=== PATIENT | female | born 1945 | race Caucasian/White ===

== ENCOUNTER 2017-11-24 05:29 | Inpatient (IN) | payer MEDICARE ==
[~2017-11-24] VITALS: Ht 154.9 cm; Wt 52.8 kg
[~2017-11-24 05:29] MED LIST: ALEVE; Z.0.BYSTOLIC10 MG PO; Z.0.FLEXERIL10 MG PO; Z.0.SYNTHROID137 MCG PO
--- NOTE | 2017-11-24 06:55 | Diagnostic Imaging Report ---
EXAMINATION: Head CT without contrast. HISTORY:Confusion and slurred speech. COMPARISON:None. TECHNIQUE: Multidetector axial images were obtained from the foramen magnum to the vertex without contrast. The images were reconstructed using brain and bone algorithms. Thin section brain images were reformatted into coronal and sagittal planes. Dose modulation, iterative reconstruction, and/or weight based adjustment of the mA/kV was utilized to reduce the radiation dose to as low as reasonably achievable. Intravenous contrast: None IMAGE QUALITY: Acceptable. FINDINGS: Skull/scalp: No lytic or blastic. lesions. No surgical changes. Parenchyma: Nonspecific few, scattered supratentorial white matter patchy hypodensity are likely related to small vessel ischemic changes. No acute hemorrhage, mass or acute major vascular territorial infarct. Arteries: No density suggestive of thrombosis. Dural sinuses: No abnormal density suggestive of thrombosis. Ventricles: No hydrocephalus or displacement. Extra-axial spaces: No abnormal density. Brain volume: Generalized age-related cerebral volume loss. Craniocervical junction: No mass, Chiari malformation, or basilar invagination. Sella: No mass. Paranasal/mastoid sinuses: Imaged portions unremarkable. IMPRESSION: No acute intracranial abnormality. Mild supratentorial white matter microvascular ischemic changes. Generalized age-related cerebral volume loss. Signed by: Dr. Jessica Smith M.D. on 11/24/2017 6:51 AM
[2017-11-24] MEDS ORDERED: ASPIRIN 325 MG TAB PO ONE (07:00)
[2017-11-24 08:14] VITALS: BP 139/72
[2017-11-24 08:56] VITALS: BP 139/72
[2017-11-24] MEDS: SODIUM CHLORIDE 0.9% 1000ML 1,000 ML IV SCH (10:30)
--- NOTE | 2017-11-24 12:01 | Diagnostic Imaging Report ---
Examination: Brain MRI without Contrast History: 72-year-old female with confusion and slurred speech. Comparison studies: Head CT performed earlier the same day. Technique: Precontrast: Hi resolution Sag T1 with coronal and axial reformats. Axial DWI, T2, T2 flair, gradient echo or SWI Intravenous contrast: None. Findings: Structural lesions: No intra-or extra-axial masses. No hematomas. Atrophy: General: Symmetric and age appropriate. Focal: No disproportionate lobar, hippocampal, mesencephalic, pontine, or cerebellar atrophy. Recio matter: Cortex:No signal abnormalities. No encephalomalacia. Basal ganglia: No atrophy or signal abnormalities. Thalami: No signal abnormalities. Micro hemorrhages: None. White matter signal intensity: There are patchy and confluent areas of T2/FLAIR hyperintensity in the periventricular and subcortical white matter, nonspecific. . Subarachnoid spaces: No signal abnormalities. Ventricles: Normal in size and configuration. No hydrocephalus. Hippocampi, fornix and mammillary bodies: Normal in size and symmetric. Other: Skull: No bone marrow abnormalities. Vessels: Expected flow voids present in the major arteries and dural sinuses.. Sella: Normal in size. No intra-or suprasellar abnormalities. Cranio-cervical junction: No abnormalities. Patent foramen magnum. No Chiari one malformation. Paranasal sinuses: No T2 hyperintense mucosal thickening. IMPRESSION: 1. No acute intracranial abnormality, specifically, no acute infarct. 2. Mild chronic microvascular ischemic change. Signed by: Dr. Ana Cristina Arevalo M.D. on 11/24/2017 11:57 AM
[2017-11-24 12:09] VITALS: BP 142/67
[2017-11-24] MEDS ORDERED: LEVOTHYROXINE75 MCG PO (12:18)
[2017-11-24] MEDS ORDERED: BYSTOLIC2.5 MG PO (12:18)
[2017-11-24] MEDS ORDERED: IBUPROFEN 200 MG TAB PO PRN (13:45)
[2017-11-24 14:10] LABS: CREATINE KINASE 168 IU/L (29-168)
[2017-11-24 15:53] VITALS: BP 144/66
--- NOTE | 2017-11-24 16:47 | History and Physical ---
HISTORY OF PRESENT ILLNESS: Patient is doing well. She came originally with slurred speech. MRI of the head is completely unremarkable. No evidence of any stroke. REVIEW OF SYSTEMS CARDIOVASCULAR: No chest pain or palpitation. RESPIRATORY: No shortness of breath. No cough. GASTROINTESTINAL: No nausea. No vomiting. No diarrhea. GENITOURINARY: No urinary frequency. No dysuria. MUSCULOSKELETAL: She has chronic pain in the right leg. PAST MEDICAL HISTORY: Hypothyroidism and hypertension. ALLERGIES: ALLERGIC TO ASPIRIN, CODEINE, OXYCODONE AND ERYTHROMYCIN. SOCIAL HISTORY: She does not smoke. She does not drink. PHYSICAL EXAMINATION HEART: Shows regular rhythm. Normal S1 and S2 sounds. LUNGS: Clear bilaterally. ABDOMEN: Soft. EXTREMITIES: Show no evidence of cyanosis, edema, or trauma. NEUROLOGIC: Alert and oriented x3. Cranial nerves II through XII within normal limits. Motor strength is 5/5 in upper and lower extremities. VITAL SIGNS: Blood pressure is 142/67, temperature 97.3, heart rate 79 per minute, respiratory rate 14 per minute, and oxygen saturation 98%. FINAL IMPRESSION 1. Slurred speech which is completely resolved, most likely secondary to questionable transient ischemic attack. 2. Hypertension. 3. Hypothyroidism. 4. Right leg pain. PLAN: We consulted Dr. Laure Garcia. MRI showed no evidence of stroke. Carotid Doppler and echocardiogram have been ordered. We are going to order an arterial Doppler of the right leg because of the pain that she is having. We are going to resume the home medications including antihypertensive regimen and thyroid medication. We are going to give some Aleve for pain. Workup in progress. She is on telemetry. Job#: [id number] HARDIK
[2017-11-24 17:12] LABS: CLARITY,URINE CLEAR (CLEAR); COLOR,URINE YELLOW (YELLOW)
[2017-11-24 17:15] LABS: LEUKOCYTE ESTERASE ,URINE NEGATIVE (NEGATIVE); NITRITE,URINE NEGATIVE (NEGATIVE)
[2017-11-24 17:24] LABS: PROTEIN,URINE DIPSTICK NEGATIVE (NEGATIVE)
[2017-11-24 17:25] LABS: BILIRUBIN,URINE NEGATIVE (NEGATIVE); KETONES,URINE NEGATIVE (NEGATIVE); URINE UROBILINOGEN 0.2 mg/dL (0.2 - 1)
[2017-11-24 17:27] LABS: BACTERIA,URINE FEW /HPF; EPITHELIAL CELLS,URINE FEW /LPF; WBC,URINE (MAN) 0-5 /HPF (0-5)
[2017-11-24 19:32] LABS: CREATINE KINASE 220 IU/L (29-168)
[2017-11-24 19:59] VITALS: BP 137/64
[2017-11-24 20:00] VITALS: BP 137/64
[2017-11-25] VITALS (7 sets, daily range): BP systolic 135–165; BP diastolic 58–79
--- NOTE | 2017-11-25 02:07 | Consultation ---
DATE OF CONSULTATION: November 24, 2017 NEUROLOGY CONSULT NOTE HISTORY OF PRESENT ILLNESS: Ms. Houser is a 72-year-old right hand dominant woman with past medical history significant for hypertension and thyroid disease, admitted to [facility] on November 24, 2017 for symptoms suspicious for a "stuttering TIA." For the past 3 days, the patient has experienced a decrease in sleep secondary to pain affecting the right hip, right leg, and to a lesser extent, the left leg. In addition to this decrease in sleep, the patient has experienced increased psychosocial stress secondary to caring for her grandchildren who are residing at her home at present. For the past 3 evenings, the patient and her have noticed slightly worsening confusion, which is further characterized as the patient "loosing her train of thoughts." Ms. Houser endorses possible slurred speech and expressive aphasia as well. These symptoms are not present in the mornings: Her reports that patient does "very well" in the mornings. The symptoms only appear in the evenings and last for a few hours. Ms. Houser reports no visual field cut or other disturbance, facial droop, hemiparesis, hemihypesthesia, poor balance or impairment of gait, or dizziness. She does report fatigue. The patient's reports Ms. Houser experiences occasional confusion, once again described as "losing her train of thoughts," for the past one to two years. Both the patient and her have discussed this with patient's primary care physician who attributed symptoms to normal aging. Due to the symptoms described above, but more specifically for the pain in the patient's right hip and legs, Ms. Houser presented to the emergency care in the [facility] of November 24, 2017 for further evaluation. Ms. Houser was subsequently admitted to [facility] under observation status for further evaluation and treatment for a "stuttering TIA." Ms. Houser does report an intermittent resting tremor affecting the right hand. Both, she and her endorse hypophonia and slowness of movement. The patient reports possible freezing as well. There is no family history of tremor or Parkinson's disease. REVIEW OF SYSTEMS: Fatigue, joint pains, confusion, dysarthria, aphasia, hypophonia, slowness of movement, and pain in the right and left leg. Otherwise, the 12-point review of systems is negative. PAST MEDICAL HISTORY: Hypertension and hypothyroidism. PAST SURGICAL HISTORY: Bilateral cataract removal and tonsillectomy. PAST HOSPITALIZATIONS: Surgeries/procedures as listed, bronchitis in high school, and childbirth x2. FAMILY MEDICAL HISTORY: Patient's paternal and maternal grandparents are . The paternal grandfather's medical history is unknown. The paternal grandmother is from coronary artery disease with myocardial infarction. Both maternal grandparents are from natural causes/old age. The patient's father and mother are both . Ms. Houser's father is from stroke. Ms. Houser's mother had a history of diabetes mellitus, colon cancer, and failure to thrive. The patient has one sibling who is alive. He was recently diagnosed with metastatic cancer, primary unknown at present. Ms. Houser has 2 daughters who are both alive and healthy. SOCIAL HISTORY: The patient is . She is retired. The patient does not report current or prior tobacco exposure or recreational drug use. HOME MEDICATIONS: Please see the list available in the electronic medical record. ALLERGIES: ERYTHROMYCIN. NO KNOWN FOOD ALLERGIES. NO KNOWN ALLERGIES TO LATEX. NO KNOWN ALLERGIES TO IODINE OR OTHER CONTRAST MATERIALS. PHYSICAL EXAMINATION VITAL SIGNS: Height 61 inches and weight 114 pounds; BMI 21.6 kg per meter squared. Blood pressure 139/72 mmHg, pulse 74 beats per minute, respiratory rate 14 breaths per minute, and oxygen saturation 98% on room air. GENERAL: Patient is awake and alert, does not appear distressed. Masked facies. HEENT: Normocephalic, atraumatic. Pupils are surgical. Moist mucous membranes. NECK: Supple. No appreciable thyromegaly. No appreciable carotid bruits. CARDIOVASCULAR: S1 and S2. Regular rate and rhythm. No murmurs, rubs, or gallops. RESPIRATORY: Clear to auscultation bilaterally. No wheezes, rhonchi, or rales. EXTREMITIES: The skin is warm and dry. No clubbing, cyanosis, or edema. The posterior tibial and dorsalis pedis pulses are 2+ and symmetric. SKIN: No rashes or lesions. NEUROLOGIC Memory/Attention: The patient is awake and alert to person, place, time, and situation. Cranial Nerves: Cranial nerve 1-not tested. Cranial nerves 2, 3, 4, and 6-pupils are surgical. Extraocular movements are intact except as follows: Impairment of upward gaze. No nystagmus. Cranial nerve 5-sensation to light touch and pinprick is intact in the bilateral V1 through V3 distributions. Strength of the temporalis and masseter muscles is within normal limits. Cranial nerve 7-The face is symmetric as are all facial movements. Strength is within normal limits. Cranial nerve 8-Hearing is intact to finger rub bilaterally. Cranial nerve 9, 10-The soft palate elevates equally and symmetrically. Cranial nerve 11-Normal strength of the bilateral sternocleidomastoid and trapezius muscles. Cranial nerve 12-The tongue protrudes midline and moves symmetrically from [id number]. Strength: Bulk is normal. Strength is 5/5 in the bilateral deltoids, biceps, triceps, wrist flexors and extensors, finger flexors and extensors, intrinsic hand muscles, hip flexors, knee flexors and extensors, ankle dorsiflexion and plantar flexion, and intrinsic foot muscles. Tone is increased in all 4 extremities with cogwheeling in both arms. DTRs: Deep tendon reflexes are 2+ and symmetric at the triceps, biceps, brachioradialis, patellas, and Achilles. Plantar responses are flexor bilaterally. Sensation: Sensation is intact to light touch and pinprick in both arms and both legs. Cerebellar: Ezzvmt-lefr-fquyts and heel-barber movements are slowed without dysmetria or other impairment. There is segmental hypokinesis with finger and toe tapping, right greater than left. Gait: Spontaneous gait demonstrates a stooped posture and widened base with diminished arm swing bilaterally. Speech: Spontaneous speech is hypophonic without appreciable dysarthria or aphasia. Repetition is intact. Involuntary Movements: None. Pronator Drift: None. LABORATORY DATA: A complete metabolic panel is unremarkable. Cardiac enzymes are negative x1. The CBC with differential and platelets reveals a white blood cell count of 8.2 with a normal differential. The hemoglobin and hematocrit are 13.3 and 38.2, respectively. The platelet count is 208. PT 13.3 and INR 1.1. A urine drug screen was negative. DIAGNOSTIC STUDIES: Electrocardiogram on November 24, 2017: Normal sinus rhythm at [address] of the brain without contrast 11/24/2017: On my review, there is no evidence of recent large territorial ischemia, hemorrhage, mass, or mass effect. There is diffuse cerebral atrophy, appropriate for age. There are findings compatible with mild chronic small vessel ischemic disease. ASSESSMENT AND PLAN: Ms. Houser is a 72-year-old right hand dominant woman with past medical history significant for hypertension and hypothyroidism, admitted to [facility] on November 24, 2017 with mild confusion and possible dysarthria and expressive aphasia present only in the evenings in the setting of increased psychosocial stress and decreased sleep secondary to pain in the right hip and both legs, right greater than left. The patient has undergone a detailed neurological examination with findings as documented above. Patient's laboratory data and other diagnostic studies have been reviewed and are documented above. In my opinion, it is unlikely that Ms. Houser has experienced a transient ischemic attack/stroke. The above symptoms are probably secondary to increased psychosocial stress in combination with decreased sleep over the past 3 days. In the patient's history and on her neurological examination, there are symptoms and signs compatible with Parkinson's disease. Ms. Houser is not currently taking any medications, nor has she taken any medications in the past, which would cause extrapyramidal side effects. Therefore, drug effect cannot be the source of the patient's parkinsonism. A MRI of the brain without contrast has been ordered and will be obtained to evaluate for chronic small vessel ischemic disease as a source of vascular parkinsonism; however, if the MRI of the brain is negative, Ms. Houser will be prescribed antiparkinsonian medication for probable idiopathic Parkinson's disease. Thank you for this consultation. I will continue to follow this patient while she remains in the hospital. Time spent: 70 minutes. Job#: [id number] VAS MTDD
[2017-11-25] MEDS: IBUPROFEN 200 MG TAB PO PRN ×2 (02:54→09:19)
[2017-11-25] MEDS: SODIUM CHLORIDE 0.9% 1000ML 1,000 ML IV SCH ×2 (02:54→10:06)
[2017-11-25 03:26] LABS: CREATINE KINASE MB 9.5 ng/mL (0-5.0)
[2017-11-25] MEDS: LEVOTHYROXINE SODIUM 75 MCG TAB PO SCH (05:26)
[2017-11-25 06:37] LABS: BASOPHILS # (AUTO) 0.1 (0.0-0.1); BASOPHILS % 0.5 % (0.0-1.0); EOSINOPHILS # (AUTO) 0.1 (0.0-0.4); EOSINOPHILS % 0.4 % (0.0-6.0); HEMOGLOBIN 12.7 g/dL (12.0-16.0); LYMPHOCYTES # (AUTO) 3.3 (1.0-3.2); MEAN CORPUSCULAR HEMOGLOBIN 30.3 pg (28-32); MEAN CORPUSCULAR HGB CONC 33.4 g/dL (31-35); MEAN CORPUSCULAR VOLUME 90.7 fL (81-99); MONOCYTES # (AUTO) 0.8 (0.2-0.8); MONOCYTES % 7.3 % (4.4-11.3); NEUTROPHILS % 62.5 % (38.7-80.0); PLATELET COUNT 241 x10e3/uL (140-360); RED BLOOD COUNT 4.19 x10e6/uL (3.6-5.1); RED CELL DISTRIBUTION WIDTH 13.1 % (11.7-14.4)
[2017-11-25 06:57] LABS: ANION GAP 15.7 mmol/L (8-16); BLOOD UREA NITROGEN 15 mg/dL (7-26); BUN/CREATININE RATIO 16 (6-25); CALCIUM 9.3 mg/dL (8.4-10.2); CARBON DIOXIDE 20 mmol/L (22-29); CHLORIDE 103 mmol/L (98-107); CHOL/HDL RATIO 3.1 (3.0-3.6); CHOLESTEROL 172 MD/DL (0-199); CREATININE, SERUM 0.91 mg/dL (0.57-1.11); EST GLOMERULAR FILTRATION RATE > 60 ML/MIN (60-); GLUCOSE 98 mg/dL (74-118); HDL CHOLESTEROL 55 MG/DL (40-60); LDL CHOLESTEROL 105 MG/DL (60-130); POTASSIUM 3.7 mmol/L (3.5-5.1); SODIUM 135 mmol/L (136-145); TRIGLYCERIDES 58 MG/DL (0-149)
[2017-11-25] MEDS: ASPIRIN 325 MG TAB EC PO SCH (09:19)
[2017-11-25] MEDS ORDERED: ZOLPIDEM TARTRATE 5 MG TAB PO PRN (12:15)
[2017-11-25] MEDS ORDERED: TRAMADOL/APAP 37.5MG-325MG TAB PO PRN (12:15)
--- NOTE | 2017-11-25 13:04 | Progress Note ---
DATE: INTERNAL MEDICINE PROGRESS NOTE SUBJECTIVE: Patient is complaining of right hip pain. She was found to have high CPK also, insomnia is also her complaint. Dr. Garcia, neurology, saw the patient. Her impression is that she most likely has also Parkinson's disease. She denies any other symptoms like chest pain or shortness of breath. PHYSICAL EXAMINATION VITAL SIGNS: Blood pressure 151/68, temperature 96.6, heart rate 91 per minute, respiratory rate 18 per minute, oxygen saturation 98%. HEART: Shows regular rhythm. Normal S1, S2 sounds. LUNGS: Clear bilaterally. ABDOMEN: Soft. EXTREMITIES: Show no evidence of cyanosis, edema, or trauma. Pulses are decreased on both pedal arteries in both feet. LABORATORY DATA: On the BMP, sodium 135, potassium 3.7, chloride 103, CO2 of 20, BUN 15, creatinine 0.91, glucose 98. On the CBC, white blood count 11,100, hemoglobin 12.7, hematocrit 38.0, platelet count 241,000. CPK has been elevated along with CK-MB, but troponins x3 are completely normal. FINAL IMPRESSION 1. Parkinson's disease. 2. Rhabdomyolysis. 3. Right hip and right leg pain. 4. Uncontrolled hypertension. 5. Insomnia. 6. Hypothyroidism. PLAN OF TREATMENT: Continue IV fluids with normal saline 75 mL an hour. Repeat CK and CK-MB tomorrow. We are going to consult Dr. Cartwright, solution engineer, since he is her solution engineer from the past because of elevated CK and CK-MB, which most likely is secondary to rhabdomyolysis. Continue aspirin 325 mg daily, Zofran 4 mg IV q.4. hours as needed, levothyroxine 75 mcg daily, ibuprofen 400 mg q.6 hours as needed. She is going to be on BuSpar 5 mg q.8 hours as needed for anxiety and trazodone at night as needed. We are going to discontinue telemetry. We are going to order an MRI of the lumbar spine and the right hip also. Dr. Muller will resume her care in the morning. Job#: [id number] LPA
[2017-11-25] MEDS: BUSPIRONE HCL 5 MG TAB PO SCH ×2 (15:12→21:00)
[2017-11-25] MEDS: CARBIDOPA/LEVODOPA 25/100 TAB PO SCH ×2 (15:12→21:00)
[2017-11-25 15:34] LABS: CREATINE KINASE 933 IU/L (29-168)
[2017-11-25] MEDS: ONDANSETRON HCL INJ 2 MG/ML VIAL IV PRN ×2 (18:18→22:40)
[2017-11-25] MEDS: TRAZODONE HCL 50 MG TAB PO SCH (21:00)
[2017-11-25] MEDS ORDERED: HYDRALAZINE HCL 20 MG/ML VIAL IV PRN (21:15)
[2017-11-25] MEDS ORDERED: APIXAB 2.5 MG TABLET PO STA (23:31)
--- NOTE | 2017-11-25 23:42 | Consultation ---
DATE OF CONSULTATION: CARDIOLOGY CONSULTATION REASON FOR CONSULTATION: Abnormal labs. CONSULTING PHYSICIAN: Dr. Villela. HISTORY OF PRESENT ILLNESS: Ms. Houser is a 72-year-old female who is well known to our practice and was actually seen approximately 3 weeks ago and was doing well at that time. She reports that she came in to the ER after episodes of slurred speech and also worsening right lower extremity pain that had been ongoing for a few weeks. On admission, MRI of the head was unremarkable and no evidence of acute stroke. Reason for consultation was due to elevated CK-MB. Patient denies any chest pain, shortness of breath, palpitation, dizziness, syncope or dysuria. She does report trouble with her memory. REVIEW OF SYSTEMS: Negative except as mentioned above. PAST MEDICAL HISTORY: Includes hypothyroidism and hypertension. SOCIAL HISTORY: She does not smoke or drink. She lives with family and has multiple children. PHYSICAL EXAMINATION: VITALS: Temperature 97.6, pulse 73, respiratory rate 12, blood pressure 135/58. Oxygen saturation 100% on room air. GENERAL: Alert and oriented x3, resting comfortably in bed, does not appear to be in any acute distress. NECK: Supple. No JVD noted LUNGS: Clear to auscultation throughout. No wheezing, no rhonchi, no crackles. CARDIOVASCULAR: Regular rate and rhythm. Normal S1, S2. No S3 or S4 auscultated. No gallops. ABDOMEN: Soft, nontender. LOWER EXTREMITIES: 2+ pedal pulses. CARDIOVASCULAR MEDICATIONS: Aspirin 325 p.o. daily, Bystolic 5 mg p.o. daily. LABS: WBC 11.19, hemoglobin 12.7, hematocrit 38.0, platelet 241. Sodium 135, potassium 3.7, BUN 15, creatinine 0.91. Creatine kinase 507. CK-MB 9.50. Troponin 0.002. LDL 105, HDL 55, total cholesterol 172. TELEMETRY: Normal sinus rhythm. IMPRESSION 1. Right lower extremity pain, likely musculoskeletal. 2. Hypertension. 3. Hypothyroidism. 4. Abnormal cardiac enzymes. RECOMMENDATIONS: Carotid ultrasound, echocardiogram, and also lower extremity arterial ultrasound, all normal. Continue the above list of cardiac medications. Plan for stress test in the course of this hospital stay. Maintain on telemetry. Repeat cardiac enzymes. Continue care with neurology. Hydration discussed with patient and also family. We will continue to follow this patient closely. Thank you for this consultation. Dictated By: Pepper Valentine NP Job#: [id number] VAS
[2017-11-25] MEDS ORDERED: AMIODARONE HCL 150MG 100 ML IV ONE (23:45)
[2017-11-26] VITALS (66 sets, daily range): BP systolic 62–156; BP diastolic 40–144
[2017-11-26] MEDS: SODIUM CHLORIDE 0.9% 1000ML 1,000 ML IV SCH ×2 (00:05→09:24)
[2017-11-26] MEDS ORDERED: DIGOXIN INJ 0.25 MG/ML 2 ML AMP ONE (01:52)
[2017-11-26] MEDS: SODIUM CHLORIDE 0.9% 1000ML 500 ML IV SCH ×2 (01:56→02:13)
[2017-11-26] MEDS ORDERED: DIGOXIN INJ 0.25 MG/ML 2 ML AMP IV ONE (02:00)
[2017-11-26 02:43] LABS: CREATINE KINASE MB 15.3 ng/mL (0-5.0)
[2017-11-26 05:08] LABS: ANION GAP 12.8 mmol/L (8-16); BLOOD UREA NITROGEN 15 mg/dL (7-26); BUN/CREATININE RATIO 19 (6-25); CALCIUM 8.9 mg/dL (8.4-10.2); CARBON DIOXIDE 18 mmol/L (22-29); CHLORIDE 108 mmol/L (98-107); CREATININE, SERUM 0.81 mg/dL (0.57-1.11); EST GLOMERULAR FILTRATION RATE > 60 ML/MIN (60-); GLUCOSE 142 mg/dL (74-118); POTASSIUM 3.8 mmol/L (3.5-5.1); SODIUM 135 mmol/L (136-145)
[2017-11-26] MEDS ORDERED: AMIODARONE 900MG 500 ML IV SCH ×2 (06:00)
[2017-11-26] MEDS: LEVOTHYROXINE SODIUM 75 MCG TAB PO SCH (06:14)
[2017-11-26 08:41] LABS: CREATINE KINASE MB 37.6 ng/mL (0-5.0)
[2017-11-26] MEDS ORDERED: NEBIVOLOL 10 MG TAB PO SCH (09:00)
[2017-11-26] MEDS: APIXAB 2.5 MG TABLET PO SCH ×2 (09:00→15:23)
[2017-11-26] MEDS: BUSPIRONE HCL 5 MG TAB PO SCH ×4 (09:00→21:00)
[2017-11-26] MEDS: CARBIDOPA/LEVODOPA 25/100 TAB PO SCH ×4 (09:00→21:00)
[2017-11-26] MEDS: ASPIRIN 325 MG TAB EC PO SCH (09:00)
--- NOTE | 2017-11-26 12:02 | Progress Note ---
DATE: November 26, 2017 CARDIOLOGY PROGRESS NOTE SUBJECTIVE: The patient developed chest pain overnight. She was found to be in atrial fibrillation with rapid ventricular response and transferred to the ICU for amiodarone drip. She subsequently converted back to normal sinus rhythm early this morning. She is currently without symptoms. OBJECTIVE: VITAL SIGNS: Temperature 98.6 degrees, pulse 88, respiratory rate 16, BP 151/78. Oxygen saturation 96% on room air. GENERAL: Elderly woman in no acute distress. Awake and alert. LUNGS: Clear to auscultation bilaterally. No wheezes or crackles. CARDIOVASCULAR: Normal rate, regular rhythm. No murmur. Normal S1, S2. ABDOMEN: Soft, nontender. EXTREMITIES: No edema. CARDIAC MEDICATIONS: 1. Levothyroxine 75 mcg p.o. daily. 2. Aspirin 325 mg p.o. q.a.m. 3. mg p.o. b.i.d. 4. 5 mg p.o. daily. LABORATORIES: Sodium 135, potassium 3.8, chloride 108, CO2 18, BUN 15, creatinine 0.81. CK 1919. CK-MB 37.6 with a troponin I of 0.162. EKG: Afib with RVR with PVCs or aberrantly conducted complexes, marked ST abnormality. IMPRESSION: 1. Atrial fibrillation with rapid ventricular response. 2. Elevated creatine kinase and isoenzyme of creatine kinase with muscle and brain subunits. 3. Right lower extremity pain, likely musculoskeletal. 4. Hypertension. 5. Hypothyroidism. RECOMMENDATIONS: Amiodarone drip was stopped due to bradycardia. Start p.o. amiodarone as well as metoprolol, change aspirin to 81 mg p.o. daily. Given significant ST changes during Afib with RVR, will proceed with nuclear stress test for further evaluation for ischemia. Patient was already started on Eliquis overnight. We will continue. Thank you for this consult. We will continue to follow. Job#: [id number] [place]
--- NOTE | 2017-11-26 12:09 | Diagnostic Imaging Report ---
TECHNIQUE: Magnetic resonance imaging of the RIGHT HIP was performed WITHOUT injected contrast. HISTORY: Right hip pain COMPARISON: None available. FINDINGS: Bone: No focal or infiltrative bone marrow replacing abnormality. No osteonecrosis or acute fracture. Femoroacetabular Joint: Acetabular labrum: Fraying of the superior labrum. No detached tear. Articular Cartilage: Partial thickness cartilage loss without focal defect. Muscle and tendons: Gluteal tendons are intact. Distal psoas tendon edema. Axial image 20. Hamstring origins intact. Soft tissues: Otherwise unremarkable. IMPRESSION: Minimal degenerative arthrosis of the right hip. Possible right iliopsoas tendon tenosynovitis Signed by: Dr. Ever Graff M.D. on 11/26/2017 12:05 PM
[2017-11-26] MEDS ORDERED: REGADENOSON 0.4 MG/5 ML SYR IV ONE (12:10)
--- NOTE | 2017-11-26 13:24 | Diagnostic Imaging Report ---
EXAMINATION: MRI of the lumbar spine without contrast HISTORY: Low back pain radiating to right lower extremity COMPARISON: None. TECHNIQUE: Sagittal T1, T2, STIR; axial T2 and proton density. FINDINGS: It is assumed that there are 5 lumbar vertebrae. Curvature/Alignment: Normal lordosis. Vertebrae: No evidence of recent fracture, infection, or neoplasm. Chronic endplate degenerative changes at L2-L3. Conus: Normal, terminating at T12-L1 Cauda equina: Unremarkable. Lower thoracic: Unremarkable. Paraspinal soft tissues: Tiny T2 hyperintense focus in the left kidney may correspond to a cyst. Degenerative changes: L1-L2: Mild symmetric disc bulge. Approximately 5 mm AP 1.3 cm superior to inferior central and slightly left paracentral inferiorly migrated disc extrusion which flattens the ventral thecal sac, and no definite nerve compression. L2-L3: Mild symmetric disc bulge and facet arthrosis. Minimal retrolisthesis. No significant canal or foraminal stenosis. L3-L4: Mild symmetric disc bulge, ligamenta flava thickening and facet arthrosis. Minimal canal and mild left foraminal stenoses. L4-L5: Mild symmetric disc bulge, 2 mm AP diameter central disc protrusion with underlying annular fissuring, ligamenta flava thickening and facet arthrosis. Moderately severe spinal canal stenosis. Moderate right foraminal narrowing. L5-S1: Minimal symmetric disc bulge and moderate facet arthrosis. No significant canal or foraminal stenosis. IMPRESSION: 1. Moderately severe degenerative spinal canal and right foraminal stenosis at L4-L5. 2. Central inferiorly migrated disc extrusion at L1-L2 without evidence of nerve root compression. 3. Minimal degenerative retrolisthesis at L2-L3. Signed by: Dr. Gaye Maravilla M.D. on 11/26/2017 1:20 PM
[2017-11-26] MEDS: METOPROLOL TARTRATE 25 MG TAB PO SCH (15:23)
[2017-11-26] MEDS: AMIODARONE HCL 200 MG TAB PO SCH (15:23)
[2017-11-26] MEDS ORDERED: KETOROLAC TROMETHAMINE 30 MG/ML VIAL IV PRN (18:45)
--- NOTE | 2017-11-26 20:11 | Cardiology Report ---
DATE OF STUDY: November 26, 2017 NUCLEAR STRESS REPORT INDICATION: Chest pain. DESCRIPTION OF PROCEDURE: Pharmacologic stress testing was performed with regadenoson per protocol. The heart rate was 74 beats per minute at rest and increased to 99 beats per minute during the regadenoson infusion. The rest blood pressure was 156/76 and decreased to 130/65 mmHg, which is a normal response. The patient did not develop any significant symptoms. The resting electrocardiogram demonstrated normal sinus rhythm. There were no ST-segment changes consistent with myocardial ischemia. Myocardial perfusion imaging was performed at rest following the injection of 11 mCi of tetrofosmin. At peak pharmacologic effect, the patient was injected with 27 mCi of tetrofosmin. Gated post stress tomographic imaging was performed. FINDINGS: The overall quality of study is fair. Left ventricular cavity is noted to be normal size on the rest and stress studies. SPECT images demonstrate homogenous tracer distribution throughout the myocardium. Gated SPECT imaging reveals normal myocardial thickening and wall motion. The left ventricular ejection fraction was calculated to be greater than 70%. IMPRESSION: Myocardial perfusion imaging is normal. Overall, left ventricular systolic function was normal without regional wall motion abnormalities. Job#: [id number]
[2017-11-26] MEDS: TEMAZEPAM 15 MG CAP PO SCH ×2 (21:00→22:00)
[2017-11-26] MEDS: TRAZODONE HCL 50 MG TAB PO SCH (21:00)
[2017-11-27] VITALS (27 sets, daily range): BP systolic 88–170; BP diastolic 43–104
[2017-11-27] MEDS: SODIUM CHLORIDE 0.9% 1000ML 1,000 ML IV SCH ×2 (03:24→15:26)
[2017-11-27 05:03] LABS: BASOPHILS % 0.3 % (0.0-1.0); EOSINOPHILS # (AUTO) 0.1 (0.0-0.4); EOSINOPHILS % 0.8 % (0.0-6.0); HEMATOCRIT 33.1 % (34.2-44.1); HEMOGLOBIN 11.1 g/dL (12.0-16.0); MEAN CORPUSCULAR HEMOGLOBIN 29.9 pg (28-32); MEAN CORPUSCULAR HGB CONC 33.5 g/dL (31-35); MEAN CORPUSCULAR VOLUME 89.2 fL (81-99); MONOCYTES # (AUTO) 0.8 (0.2-0.8); MONOCYTES % 7.5 % (4.4-11.3); NEUTROPHILS # (AUTO) 6.6 (2.1-6.9); NEUTROPHILS % 63.1 % (38.7-80.0); PLATELET COUNT 206 x10e3/uL (140-360); RED BLOOD COUNT 3.71 x10e6/uL (3.6-5.1); RED CELL DISTRIBUTION WIDTH 13.2 % (11.7-14.4)
[2017-11-27] MEDS: LEVOTHYROXINE SODIUM 75 MCG TAB PO SCH (05:13)
[2017-11-27 05:28] LABS: ANION GAP 14.4 mmol/L (8-16); BLOOD UREA NITROGEN 14 mg/dL (7-26); BUN/CREATININE RATIO 17 (6-25); CALCIUM 8.5 mg/dL (8.4-10.2); CARBON DIOXIDE 21 mmol/L (22-29); CHLORIDE 111 mmol/L (98-107); CREATINE KINASE 1724 IU/L (29-168); CREATININE, SERUM 0.83 mg/dL (0.57-1.11); EST GLOMERULAR FILTRATION RATE > 60 ML/MIN (60-); GLUCOSE 89 mg/dL (74-118); POTASSIUM 3.4 mmol/L (3.5-5.1); SODIUM 143 mmol/L (136-145)
[2017-11-27 06:01] LABS: FREE T4 (FREE THYROXINE) 1.18 ng/dL (0.9-1.8); THYROID STIMULATING HORMONE 4.402 uIU/mL (0.350-4.940)
[2017-11-27] MEDS ORDERED: ASPIRIN 81 MG ENTERIC COATED PO ONE (08:07)
[2017-11-27] MEDS: APIXAB 2.5 MG TABLET PO SCH ×2 (08:09→16:29)
[2017-11-27] MEDS: AMIODARONE HCL 200 MG TAB PO SCH (08:09)
[2017-11-27] MEDS: METOPROLOL TARTRATE 25 MG TAB PO SCH ×2 (08:09→16:29)
[2017-11-27] MEDS: BUSPIRONE HCL 5 MG TAB PO SCH ×3 (08:19→20:27)
[2017-11-27] MEDS: CARBIDOPA/LEVODOPA 25/100 TAB PO SCH ×3 (08:19→20:42)
[2017-11-27] MEDS: ASPIRIN 81 MG ENTERIC COATED PO SCH (08:29)
[2017-11-27] MEDS ORDERED: ASPIRIN 325 MG TAB EC PO SCH (09:00)
--- NOTE | 2017-11-27 10:03 | Progress Note ---
DATE: November 27, 2017 CARDIOLOGY PROGRESS NOTE SUBJECTIVE: The patient denies chest pain or shortness of breath. Family reports she is more alert today. OBJECTIVE: VITAL SIGNS: Temperature 98.2 degrees, pulse 56, respiratory rate 20, blood pressure 112/53. Oxygen saturation is 97% on room air. GENERAL: Elderly woman in no acute distress. Awake and alert. LUNGS: Clear to auscultation bilaterally. No wheezes or crackles. CARDIOVASCULAR: Normal rate, regular rhythm. No murmur. Normal S1, S2. ABDOMEN: Soft, nontender. EXTREMITIES: No edema. CARDIAC MEDICATIONS 1. Aspirin 81 mg p.o. daily. 2. Metoprolol tartrate 25 mg p.o. b.i.d. 3. Amiodarone 200 mg p.o. daily. 4. Apixaban 5 mg p.o. b.i.d. 5. Levothyroxine 75 mcg p.o. daily. LABORATORIES: WBC 10.52, hemoglobin 11.1, hematocrit 33.1, platelets 206. Sodium 143, potassium 3.4, chloride 111, CO2 21, BUN 14, creatinine 0.83. CK 1724, CK-MB 20.1, troponin I 0.108. TSH 4.402. TELEMETRY: Normal sinus rhythm. IMPRESSION 1. Paroxysmal atrial fibrillation with rapid ventricular response, currently sinus rhythm. 2. Elevated creatine kinase and creatine kinase myocardial band, suspect rhabdomyolysis. 3. Right lower extremity pain, likely musculoskeletal. 4. Hypertension. 5. Hypothyroidism. RECOMMENDATIONS: Continue current cardiac medications. Nuclear stress test was without evidence of ischemia. However, given the significant ST changes during atrial fibrillation with RVR, plan for cardiac catheterization as an outpatient once the patient has recovered from her current illness. Please have the patient follow up with Dr. Cartwright in 2 weeks. Thank you for this consult. We will continue to follow. Job#: [id number]
[2017-11-27] MEDS ORDERED: POTASSIUM CHLORIDE 20 MEQ TAB CR PO STA (11:02)
[2017-11-27] MEDS: TEMAZEPAM 15 MG CAP PO SCH (20:27)
--- NOTE | 2017-11-27 22:39 | Consultation ---
DATE OF CONSULTATION: November 27, 2017 REASON FOR CONSULTATION: Lumbar spinal stenosis. HISTORY OF PRESENT ILLNESS: Patient is a 72-year-old woman who has had low back and right-sided leg pain for at least a couple of months. A couple of months ago, she bought a muscle stimulator to help with the leg pain. The pain radiates to the back of the thighs. Her gait has been limited according to her daughter for at least a couple of months, but she was able to take full length strides until this admission. She was brought to the hospital on November 24, 2017, because of 2 separate problems. On the one hand, her ambulation appeared to be worsening. On the other hand, she appeared intermittently confused with a transient speech disturbance. She underwent a neurological evaluation by Dr. Garcia of neurology and stroke workup including an MRI of the brain was negative. Dr. Garcia thought that she might have Parkinson disease based on her generalized bradykinesia and shuffling period. In addition, high CPK level was found, etiology of which is unknown. The patient denies any recent falls or anticholesterol medications. She underwent an MRI of the lumbar spine which revealed L4-5 moderately severe spinal stenosis with a chronic right-sided disk herniation which accounts for her lumbar radiculopathy. I was consulted. In the meanwhile, the patient had an unexpected episode of atrial fibrillation with rapid ventricular response and was transferred briefly to the intensive care unit and was placed on amiodarone drip. She was just transferred back to the floor this afternoon where I saw her. PHYSICAL EXAMINATION: The patient is alert and follows commands well. She has decreased facial expressions. She has a good deal of difficulty getting out of bed and getting back in bed. This difficulty appears to be out of proportion to any objective weakness of extremities. She has good strength in arms and adequate strength in the legs. Motor tone is increased in the legs. She is able to stand with assistance and shuffles profoundly taking very short and unstable steps. Deep tendon reflexes are 3+ in the biceps and triceps and 4+ in the patellar tendons and 3+ in the Achilles tendons. Plantar responses are flexor on the right and equivocal on the left. Bilateral Mattie responses are present. Neck has decreased range of motion, but is nontender. There is no Lhermitte phenomenon. IMPRESSION: The patient's right hip and leg pain is very likely related to the L4-5 spinal stenosis and chronic right-sided disk herniation. However, at this time, there are too many other medical tissues going on to consider surgery on her lumbar spine. Furthermore, I am very concerned about her shuffling gait which may in fact be Parkinson disease as suggested by Dr. Garcia. Finally, her diffuse hyperreflexia and bilateral Kip responses raise concern for the possibility of cervical myelopathy. I recommend a cervical magnetic resonance imaging to rule out cervical cord compression. If negative, then I would recommend a period of inpatient rehabilitation including possible pharmacological treatment for Parkinson disease. Once all of her systemic and cardiac issues have been addressed, if her leg pain persists, I will consider surgery on her lumbar spine on an elective basis. Job#: [id number] GE cc:TRAY SCHAFFER MD
[2017-11-28] VITALS (9 sets, daily range): BP systolic 92–164; BP diastolic 55–84
[2017-11-28] MEDS: SODIUM CHLORIDE 0.9% 1000ML 1,000 ML IV SCH (04:46)
[2017-11-28] MEDS: LEVOTHYROXINE SODIUM 75 MCG TAB PO SCH (06:52)
[2017-11-28] MEDS: BUSPIRONE HCL 5 MG TAB PO SCH ×3 (08:26→20:59)
[2017-11-28] MEDS: APIXAB 2.5 MG TABLET PO SCH ×2 (08:26→16:45)
[2017-11-28] MEDS: METOPROLOL TARTRATE 25 MG TAB PO SCH ×2 (08:26→16:02)
[2017-11-28] MEDS: CARBIDOPA/LEVODOPA 25/100 TAB PO SCH ×3 (08:26→19:08)
[2017-11-28] MEDS: AMIODARONE HCL 200 MG TAB PO SCH (08:26)
[2017-11-28] MEDS: ASPIRIN 81 MG ENTERIC COATED PO SCH (08:26)
--- NOTE | 2017-11-28 10:35 | Progress Note ---
DATE: November 28, 2017 CARDIOLOGY PROGRESS NOTE SUBJECTIVE: No major events overnight. Had some frequent urination after removal of her urinary catheter. Otherwise, no chest pain or shortness of breath. OBJECTIVE VITAL SIGNS: Temperature 96.6, pulse 67, respiratory rate 16, blood pressure 155/74, satting 100% on room air. GENERAL: Elderly white woman in no acute distress. Thin, well developed. CARDIOVASCULAR: Normal rate and rhythm. No murmurs, rubs or gallops. Palpable carotid pulses. Palpable radial pulses. Palpable pedal pulses. No lower extremity edema or varicosities. LUNGS: Clear to auscultation bilaterally. No respiratory distress. ABDOMEN: Soft, nontender. No masses. NEURO AND PSYCH: Alert and oriented to person, place and time. Normal affect. CARDIOVASCULAR MEDICATIONS: Reviewed. LABORATORY DATA: Reviewed. EKG DATA: Reviewed. IMPRESSION 1. Atrial fibrillation with rapid ventricular response. 2. Elevated creatine kinase and creatine kinase myocardial band. Right lower extremity pain, likely musculoskeletal. 3. Hypertension. 4. Hypothyroidism. RECOMMENDATIONS: Continue oral amiodarone as well as metoprolol. Aspirin 81 mg daily. Continue Eliquis. Stress test showed normal myocardial perfusion. Thank you for this consult. Will continue to follow. Job#: [id number]
[2017-11-28 12:13] LABS: CLARITY,URINE SL CLOUDY (CLEAR); COLOR,URINE YELLOW (YELLOW); KETONES,URINE TRACE (NEGATIVE); LEUKOCYTE ESTERASE ,URINE 1+ (NEGATIVE); NITRITE,URINE NEGATIVE (NEGATIVE); PROTEIN,URINE DIPSTICK NEGATIVE (NEGATIVE)
[2017-11-28 12:14] LABS: BACTERIA,URINE RARE /HPF; BILIRUBIN,URINE NEGATIVE (NEGATIVE); EPITHELIAL CELLS,URINE FEW /LPF; URINE UROBILINOGEN 0.2 mg/dL (0.2 - 1)
[2017-11-28] MEDS: TEMAZEPAM 15 MG CAP PO SCH (21:50)
[2017-11-29] VITALS (8 sets, daily range): BP systolic 111–144; BP diastolic 54–69
[2017-11-29] MEDS: LEVOTHYROXINE SODIUM 75 MCG TAB PO SCH (06:25)
[2017-11-29] MEDS: BUSPIRONE HCL 5 MG TAB PO SCH ×3 (08:53→22:38)
[2017-11-29] MEDS: ASPIRIN 81 MG ENTERIC COATED PO SCH (08:53)
[2017-11-29] MEDS: CARBIDOPA/LEVODOPA 25/100 TAB PO SCH ×2 (08:53→20:54)
[2017-11-29] MEDS: APIXAB 2.5 MG TABLET PO SCH ×2 (08:53→17:42)
[2017-11-29] MEDS: AMIODARONE HCL 200 MG TAB PO SCH (08:53)
[2017-11-29] MEDS: METOPROLOL TARTRATE 25 MG TAB PO SCH ×2 (08:53→17:43)
[2017-11-29] MEDS: LINEZOLID 600 MG/D5W 300ML 300 ML IV SCH ×2 (10:45→22:38)
--- NOTE | 2017-11-29 11:14 | Progress Note ---
DATE: November 29, 2017 CARDIOLOGY PROGRESS NOTE SUBJECTIVE: The patient denies chest pain or shortness of breath. OBJECTIVE VITALS: Temperature 97.3 degrees, pulse 86, respiratory rate 18, blood pressure 111/54, oxygen saturation 97% on room air. GENERAL: Elderly woman in no acute distress. Awake and alert. LUNGS: Clear to auscultation bilaterally. No wheezes or crackles. CARDIOVASCULAR: Normal rate. Regular rhythm. No murmur. Normal S1 and S2. ABDOMEN: Soft and nontender. EXTREMITIES: No edema. CARDIAC MEDICATIONS 1. Aspirin 81 mg p.o. daily. 2. Metoprolol tartrate 25 mg p.o. b.i.d. 3. Amiodarone 200 mg p.o. daily. 4. Apixaban 5 mg p.o. b.i.d. 5. Levothyroxine 75 mcg p.o. daily. LABS: None today. Telemetry is normal sinus rhythm. IMPRESSION 1. Paroxysmal atrial fibrillation with rapid ventricular response: Currently sinus rhythm. 2. Elevated CK and CK-MB: Suspect rhabdomyolysis. 3. Right lower extremity pain, likely musculoskeletal. 4. Hypertension. 5. Hypothyroidism. RECOMMENDATIONS: Continue current cardiac medications. Nuclear stress test was without evidence of ischemia. However, given significant S/T changes during atrial fibrillation with rapid ventricular response, plan for cardiac catheterization as an outpatient once the patient has recovered from her current illness. The patient was instructed to follow up with Dr. Cartwright in 2 weeks. Thank you for this consult. We will continue to follow. Job#: [id number] LUZ
[2017-11-29] MEDS: TEMAZEPAM 15 MG CAP PO SCH (22:38)
[2017-11-30] VITALS (9 sets, daily range): BP systolic 101–141; BP diastolic 51–84
[2017-11-30] MEDS: LEVOTHYROXINE SODIUM 75 MCG TAB PO SCH (07:03)
[2017-11-30] MEDS: CARBIDOPA/LEVODOPA 25/100 TAB PO SCH ×3 (09:00→21:00)
[2017-11-30] MEDS: LINEZOLID 600 MG/D5W 300ML 300 ML IV SCH ×2 (09:15→21:00)
[2017-11-30] MEDS: AMIODARONE HCL 200 MG TAB PO SCH (09:17)
[2017-11-30] MEDS: METOPROLOL TARTRATE 25 MG TAB PO SCH ×2 (09:17→16:14)
[2017-11-30] MEDS: ASPIRIN 81 MG ENTERIC COATED PO SCH (09:17)
[2017-11-30] MEDS: APIXAB 2.5 MG TABLET PO SCH ×2 (09:17→16:14)
[2017-11-30] MEDS: BUSPIRONE HCL 5 MG TAB PO SCH ×3 (09:17→21:00)
--- NOTE | 2017-11-30 10:28 | Progress Note ---
DATE: November 30, 2017 CARDIOLOGY PROGRESS NOTE SUBJECTIVE: The patient denies chest pain or shortness of breath. OBJECTIVE VITALS: Temperature 96 degrees, pulse 88, respiratory rate 18, blood pressure 112/84, oxygen saturation 100% on room air. GENERAL: Awake, alert, elderly woman in no acute distress. LUNGS: Clear to auscultation bilaterally. No wheezes or crackles. CARDIOVASCULAR: Normal rate. Regular rhythm. No murmur. Normal S1 and S2. ABDOMEN: Soft and nontender. EXTREMITIES: No edema. CARDIAC MEDICATIONS 1. Aspirin 81 mg p.o. daily. 2. Metoprolol tartrate 25 mg p.o. b.i.d. 3. Amiodarone 200 mg p.o. daily. 4. Apixaban 5 mg p.o. b.i.d. 5. Levothyroxine 75 mcg p.o. daily. LABS: None today. TELEMETRY: Normal sinus rhythm. IMPRESSION 1. Paroxysmal atrial fibrillation with rapid ventricular response. Currently sinus rhythm. 2. Elevated creatine kinase and creatine kinase myocardial band. Suspect rhabdomyolysis. 3. Right lower extremity pain, likely musculoskeletal. 4. Hypertension. 5. Hypothyroidism. 6. Enterococcus and Pseudomonas aeruginosa urinary tract infection. RECOMMENDATIONS: Continue current cardiac medications. Nuclear stress test was without evidence of ischemia. However, given significant ST changes during atrial fibrillation with rapid ventricular response, plan for cardiac catheterization as an outpatient once the patient has recovered from her current illness. The patient was instructed to follow up with Dr. Cartwright in 2 weeks. Thank you for this consult. We will continue to follow. Job#: [id number]
--- NOTE | 2017-11-30 11:46 | Diagnostic Imaging Report ---
History: 72-year-old female with right hip, bilateral lower extremity pain with concern for cervical myelopathy. Comparison studies: None Technique: Sagittal T1, T2 and IR, axial T2 and axial gradient echo Intravenous contrast: None Findings: Alignment: Normal lordosis. No scoliosis. Cervicomedullary junction: Retro-dental pannus measuring 3.4 mm, with associated mild narrowing of the foramina magnum. Predental pannus measuring 8 mm. Left lateral dental panus measuring 8 mm. Soft tissues: No T2 hyperintense inflammatory changes. Spinal cord: Normal in size and signal from the foramen magnum through T6 Vertebrae: No fractures, infection or neoplasm. Degenerative changes: C2-C3: Symmetric bulging disc with 1.4 mm of posterior mass effect. Spinal canal widely patent. Bilateral foramina widely patent. C3-C4: Symmetric bulging disc with 2.4 mm of posterior mass effect, that slightly indents the spinal cord, with minimal cord signal change, most notable on STIR. Mild narrowing of the spinal canal. Bilateral foraminal widely patent. C4-C5: Mild loss of disc height. Symmetric bulging disc with 1.9 mm of posterior mass effect. Discs slightly abuts the adjacent spinal cord. Thickening of ligamentum flavum. Mild to moderate narrowing of the spinal canal. Bilateral foraminal widely patent. Minimal grade 1 retrolisthesis. C5-C6: Symmetric bulging disc with 2.3 mm of posterior mass effect. Thickening of the ligamentum flavum. Mild to moderate narrowing of the spinal canal. Mild to moderate narrowing of the left foramen. C6-C7: Symmetric bulging disc with 1 mm posterior mass effect. Spinal canal widely patent. Bilateral foraminal widely patent. C7-T1: No abnormalities. IMPRESSION: 1. Degenerative discs, greatest at C3-C4 that slightly abuts the cord with subtle cord signal change. 2. Soft tissue or ligamentous thickening adjacent to the dens which narrows the foramen magnum. Correlate clinically for the possibility of rheumatoid arthritis. Signed by: Dr. Kalen Dowd M.D. on 11/30/2017 11:42 AM
[2017-11-30] MEDS: PIPER-TAZ 3.375 GM 50 ML IV SCH ×3 (11:51→23:57)
[2017-11-30] MEDS ORDERED: TEMAZEPAM 15 MG CAP PO PRN (15:00)
[2017-11-30] MEDS ORDERED: TEMAZEPAM 15 MG CAP PO SCH (21:00)
[2017-12-01] VITALS (9 sets, daily range): BP systolic 102–148; BP diastolic 53–76
[2017-12-01] MEDS: PIPER-TAZ 3.375 GM 50 ML IV SCH ×4 (06:00→23:51)
[2017-12-01] MEDS: LEVOTHYROXINE SODIUM 75 MCG TAB PO SCH (06:00)
[2017-12-01] MEDS: BUSPIRONE HCL 5 MG TAB PO SCH (09:00)
[2017-12-01] MEDS: CARBIDOPA/LEVODOPA 25/100 TAB PO SCH ×3 (09:00→21:00)
[2017-12-01] MEDS: METOPROLOL TARTRATE 25 MG TAB PO SCH ×2 (09:04→17:48)
[2017-12-01] MEDS: AMIODARONE HCL 200 MG TAB PO SCH (09:04)
[2017-12-01] MEDS: ASPIRIN 81 MG ENTERIC COATED PO SCH (09:04)
[2017-12-01] MEDS: APIXAB 2.5 MG TABLET PO SCH ×2 (09:04→17:48)
[2017-12-01] MEDS: LINEZOLID 600 MG/D5W 300ML 300 ML IV SCH ×2 (10:00→21:20)
[2017-12-01] MEDS ORDERED: TRAMADOL HCL 50 MG TAB PO PRN (10:30)
--- NOTE | 2017-12-01 12:39 | Progress Note ---
DATE: December 01, 2017 CARDIOLOGY PROGRESS NOTE SUBJECTIVE: No major events overnight. The patient is walking around in the hallways without any difficulty with assistance. OBJECTIVE VITAL SIGNS: Temperature 96.5, pulse 69, blood pressure 102/62, satting 98% on room air. GENERAL: Elderly, white female in no acute distress. CARDIOVASCULAR: Regular rate and rhythm. No murmurs, rubs or gallops. LUNGS: Clear to auscultation bilaterally. ABDOMEN: Soft, nontender, nondistended. NEURO AND PSYCH: Alert and oriented to person, place and time. Normal affect. MEDICATIONS: Reviewed. LABORATORY DATA: Reviewed. IMAGING DATA: Reviewed. TELEMETRY DATA: Reviewed, shows normal sinus rhythm with occasional bradycardia. ASSESSMENT AND PLAN 1. Paroxysmal atrial fibrillation with rapid ventricular response. Currently in sinus rhythm. 2. Elevated creatine kinase and creatine kinase myocardial band. Suspect rhabdomyolysis. 3. Right lower extremity pain, likely musculoskeletal. 4. Hypertension. 5. Hypothyroidism. 6. Enterococcus and pseudomonas urinary tract infection. RECOMMENDATIONS: Continue current cardiac medications. Nuclear stress test showed no evidence of ischemia. However, she did have significant ST depressions with atrial fibrillation. Will discuss cardiac catheterization as an outpatient depending on her recovery from acute illness. The patient is to follow up with Dr. Cartwright in 2 weeks after she is discharged from rehab. Continue her anticoagulation with apixaban 5 mg b.i.d. for atrial fibrillation. Thank you for this consult. We will continue to follow. Job#: [id number]
[2017-12-01] MEDS ORDERED: TRAMADOL/APAP 37.5MG-325MG TAB PO PRN (13:45)
[2017-12-01] MEDS: TEMAZEPAM 15 MG CAP PO PRN (22:22)
[2017-12-02] VITALS (8 sets, daily range): BP systolic 119–159; BP diastolic 58–76
[2017-12-02] MEDS: PIPER-TAZ 3.375 GM 50 ML IV SCH ×4 (05:30→23:44)
[2017-12-02] MEDS: LEVOTHYROXINE SODIUM 75 MCG TAB PO SCH (05:30)
[2017-12-02 06:41] LABS: BASOPHILS # (AUTO) 0.1 (0.0-0.1); BASOPHILS % 0.6 % (0.0-1.0); EOSINOPHILS # (AUTO) 0.2 (0.0-0.4); EOSINOPHILS % 3.1 % (0.0-6.0); HEMATOCRIT 36.4 % (34.2-44.1); HEMOGLOBIN 12.2 g/dL (12.0-16.0); LYMPHOCYTES # (AUTO) 2.7 (1.0-3.2); LYMPHOCYTES % 34.8 % (18.0-39.1); MEAN CORPUSCULAR HEMOGLOBIN 30.2 pg (28-32); MEAN CORPUSCULAR HGB CONC 33.5 g/dL (31-35); MEAN CORPUSCULAR VOLUME 90.1 fL (81-99); MONOCYTES # (AUTO) 0.7 (0.2-0.8); MONOCYTES % 8.9 % (4.4-11.3); NEUTROPHILS # (AUTO) 4.1 (2.1-6.9); NEUTROPHILS % 52.3 % (38.7-80.0); PLATELET COUNT 227 x10e3/uL (140-360); RED BLOOD COUNT 4.04 x10e6/uL (3.6-5.1); RED CELL DISTRIBUTION WIDTH 13.7 % (11.7-14.4)
[2017-12-02 06:49] LABS: ANION GAP 13.7 mmol/L (8-16); CALCIUM 8.8 mg/dL (8.4-10.2); CREATININE, SERUM 0.92 mg/dL (0.57-1.11)
[2017-12-02 07:05] LABS: POTASSIUM 2.7 mmol/L (3.5-5.1)
[2017-12-02] MEDS ORDERED: POTASSIUM CHLORIDE 20 MEQ TAB CR PO STA (07:30)
[2017-12-02] MEDS: ASPIRIN 81 MG ENTERIC COATED PO SCH (08:18)
[2017-12-02] MEDS: LINEZOLID 600 MG/D5W 300ML 300 ML IV SCH ×2 (08:18→21:19)
[2017-12-02] MEDS: METOPROLOL TARTRATE 25 MG TAB PO SCH ×2 (08:19→16:09)
[2017-12-02] MEDS: AMIODARONE HCL 200 MG TAB PO SCH (08:19)
[2017-12-02] MEDS: APIXAB 2.5 MG TABLET PO SCH ×2 (08:19→16:09)
[2017-12-02] MEDS: CARBIDOPA/LEVODOPA 25/100 TAB PO SCH ×3 (08:19→21:00)
[2017-12-02] MEDS ORDERED: POTASSIUM CHLORIDE 20 MEQ TAB CR PO NR ×3 (12:46→15:00)
[2017-12-02] MEDS: DIPHENOXYLATE/ATROPINE TAB PO PRN (19:07)
--- NOTE | 2017-12-02 21:55 | Progress Note ---
DATE: December 02, 2017 CARDIOLOGY PROGRESS NOTE SUBJECTIVE: No major events overnight. Awaiting for rehab placement likely tomorrow. OBJECTIVE VITAL SIGNS: Temperature 96.1, pulse 59, respiratory rate 18, blood pressure 122/58, satting 97% on room air. GENERAL: Elderly white female, in no acute distress. CARDIOVASCULAR: Regular rate and rhythm. No murmurs, rubs or gallops. LUNGS: Clear to auscultation bilaterally. ABDOMEN: Soft, nontender, nondistended. NEURO AND PSYCH: Alert and oriented to person, place and time. Normal affect. MEDICATIONS: Reviewed. LABORATORY DATA: Reviewed. IMAGING DATA: Reviewed. TELEMETRY DATA: Reviewed, which shows normal sinus rhythm with sinus bradycardia. ASSESSMENT: 1. Paroxysmal atrial fibrillation with rapid ventricular response, currently in sinus rhythm. 2. Elevated CK and CK-MB, suspected rhabdomyolysis. 3. Right lower extremity pain, likely musculoskeletal. 4. Hypertension. 5. Hypothyroidism. 6. Enterococcus and pseudomonas urinary tract infections. RECOMMENDATIONS: Continue current cardiac medications. Nuclear stress test earlier this admission showed no evidence of ischemia. However, she did have significant ST depressions with atrial fibrillation. We will discuss outpatient cardiac catheterization with her when she follows up in clinic after rehab. Continue anticoagulation with apixaban for atrial fibrillation. Thank you for this consult. We will continue to follow. Job#: [id number] KELSIE
[2017-12-02] MEDS: TEMAZEPAM 15 MG CAP PO PRN (22:26)
[2017-12-03 00:14] VITALS: BP 144/64
[2017-12-03 05:24] VITALS: BP 140/65
[2017-12-03] MEDS: PIPER-TAZ 3.375 GM 50 ML IV SCH ×3 (05:26→18:00)
[2017-12-03] MEDS: LEVOTHYROXINE SODIUM 75 MCG TAB PO SCH (05:26)
[2017-12-03 07:46] VITALS: BP 127/60
[2017-12-03 08:38] LABS: ANION GAP 13.2 mmol/L (8-16); CALCIUM 8.7 mg/dL (8.4-10.2); CREATININE, SERUM 0.93 mg/dL (0.57-1.11); POTASSIUM 3.2 mmol/L (3.5-5.1)
[2017-12-03] MEDS: CARBIDOPA/LEVODOPA 25/100 TAB PO SCH ×3 (09:00→21:00)
[2017-12-03] MEDS: AMIODARONE HCL 200 MG TAB PO SCH (09:00)
[2017-12-03] MEDS: LINEZOLID 600 MG/D5W 300ML 300 ML IV SCH ×2 (09:00→21:56)
[2017-12-03] MEDS: ASPIRIN 81 MG ENTERIC COATED PO SCH (09:00)
[2017-12-03] MEDS: METOPROLOL TARTRATE 25 MG TAB PO SCH ×2 (09:00→17:00)
[2017-12-03 12:03] VITALS: BP 124/60
[2017-12-03] MEDS: DIPHENOXYLATE/ATROPINE TAB PO PRN (13:54)
[2017-12-03 15:48] VITALS: BP 121/60
--- NOTE | 2017-12-03 16:02 | Progress Note ---
DATE: December 03, 2017 CARDIOLOGY PROGRESS NOTE SUBJECTIVE: Patient denies chest pain or shortness of breath. She is complaining of diarrhea. OBJECTIVE: VITAL SIGNS: Temperature 97 degrees, pulse 63, respiratory rate 16, blood pressure 127/60, oxygen saturation 98% on room air. GENERAL: Awake, alert, in no acute distress. LUNGS: Clear to auscultation bilaterally. No wheezes or crackles. CARDIOVASCULAR: Normal rate, regular rhythm. No murmurs. Normal S1, S2. ABDOMEN: Soft, nontender, nondistended. EXTREMITIES: No edema. CARDIAC MEDICATIONS: 1. Aspirin 81 mg p.o. daily. 2. Metoprolol tartrate 25 p.o. b.i.d. 3. Amiodarone 200 mg p.o. daily. 4. Levothyroxine 75 mcg p.o. daily. LABORATORIES: Sodium 141, potassium 3.2, chloride 105, CO2 26, BUN 9, creatinine 0.93. Telemetry: Normal sinus rhythm. IMPRESSION: 1. Paroxysmal atrial fibrillation with rapid ventricular response. Currently in sinus rhythm. 2. Elevated creatine kinase and isoenzyme of creatine kinase with muscle and brain subunits. Suspect rhabdomyolysis. 3. Right lower extremity pain. Likely musculoskeletal. 4. Hypertension. 5. Hypothyroidism. 6. Enterococcus and pseudomonas urinary tract infection. RECOMMENDATIONS: Continue current cardiac medication. Nuclear stress test during admission without evidence of ischemia. However, she did have significant ST depressions with atrial fibrillation. We will discuss outpatient cardiac catheterization after she recovers from her acute illness. Please have her follow up with Dr. Cartwright in 2 week. Thank you for this consult. We will continue to follow. Job#: [id number] [place]
[2017-12-03 20:05] VITALS: BP 135/65
[2017-12-03] MEDS: TEMAZEPAM 15 MG CAP PO PRN (21:56)
[2017-12-04] VITALS (7 sets, daily range): BP systolic 120–147; BP diastolic 58–67
[2017-12-04] MEDS ORDERED: SODIUM CHLORIDE 0.9% 50ML 50 ML ONE ×3 (00:42→23:18)
[2017-12-04] MEDS: PIPER-TAZ 3.375 GM 50 ML IV SCH ×5 (00:45→23:33)
[2017-12-04] MEDS: LEVOTHYROXINE SODIUM 75 MCG TAB PO SCH (06:03)
[2017-12-04] MEDS: ASPIRIN 81 MG ENTERIC COATED PO SCH (08:30)
[2017-12-04] MEDS: AMIODARONE HCL 200 MG TAB PO SCH (08:30)
[2017-12-04] MEDS: METOPROLOL TARTRATE 25 MG TAB PO SCH ×2 (08:30→17:00)
[2017-12-04] MEDS: LINEZOLID 600 MG/D5W 300ML 300 ML IV SCH ×2 (08:30→21:20)
[2017-12-04] MEDS: CARBIDOPA/LEVODOPA 25/100 TAB PO SCH ×2 (09:00→15:00)
[2017-12-04] MEDS: TEMAZEPAM 15 MG CAP PO PRN (21:09)
[2017-12-05] VITALS: BP 125/60
[2017-12-05 04:00] VITALS: BP 120/57
[2017-12-05] MEDS ORDERED: SODIUM CHLORIDE 0.9% 50ML 50 ML ONE (05:36)
[2017-12-05] MEDS: PIPER-TAZ 3.375 GM 50 ML IV SCH ×2 (05:52→12:13)
[2017-12-05] MEDS: LEVOTHYROXINE SODIUM 75 MCG TAB PO SCH (05:52)
[2017-12-05 06:18] LABS: CALCIUM 9.4 mg/dL (8.4-10.2); CREATININE, SERUM 0.94 mg/dL (0.57-1.11)
[2017-12-05 07:27] VITALS: BP 141/66
[2017-12-05 07:30] VITALS: BP 141/66
[2017-12-05] MEDS: ASPIRIN 81 MG ENTERIC COATED PO SCH (09:22)
[2017-12-05] MEDS: LINEZOLID 600 MG/D5W 300ML 300 ML IV SCH (09:22)
[2017-12-05] MEDS: AMIODARONE HCL 200 MG TAB PO SCH (09:22)
[2017-12-05] MEDS: METOPROLOL TARTRATE 25 MG TAB PO SCH (09:23)
[2017-12-05] MEDS ORDERED: POTASSIUM CHLORIDE 10 MEQ TABCR PO NR ×3 (10:15→14:00)
--- NOTE | 2017-12-05 10:33 | Progress Note ---
DATE: December 05, 2017 CARDIOLOGY PROGRESS SUBJECTIVE: The patient denies chest pain or shortness of breath. OBJECTIVE VITALS: Temperature 97.5 degrees, pulse 57, respiratory rate 16, blood pressure 141/66, oxygen saturation 97% on room air. GENERAL: Awake, alert and in no acute distress. LUNGS: Clear to auscultation bilaterally. No wheezes or crackles. CARDIOVASCULAR: Normal rate. Regular rhythm. No murmur. Normal S1 and S2. ABDOMEN: Soft and nontender. EXTREMITIES: No edema. CARDIAC MEDICATIONS 1. Metoprolol tartrate 25 mg p.o. b.i.d. 2. Aspirin 81 mg p.o. daily. 3. Amiodarone 200 mg p.o. daily. 4. Levothyroxine 75 mcg p.o. daily. LABS: Sodium 144, potassium 3, chloride 106, CO2 26, BUN 10, creatinine 0.94. Telemetry is normal sinus rhythm. IMPRESSION 1. Paroxysmal atrial fibrillation with rapid ventricular response, currently sinus rhythm. 2. Elevated CK and CK-MB: Suspect rhabdomyolysis. 3. Right lower extremity pain, likely musculoskeletal. 4. Hypertension. 5. Hypothyroidism. 6. Enterococcus and pseudomonas urinary tract infection. RECOMMENDATIONS: Continue current cardiac medications. Resume Eliquis. Nuclear stress test was without evidence of ischemia. However, she did have significant ST-depression with atrial fibrillation. Will discuss outpatient cardiac catheterization after she recovers from her acute illness. Please have the patient follow up with Dr. Cartwright in 2 weeks after discharge. Thank you for this consult. We will continue to follow. Job#: [id number] [place]
[2017-12-05 11:20] VITALS: BP 121/58
[2017-12-05] MEDS: DIPHENOXYLATE/ATROPINE TAB PO PRN (12:45)
[2017-12-05 15:15] VITALS: BP 136/60
[2017-12-05] MEDS ORDERED: AMIODARONE HCL200 MG PO (15:59)
[2017-12-05] MEDS ORDERED: METOPROLOL TART25 MG PO (16:00)
[2017-12-05] MEDS ORDERED: CIPRO500 MG PO (16:01)
[2017-12-05] MEDS ORDERED: APIXABAN 5 MG TABLET PO SCH (17:00)
--- OUTSIDE RECORDS SUMMARY | 2017-12-13 08:15 | XMS REPORT | Clinical Summary ---
Author Author TIFFANY [facility] Address Unknown Phone Unavailable Care Team Providers Care Label Sewer Name Role Phone PCP Unavailable Allergies Not on File Current Medications Not on file Active Problems Not on file Social History Tobacco Use Types Packs/Day Years Used Date Never Assessed Sex Assigned at Date Recorded Not on file Last Filed Vital Signs Not on file Plan of Treatment Not on file Results Not on fileafter 11/23/2016
--- OUTSIDE RECORDS SUMMARY | 2017-12-13 08:15 | XMS REPORT | Clinical Summary ---
Author Author TIFFANY [facility] Address Unknown Phone Unavailable Care Team Providers Care Manufacturing Job Titles Name Role Phone PCP Unavailable Allergies Not on File Current Medications Not on file Active Problems Not on file Social History Tobacco Use Types Packs/Day Years Used Date Never Assessed Sex Assigned at Date Recorded Not on file Last Filed Vital Signs Not on file Plan of Treatment Not on file Results Not on fileafter 11/23/2016
--- OUTSIDE RECORDS SUMMARY | 2017-12-13 08:15 | XMS REPORT ---
Author Author [facility] Address Unknown Phone Unavailable Care Team Providers Care Manager Etl Name Role Phone TRAY SCHAFFER Unavailable Unavailable Problems This patient has no known problems. Allergies, Adverse Reactions, Alerts This patient has no known allergies or adverse reactions. Medications This patient has no known medications. Results Test Description Test Time Test Comments Text Results Atomic Results Result Comments MRI SPINE CERVICAL WO 2017-11-30 10:27:00 [place] [id number] [place] [address] Patient Name: YESSICA HASY MR #: [id number] : 1945 Age/Sex: 72/F Req #: [id number] [facility] Physician: TRAY SCHAFFER MD Ordered by : MIGUELITO MAHARAJ MD Report #: [id number] Location: MED/SURG3 Room/Bed: [facility] Procedure: [id number] MRI/MRI SPINE CERVICAL WO Exam Date: 11/28/17 Exam Time: 0830 REPORT STATUS: Signed History: 72-year-old female with right hip, bilateral lower extremity pain with concern for cervical myelopathy. Comparison studies: None Technique: Sagittal T1, T2 and IR, axial T2 and axial gradient echo Intravenous contrast: None Findings: Alignment: Normal lordosis. No scoliosis. Cervicomedullary junction: Retro-dental pannus measuring 3.4 mm, with associated mild narrowing of the foramina magnum. Predental pannus measuring 8 mm. Left lateral dental panus measuring 8 mm. Soft tissues: No T2 hyperintense inflammatory changes. Spinal cord: Normal in size and signal from the foramen magnum through T6 Vertebrae: No fractures, infection or neoplasm. Degenerative changes: C2-C3: Symmetric bulging disc with 1.4 mm of posterior mass effect. Spinal canal widely patent. Bilateral foramina widely patent. C3-C4: Symmetric bulging disc with 2.4 mm of posterior mass effect, that slightly indents the spinal cord, with minimal cord signal change, most notable on STIR. Mild narrowing of the spinal canal. Bilateral foraminal widely patent. C4-C5: Mild loss of disc height. Symmetric bulging disc with 1.9 mm of posterior mass effect. Discs slightly abuts the adjacent spinal cord. Thickening of ligamentum flavum. Mild to moderate narrowing of the spinal canal. Bilateral foraminal widely patent. Minimal grade 1 retrolisthesis. C5-C6: Symmetric bulging disc with 2.3 mm of posterior mass effect. Thickening of the ligamentum flavum. Mild to moderate narrowing of the spinal canal. Mild to moderate narrowing of the left foramen. C6-C7: Symmetric bulging disc with 1 mm posterior mass effect. Spinal canal widely patent. Bilateral foraminal widely patent. C7-T1: No abnormalities. IMPRESSION: 1. Degenerative discs, greatest at C3-C4 that slightly abuts the cord with subtle cord signal change. 2. Soft tissue or ligamentous thickening adjacent to the dens which narrows the foramen magnum. Correlate clinically for the possibility of rheumatoid arthritis. Signed by: Dr. Kalen Reid M.D. on 11/30/2017 11:42 AM Dictated By: KALEN REID MD 1142 Transcribed By: RICHA on 1142 COPY TO: MIGUELITO MAHARAJ MD MRI SPINE LUMBAR WO 2017-11-26 13:13:00 [place] [address] Patient Name: YESSICA HAYS MR #: [id number] : 1945 Age/Sex: 72/F Req #: [id number] Adm Physician: TRAY SCHAFFER MD Ordered by : PARMINDER CORRALES MD Report #: [id number] Location: ICU Room/Bed: ICU 1961 Procedure: [id number] MRI/MRI SPINE LUMBAR WO Exam Date : Exam Time: REPORT STATUS: Signed EXAMINATION: MRI of the lumbar spine without contrast HISTORY: Low back pain radiating to right lower extremity COMPARISON: None. TECHNIQUE: Sagittal T1, T2, STIR; axial T2 and proton density. FINDINGS: It is assumed that there are 5 lumbar vertebrae. Curvature/Alignment: Normal lordosis. Vertebrae: No evidence of recent fracture, infection, or neoplasm. Chronic endplate degenerative changes at L2-L3. Conus: Normal , terminating at T12-L1 Cauda equina: Unremarkable. Lower thoracic : Unremarkable. Paraspinal soft tissues: Tiny T2 hyperintense focus in the left kidney may correspond to a cyst. Degenerative changes: L1-L2: Mild symmetric disc bulge. Approximately 5 mm AP 1.3 cm superior to inferior central and slightly left paracentral inferiorly migrated disc extrusion which flattens the ventral thecal sac, and no definite nerve compression. L2-L3: Mild symmetric disc bulge and facet arthrosis. Minimal retrolisthesis. No significant canal or foraminal stenosis. L3-L4: Mild symmetric disc bulge, ligamenta flava thickening and facet arthrosis. Minimal canal and mild left foraminal stenoses. L4-L5: Mild symmetric disc bulge, 2 mm AP diameter central disc protrusion with underlying annular fissuring, ligamenta flava thickening and facet arthrosis. Moderately severe spinal canal stenosis. Moderate right foraminal narrowing. L5-S1: Minimal symmetric disc bulge and moderate facet arthrosis. No significant canal or foraminal stenosis. IMPRESSION: 1. Moderately severe degenerative spinal canal and right foraminal stenosis at L4 -L5. 2. Central inferiorly migrated disc extrusion at L1-L2 without evidence of nerve root compression. 3. Minimal degenerative retrolisthesis at L2- L3. Signed by: Dr. Gaye Maravilla M.D. on 11/26/2017 1:20 PM Dictated By: GAYE MARAVILLA MD 19 Transcribed By: RICHA on 11/26/17 1320 COPY TO: PARMINDER CORRALES MD MRI HIP RIGHT WO 2017-11-26 12:01:00 [place] [address] Patient Name: YESSICA HAYS MR #: [id number] : 1945 Age/Sex: 72/F Req #: [id number] Adm Physician: TRAY SCHAFFER MD Ordered by : PARMINDER CORRALES MD Report #: [id number] Location: ICU Room/Bed: ICU [facility] Procedure: [id number] MRI/MRI HIP RIGHT WO Exam Date: Exam Time: REPORT STATUS: Signed TECHNIQUE : Magnetic resonance imaging of the RIGHT HIP was performed WITHOUT injected contrast. HISTORY: Right hip pain COMPARISON: None available. FINDINGS: Bone: No focal or infiltrative bone marrow replacing abnormality. No osteonecrosis or acute fracture. Femoroacetabular Joint: Acetabular labrum: Fraying of the superior labrum. No detached tear. Articular Cartilage: Partial thickness cartilage loss without focal defect. Muscle and tendons: Gluteal tendons are intact. Distal psoas tendon edema. Axial image 20. Hamstring origins intact. Soft tissues: Otherwise unremarkable. IMPRESSION: Minimal degenerative arthrosis of the right hip. Possible right iliopsoas tendon tenosynovitis Signed by: Dr. Jeronimo Escalera M.D. on 11/26/2017 12:05 PM Dictated By: JERONIMO ESCALERA MD 04 COPY TO: PARMINDER CORRALES MD MRI BRAIN WO 2017-11-24 11:54:00 [place] [id number] [place] [address] Patient Name: YESSICA HAYS MR #: [id number] : 1945 Age/Sex: 72/F Req #: [id number] Adm Physician: TRAY SCHAFFER MD Ordered by: REY HENLEY MD Report #: [id number] Location: [facility] Room/Bed: [place] [address] Procedure: [id number] MRI/MRI BRAIN WO Exam Date: Exam Time: REPORT STATUS: Signed Examination : Brain MRI without Contrast History: 72-year-old female with confusion and slurred speech. Comparison studies: Head CT performed earlier the same day. Technique: Precontrast: Hi resolution Sag T1 with coronal and axial reformats. Axial DWI, T2, T2 flair, gradient echo or SWI Intravenous contrast: None. Findings: Structural lesions: No intra-or extra- axial masses. No hematomas. Atrophy: General: Symmetric and age appropriate. Focal: No disproportionate lobar, hippocampal, mesencephalic, pontine, or cerebellar atrophy. Recio matter: Cortex:No signal abnormalities. No encephalomalacia. Basal ganglia: No atrophy or signal abnormalities. Thalami: No signal abnormalities. Micro hemorrhages: None. White matter signal intensity: There are patchy and confluent areas of T2/FLAIR hyperintensity in the periventricular and subcortical white matter, nonspecific. . Subarachnoid spaces: No signal abnormalities. Ventricles: Normal in size and configuration. No hydrocephalus. Hippocampi, fornix and mammillary bodies: Normal in size and symmetric. Other: Skull: No bone marrow abnormalities. Vessels: Expected flow voids present in the major arteries and dural sinuses.. Sella: Normal in size. No intra-or suprasellar abnormalities. Cranio-cervical junction: No abnormalities. Patent foramen magnum. No Chiari one malformation. Paranasal sinuses: No T2 hyperintense mucosal thickening. IMPRESSION: 1. No acute intracranial abnormality, specifically, no acute infarct. 2. Mild chronic microvascular ischemic change. Signed by: Dr. Ana Cristina Arevalo M.D. on 11/24/2017 11:57 AM Dictated By: ANA CRISTINA CHRISTOPHER MD 1157 Transcribed By: RICHA on 11/24/17 1157 COPY TO: REY HENLEY MD CT BRAIN WO-[facility] 2017-11-24 06:47:00 [place] [address] Patient Name: YESSICA HAYS MR #: [id number] : 1945 Age/Sex: 72/F Req #: [id number] Adm Physician: Ordered by: MADELYN LANDRUM MD Report #: [id number] Location: [facility] Room/Bed: ___ Procedure: [id number] HOPD/CT BRAIN WO-[facility] Exam Date: 11/24/17 Exam Time: 0635 REPORT STATUS: Signed EXAMINATION: Head CT without contrast. HISTORY:Confusion and slurred speech. COMPARISON:None. TECHNIQUE: Multidetector axial images were obtained from the foramen magnum to the vertex without contrast. The images were reconstructed using brain and bone algorithms. Thin section brain images were reformatted into coronal and sagittal planes. Dose modulation, iterative reconstruction , and/or weight based adjustment of the mA/kV was utilized to reduce the radiation dose to as low as reasonably achievable. Intravenous contrast: None IMAGE QUALITY: Acceptable. FINDINGS: Skull/scalp: No lytic or blastic. lesions. No surgical changes. Parenchyma: Nonspecific few, scattered supratentorial white matter patchy hypodensity are likely related to small vessel ischemic changes. No acute hemorrhage, mass or acute major vascular territorial infarct. Arteries: No density suggestive of thrombosis. Dural sinuses: No abnormal density suggestive of thrombosis. Ventricles: No hydrocephalus or displacement. Extra- axial spaces: No abnormal density. Brain volume: Generalized age-related cerebral volume loss. Craniocervical junction: No mass, Chiari malformation, or basilar invagination. Sella: No mass. Paranasal/ mastoid sinuses: Imaged portions unremarkable. IMPRESSION: No acute intracranial abnormality. Mild supratentorial white matter microvascular ischemic changes. Generalized age-related cerebral volume loss. Signed by: Dr. Jessica Smith M.D. on 11/24/2017 6:51 AM Dictated By: JESSICA SMITH MD 0 Transcribed By: RICHA on 11/24/17650 COPY TO: MADELYN LANDRUM MD
--- OUTSIDE RECORDS SUMMARY | 2017-12-13 08:15 | XMS REPORT | Clinical Summary ---
Author Author [facility] Address Unknown Phone Unavailable Care Team Providers Care Production Weigher Name Role Phone Joss Corcoran DO PCP Allergies Active Allergy Reactions Severity Noted Date Comments Codeine Other (See Comments) 05/22/2016 Erythromycin GI Intolerance 05/22/2016 Oxycodone Rash Low 05/22/2016 Nlx-Lgznvzygw-Cfn Current Medications Prescription Sig. Disp. Refills Start End Date Status Date levothyroxine (SYNTHROID, Take 50 mcg by mouth 05/23/19 Active LEVOXYL) 50 mcg tablet daily. 17 diltiazem XR (DILACOR XR) 05/01/19 Active 120 MG 24 hr capsule 17 SUPREP BOWEL PREP KIT 1 kit 1 Bottle 0 05/23/19 Active 17.5-3.13-1.6 gram recon 17 solnIndications: Hemorrhoids, unspecified hemorrhoid type, Proctitis, Diverticulosis of intestine without bleeding, unspecified intestinal tract location, Family history of colon cancer, Slow transit constipation, Hematochezia Active Problems Problem Noted Date Slow transit constipation 05/22/2016 Hematochezia 05/22/2016 Proctitis Hemorrhoids Diverticulosis Family history of colon cancer Family History Medical History Relation Name Comments Colon cancer Mother Relation Name Status Comments Father Mother Social History Tobacco Use Types Packs/Day Years Used Date Never Smoker Alcohol Use Drinks/Week oz/Week Comments No Sex Assigned at Date Recorded Not on file Last Filed Vital Signs Not on file Plan of Treatment Health Maintenance Due Date Last Done Comments BREAST CANCER SCREENING 10/26/1995 COLON CANCER SCREENING 10/26/1995 SHINGRIX VACCINE (#1) 10/26/1995 ZOSTER VACCINE 2005 PNEUMOCOCCAL 2010 POLYSACCHARIDE VACCINE AGE 65 AND OVER PNEUMOCOCCAL-13 2010 INFLUENZA VACCINE 10/10/2017 Results Not on fileafter 11/23/2016 Insurance Payer Benefit Subscriber ID Type Phone Address Plan / Group HUMANA MEDICARE HUMANA xxxxxxxxx PPO MEDICARE PPO/PFFS/E RS [facility]
--- OUTSIDE RECORDS SUMMARY | 2017-12-13 08:15 | XMS REPORT | Clinical Summary ---
Author Author [employer] [facility] [employer] Address Unknown Phone Unavailable Care Team Providers Care Silk Screen Printer Machine Name Role Phone Joss Corcoran DO PCP Allergies Active Allergy Reactions Severity Noted Date Comments Codeine Other (See Comments) 05/22/2016 Erythromycin GI Intolerance 05/22/2016 Oxycodone Rash Low 05/22/2016 Hch-Omgvknatz-Wmm Current Medications Prescription Sig. Disp. Refills Start [...] MEDICARE HUMANA xxxxxxxxx PPO MEDICARE PPO/PFFS/E RS [facility]
== END 2017-12-05 16:33 | disposition home or self-care (01) | DRG 557 ==
LOC: FSED 05:29 → ERHOLD 07:17 → IMCU 08:17 → MED/SURG2 11-25 06:22 → ICU 11-25 23:58 → OBSVTOIN 11-27 13:15 → MED/SURG3 11-27 13:16
DX: M62.82 Rhabdomyolysis (principal); A41.9 Sepsis, unspecified organism; N39.0 Urinary tract infection, site not specified; G45.9 Transient cerebral ischemic attack, unspecified; M50.00 Cervical disc disorder with myelopathy, unspecified cervical region; I48.0 Paroxysmal atrial fibrillation; G20 Parkinson's disease; I10 Essential (primary) hypertension; E03.9 Hypothyroidism, unspecified; G47.00 Insomnia, unspecified; B95.2 Enterococcus as the cause of diseases classified elsewhere; B96.5 Pseudomonas (aeruginosa) (mallei) (pseudomallei) as the cause of diseases classified elsewhere; Z88.6 Allergy status to analgesic agent; Z88.5 Allergy status to narcotic agent; Z88.1 Allergy status to other antibiotic agents; M48.061 Spinal stenosis, lumbar region without neurogenic claudication; M51.16 Intervertebral disc disorders with radiculopathy, lumbar region; E87.6 Hypokalemia; R53.81 Other malaise; R00.1 Bradycardia, unspecified; T46.2X5A Adverse effect of other antidysrhythmic drugs, initial encounter; Y92.239 Unspecified place in hospital as the place of occurrence of the external cause
CPT/HCPCS: 36415; 70450; 70551; 72141; 72148; 78452; 80048; 80053; 80061; 81001; 81003; 82550; 82553; 84439; 84443; 84484; 85025; 85610; 87086; 87186; 87493; 93005; 93017; 93041; 93306; 93880; 93925; 96361; 96367; 97139; 99284; A9502; G0378; J0360; J1160; J1885; J2020; J2405; J2543; J7030

== ENCOUNTER 2018-01-01 06:36 | Observation (INO) | payer MEDICARE ==
[2017-12-31 10:20] LABS: BASOPHILS # (AUTO) 0.1 (0.0-0.1); BASOPHILS % 0.8 % (0.0-1.0); EOSINOPHILS # (AUTO) 0.1 (0.0-0.4); EOSINOPHILS % 1.7 % (0.0-6.0); HEMATOCRIT 40.9 % (34.2-44.1); HEMOGLOBIN 13.4 g/dL (12.0-16.0); LYMPHOCYTES # (AUTO) 2.9 (1.0-3.2); LYMPHOCYTES % 38.7 % (18.0-39.1); MEAN CORPUSCULAR HEMOGLOBIN 30.2 pg (28-32); MEAN CORPUSCULAR HGB CONC 32.8 g/dL (31-35); MEAN CORPUSCULAR VOLUME 92.3 fL (81-99); MONOCYTES # (AUTO) 0.6 (0.2-0.8); MONOCYTES % 7.7 % (4.4-11.3); NEUTROPHILS # (AUTO) 3.8 (2.1-6.9); NEUTROPHILS % 50.8 % (38.7-80.0); PLATELET COUNT 262 x10e3/uL (140-360); RED BLOOD COUNT 4.43 x10e6/uL (3.6-5.1); RED CELL DISTRIBUTION WIDTH 14.4 % (11.7-14.4)
[2017-12-31 11:16] LABS: ALBUMIN 4.1 g/dL (3.5-5.0); ALBUMIN/GLOBULIN RATIO 1.2 (0.8-2.0); ANION GAP 16.1 mmol/L (8-16); CALCIUM 9.9 mg/dL (8.4-10.2); CHOL/HDL RATIO 3.5 (3.0-3.6); CREATININE, SERUM 1.21 mg/dL (0.57-1.11); POTASSIUM 5.1 mmol/L (3.5-5.1)
[~2018-01-01] VITALS: Ht 152.4 cm; Wt 56.3 kg
[2018-01-01] VITALS (13 sets, daily range): BP systolic 109–138; BP diastolic 56–71
[~2018-01-01 06:36] MED LIST changes: +AMIODARONE HCL200 MG PO; +ASPIR 8181 MG PO; +BYSTOLIC2.5 MG PO; +CIPRO500 MG PO; +LEVOTHYROXINE75 MCG PO; +METOPROLOL TART25 MG PO; +XARELTO10 MG PO
--- OUTSIDE RECORDS SUMMARY | 2018-01-01 06:38 | XMS REPORT | Clinical Summary ---
Author Author [facility] Address Unknown Phone Unavailable Care Team Providers Care Supervisor Press Room Name Role Phone PCP Unavailable Allergies Not on File Current Medications Not on file Active Problems Not on file Social History Tobacco Use Types Packs/Day Years Used Date Never Assessed Sex Assigned at Date Recorded Not on file Last Filed Vital Signs Not on file Plan of Treatment Not on file Results Not on fileafter 12/31/2016
--- OUTSIDE RECORDS SUMMARY | 2018-01-01 06:38 | XMS REPORT | Clinical Summary ---
Author Author [facility] Address Unknown Phone Unavailable Care Team Providers Care Food Safety Scientist Name Role Phone Carter Corcoran DO PCP Allergies Active Allergy Reactions Severity Noted Date Comments Codeine Other (See Comments) 05/22/2016 Erythromycin GI Intolerance 05/22/2016 Oxycodone Rash Low 05/22/2016 Kfg-Xwwojfqrw-Osc Current Medications Prescription Sig. Disp. Refills Start [...] INFLUENZA VACCINE 10/10/2017 Results Not on fileafter 12/31/2016 Insurance Payer Benefit Subscriber ID Type Phone Address Plan / Group HUMANA MEDICARE HUMANA xxxxxxxxx PPO MEDICARE PPO/PFFS/E RS [facility]
[2018-01-01] MEDS ORDERED: FENTANYL CITRATE/PF 100MCG/2 ML INJ ONE (08:40)
[2018-01-01] MEDS ORDERED: SODIUM CHLORIDE 0.9% 1000ML 1,000 ML ONE (08:40)
[2018-01-01] MEDS ORDERED: MIDAZOLAM HCL 2 MG/2 ML VIAL ONE (08:40)
[2018-01-01] MEDS ORDERED: LIDOCAINE HCL 1% LOCAL INJ 20 ML VIAL ONE (08:51)
[2018-01-01] MEDS ORDERED: IOPAMIDOL 370 MG/ML 200 ML INFUS..BTL INJ ONE ×2 (08:51→09:00)
[2018-01-01] MEDS ORDERED: HEPARIN SOD/SOD CHLORIDE 2,000 ML ONE (08:51)
[2018-01-01] MEDS ORDERED: HEPARIN SOD (PORCINE) 1000 UNIT/ML 30ML ONE (08:53)
[2018-01-01] MEDS ORDERED: NITROGLYCERIN/D5W 200 MCG/ML 250 ML ONE (08:54)
[2018-01-01] MEDS ORDERED: PRASUGREL 10 MG TAB ONE (09:03)
[2018-01-01] MEDS ORDERED: ASPIRIN 325 MG TAB ONE (09:04)
--- NOTE | 2018-01-01 10:54 | Operative Report ---
DATE OF PROCEDURE: January 01, 2018 INDICATIONS: Coronary artery disease and ufi-QP-hzzaont elevation myocardial infarction. PROCEDURES PERFORMED 1. Left heart catheterization. 2. Selective coronary angiography. 3. Drug-eluting stent placement to the distal left anterior descending artery. 4. Deployment of right groin Perclose closure device. COMPLICATIONS: None. RECOMMENDATIONS: Triple anticoagulant therapy for 3 months followed by aspirin and Xarelto lifelong. BLOOD LOSS: 5 mL. Access obtained in the right femoral artery. A 6-Malay sheath was placed. Diagnostic coronary angiogram revealed patent left main. Left anterior descending artery proximal with 20% to 30% stenosis. Distal LAD had 90% stenosis. Circumflex and right coronary artery had mild disease. A decision was made to intervene on the left anterior descending artery. The patient received 5000 intra-arterial heparin, intravenous heparin and oral Effient for anticoagulation. The left main was cannulated using a 6-Malay XB 3.5 guiding catheter. A short wire was advanced across the lesion for support. Primary stent 2 x 12 mm deployed at 14 atmospheres. Excellent end result less than 10% residual stenosis. DUKE-3 flow. No complications. Guide and wire were removed. Right groin repaired use Perclose. Patient discharged home same day. Job#: [id number] LU[employer]
--- OUTSIDE RECORDS SUMMARY | 2018-01-01 11:36 | XMS REPORT | Clinical Summary ---
Author Author [facility] Address Unknown Phone Unavailable Care Team Providers Care Regional Engineer Name Role Phone PCP Unavailable Allergies Not on File Current Medications Not on file Active Problems Not on file Social History Tobacco Use Types Packs/Day Years Used Date Never Assessed Sex Assigned at Date Recorded Not on file Last Filed Vital Signs Not on file Plan of Treatment Not on file Results Not on fileafter 12/31/2016
--- OUTSIDE RECORDS SUMMARY | 2018-01-01 11:36 | XMS REPORT | Clinical Summary ---
Author Author [facility] Address Unknown Phone Unavailable Care Team Providers Care House Cleaner Name Role Phone Carter Corcoran DO PCP Allergies Active Allergy Reactions Severity Noted Date Comments Codeine Other (See Comments) 05/22/2016 Erythromycin GI Intolerance 05/22/2016 Oxycodone Rash Low 05/22/2016 Lxx-Hjrbxkllf-Oxb Current Medications Prescription Sig. Disp. Refills Start [...] MEDICARE HUMANA xxxxxxxxx PPO MEDICARE PPO/PFFS/E RS [facility]
== END 2018-01-01 14:38 | disposition home or self-care (01) ==
LOC: CATH LAB 06:36 → CATH LAB V 11:22 → IMCU 12:47
PROVIDERS: ADMIT Internal Medicine Interventional Cardiology; ATTEND Internal Medicine Interventional Cardiology
DX: I25.10 Atherosclerotic heart disease of native coronary artery without angina pectoris (principal); I21.4 Non-ST elevation (NSTEMI) myocardial infarction; Z88.1 Allergy status to other antibiotic agents; Z88.5 Allergy status to narcotic agent; I48.91 Unspecified atrial fibrillation; Z82.3 Family history of stroke; Z83.3 Family history of diabetes mellitus; I10 Essential (primary) hypertension; E07.9 Disorder of thyroid, unspecified; Z01.812 Encounter for preprocedural laboratory examination
CPT/HCPCS: 93454; C9600; 36415; 80053; 80061; 85025; 92928; C1769; G0378; J1644; J2001; J2250; J7030; Q9967

== ENCOUNTER 2018-09-20 14:26 | Emergency (ER) | payer MEDICARE ==
[~2018-09-20] VITALS: Ht 154.9 cm; Wt 54.0 kg
--- OUTSIDE RECORDS SUMMARY | 2018-09-20 14:29 | XMS REPORT | Clinical Summary ---
Author Author [facility] Address Unknown Phone Unavailable Care Team Providers Care Desktop Analyst Name Role Phone Carter Corcoran DO PCP Allergies Comments Active Allergy Reactions Severity Noted Date Codeine Other (See 05/22/2016 Comments) Erythromycin GI 05/22/2016 Intolerance Oxycodone Rash Low 05/22/2016 Qpo-Nduxwtlwy-Mcg Medications End Date Status Medication Sig Dispensed Refills Start Date Active levothyroxine (SYNTHROID, Take 50 mcg 0 LEVOXYL) 50 mcg tablet by mouth 7 daily. Active diltiazem XR (DILACOR XR) 0 120 MG 24 hr capsule 7 Active SUPREP BOWEL PREP KIT 1 kit 1 Bottle 0 17.5-3.13-1.6 gram recon 7 solnIndications: Hemorrhoids, unspecified hemorrhoid type, Proctitis, Diverticulosis of intestine without bleeding, unspecified intestinal tract location, Family history of colon cancer, Slow transit constipation, Hematochezia Active Problems Problem Noted Date Slow transit constipation 05/22/2016 Hematochezia 05/22/2016 Proctitis Hemorrhoids Diverticulosis Family history of colon cancer Family History Medical History Relation Name Comments Colon cancer Mother Relation Name Status Comments Father Mother Social History Date Tobacco Use Types Packs/Day Years Used Never Smoker Alcohol Use Drinks/Week oz/Week Comments No Sex Assigned at Date Recorded Not on file Industry Job Start Date Occupation Not on file Not on file Not on file Travel End Travel History Travel Start No recent travel history available. Last Filed Vital Signs Not on file Plan of Treatment Health Maintenance Due Date Last Done Comments BREAST CANCER SCREENING 10/26/1995 COLONOSCOPY SCREENING 10/26/1995 SHINGLES VACCINES (#1) 10/26/1995 65+ PNEUMOCOCCAL VACCINE 2010 (1 of 2 - PCV13) INFLUENZA VACCINE 10/10/2018 Results Not on fileafter 09/19/2017 Insurance Type Payer Benefit Subscriber ID Effective Phone Address Plan / Dates Group PPO HUMANA MEDICARE HUMANA xxxxxxxxx 2012-P MEDICARE resent PPO/PFFS/E RS [facility] Advance Directives Patient has advance care planning documents on file. For more information, clive e contact: Jama Sandy [address] [place] [address]
--- OUTSIDE RECORDS SUMMARY | 2018-09-20 14:30 | XMS REPORT | Clinical Summary ---
Author Author [facility] Address Unknown Phone Unavailable Care Team Providers Care Director Of User Experience Name Role Phone Sharpless PCP Allergies Not on File Medications Not on file Active Problems Not on file Social History Date Tobacco Use Types Packs/Day Years Used Never Assessed Sex Assigned at Date Recorded Not on file Industry Job Start Date Occupation Not on file Not on file Not on file Travel End Travel History Travel Start No recent travel history available. Last Filed Vital Signs Not on file Plan of Treatment Not on file Results Not on fileafter 09/19/2017 Insurance Payer Benefit Subscriber ID Type Phone Address Plan / Group HUMANA - MEDICARE MGD HUMANA xxxxxxxxx [facility] MEDICARE Contracted ADV
--- OUTSIDE RECORDS SUMMARY | 2018-09-20 14:30 | XMS REPORT | Continuity of Care Document ---
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 Phone [place] Information [employer] Unavailable Unavailable Problems Problem Status Onset Date Classification Date Reported Comments Source ACUTE ELIJAH GLAUCOMA Active 02/01/2013 [facility] HTN - Hypertension Resolved Problem 09/12/2018 [facility] Hypothyroid Resolved Problem 09/12/2018 [facility] Parkinsonism Active Problem 09/12/2018 [facility] Medications Medication Details Route Status Patient Instructions Ordering Provider Order Date Source AMIODarone 200 mg oral tablet 200 mg=1 tab, PO, Daily, 0 Refill(s) Active 04/15/2018 [facility] Aspirin 81 MG Enteric Coated Tablet 81 mg=1 tab, PO, Daily, # 90 tab, 3 Refill(s) Active 04/15/2018 [facility] metoprolol tartrate 25 mg oral tablet 25 mg=1 tab, PO, BID, 0 Refill(s) Active 04/15/2018 [facility] atorvastatin 20 mg oral tablet 20 mg=1 tab, PO, Daily, 0 Refill(s) Active 04/15/2018 [facility] rivaroxaban 20 MG Oral Tablet [Xarelto] 20 mg=1 tab, PO, QPM, # 30 tab, 3 Refill(s) Active 04/15/2018 [facility] Levothyroxine Sodium 0.175 MG Oral Tablet [Synthroid] 175 microgram=1 tab, PO, Daily, 0 Refill(s) Active 04/15/2018 [facility] Acetaminophen 325 MG Oral Capsule [Tylenol] 325 mg=1 cap, PO, TID, 0 Refill(s) Active 04/15/2018 [facility] clopidogrel 75 mg oral tablet 75 mg=1 tab, PO, Daily, 0 Refill(s) Active 04/15/2018 [facility] Aleve , As Needed Active 12/05/2017 [facility] Nebivolol Hcl (Bystolic) 2.5 Mg Tablet, Oral Daily Active 12/05/2017 [facility] Cyclobenzaprine Hcl (Flexeril) 10 Mg Tablet, 10 Mg Oral As Needed Active 11/24/2017 [facility] Levothyroxine Sodium (Synthroid) 137 Mcg Tablet, 137 Mcg Oral Daily Active 11/24/2017 [facility] Nebivolol Hcl (Bystolic) 10 Mg Tablet, 10 Mg Oral Daily Active 11/24/2017 [facility] fluorescein ophthalmic 1 mg test 1 appl, Route: Each Affected Eye, ONCE, Start date: 02/06/13 15:40:00, Stop date: 02/06/13 15:40:00 Inactive Bora 02/06/2013 [facility] proparacaine ophthalmic 0.5% solution 2 drp, Route: Each Affected Eye, ONCE, Start date: 02/06/13 15:40:00, Stop date: 02/06/13 15:40:00 Inactive Bora 02/06/2013 [facility] Amiodarone Hcl 200 Mg Tablet Daily Active [facility] Ciprofloxacin Hcl (Cipro) 500 Mg Tablet Twice A Day Active [facility] Levothyroxine Sodium 75 Mcg Tablet Daily Active [facility] Metoprolol Tartrate 25 Mg Tablet Twice A Day Active [facility] Allergies, Adverse Reactions, Alerts Substance Category Reaction Severity Reaction type Status Date Reported Comments Source oxycodone HCl RASH Intermediate Allergy to Substance Active 08/28/2011 [facility] Oxycodone Terephthalate RASH Intermediate Allergy to Substance Active 08/28/2011 [facility] Codeine VOMITING Intermediate Allergy to Substance Active 08/28/2011 [facility] ERTHROMYCIN VOMITING Intermediate Allergy to Substance Active 08/28/2011 [facility] codeine Assertion Drug allergy Active [facility] erythromycin Assertion Drug allergy Active [facility] Percodan Assertion Drug allergy Active [facility] Immunizations No Data Provided for This Section Results Order Name Results Value Reference Range Date Interpretation Comments Source Estimated glomerular filtration rate (GFR) determination Estimated glomerular filtration rate (GFR) determination 59 60 12/05/2017 [facility] Glucose measurement Glucose measurement 96 74 - 118 12/05/2017 [facility] Serum or plasma anion gap Serum or plasma anion gap 15.0 8 - 16 12/05/2017 [facility] Serum or plasma calcium measurement (mass/volume) Serum or plasma calcium measurement (mass/volume) 9.4 8.4 - 10.2 12/05/2017 [facility] Serum or plasma carbon dioxide, total measurement (moles/volume) Serum or plasma carbon dioxide, total measurement (moles/volume) 26 22 - 29 12/05/2017 [facility] Serum or plasma chloride measurement (moles/volume) Serum or plasma chloride measurement (moles/volume) 106 98 - 107 12/05/2017 [facility] Serum or plasma creatinine measurement (mass/volume) Serum or plasma creatinine measurement (mass/volume) 0.94 0.57 - 1.11 12/05/2017 [facility] Serum or plasma potassium measurement (moles/volume) Serum or plasma potassium measurement (moles/volume) 3.0 3.5 - 5.1 12/05/2017 [facility] Serum or plasma sodium measurement (moles/volume) Serum or plasma sodium measurement (moles/volume) 144 136 - 145 12/05/2017 [facility] Serum or plasma urea nitrogen measurement (mass/volume) Serum or plasma urea nitrogen measurement (mass/volume) 10 7 - 26 12/05/2017 [facility] Serum or plasma urea nitrogen/creatinine mass ratio Serum or plasma urea nitrogen/creatinine mass ratio 11 6 - 25 12/05/2017 [facility] Clostridium difficile A and B toxin assay Clostridium difficile A and B toxin assay NEGATIVE NEGATIVE 12/02/2017 [facility] Automated blood basophil count (count/volume) Automated blood basophil count (count/volume) 0.1 0.0 - 0.1 12/02/2017 [facility] Automated blood basophil count as percentage of total leukocytes Automated blood basophil count as percentage of total leukocytes 0.6 0.0 - 1.0 12/02/2017 [facility] Automated blood eosinophil count Automated blood eosinophil count 0.2 0.0 - 0.4 12/02/2017 [facility] Automated blood eosinophil count as percentage of total leukocytes Automated blood eosinophil count as percentage of total leukocytes 3.1 0.0 - 6.0 12/02/2017 [facility] Automated blood hematocrit (volume fraction) Automated blood hematocrit (volume fraction) 36.4 34.2 - 44.1 12/02/2017 [facility] Automated blood lymphocyte count as percentage ot total leukocytes Automated blood lymphocyte count as percentage ot total leukocytes 34.8 18.0 - 39.1 12/02/2017 [facility] Automated blood monocyte count as percentage of total leukocytes Automated blood monocyte count as percentage of total leukocytes 8.9 4.4 - 11.3 12/02/2017 [facility] Automated blood neutrophil count Automated blood neutrophil count 4.1 2.1 - 6.9 12/02/2017 [facility] Automated blood platelet count (count/volume) Automated blood platelet count (count/volume) 227 140 - 360 12/02/2017 [facility] Automated blood segmented neutrophil count as percentage of total leukocytes Automated blood segmented neutrophil count as percentage of total leukocytes 52.3 38.7 - 80.0 12/02/2017 [facility] Automated erythrocyte mean corpuscular hemoglobin (mass per erythrocyte) Automated erythrocyte mean corpuscular hemoglobin (mass per erythrocyte) 30.2 28 - 32 12/02/2017 [facility] Automated erythrocyte mean corpuscular hemoglobin concentration measurement (mass/volume) Automated erythrocyte mean corpuscular hemoglobin concentration measurement (mass/volume) 33.5 31 - 35 12/02/2017 [facility] Automated erythrocyte mean corpuscular volume Automated erythrocyte mean corpuscular volume 90.1 81 - 99 12/02/2017 [facility] Blood erythrocytes automated count (number/volume) Blood erythrocytes automated count (number/volume) 4.04 3.6 - 5.1 12/02/2017 [facility] Blood hemoglobin measurement (moles/volume) Blood hemoglobin measurement (moles/volume) 12.2 12.0 - 16.0 12/02/2017 [facility] Blood leukocytes automated count (number/volume) Blood leukocytes automated count (number/volume) 7.84 4.8 - 10.8 12/02/2017 [facility] Blood lymphocytes count (number/volume) Blood lymphocytes count (number/volume) 2.7 1.0 - 3.2 12/02/2017 [facility] Blood monocytes automated count (number/volume) Blood monocytes automated count (number/volume) 0.7 0.2 - 0.8 12/02/2017 [facility] Red Cell Distribution Width 13.7 11.7 - 14.4 12/02/2017 [facility] IM GRANULOCYTES % 0.3 0.0 - 1.0 12/02/2017 [facility] Absolute Immature Granulocyte (auto 0.02 0 - 0.1 12/02/2017 [facility] Automated urine sediment leukocyte count by microscopy (number/high power field) Automated urine sediment leukocyte count by microscopy (number/high power field) <10 0 - 5 11/28/2017 [facility] Bacteria detection in urine sediment by light microscopy Bacteria detection in urine sediment by light microscopy RARE NONE 11/28/2017 [facility] Epithelial cells detection in urine sediment by light microscopy Epithelial cells detection in urine sediment by light microscopy FEW NONE 11/28/2017 [facility] Erythrocytes detection in urine sediment by light microscopy Erythrocytes detection in urine sediment by light microscopy <20 0 - 5 11/28/2017 [facility] Specific gravity of Urine by Test strip Specific gravity of Urine by Test strip 1.005 1.010 - 1.025 11/28/2017 [facility] Urine clarity Urine clarity SL CLOUDY CLEAR 11/28/2017 [facility] Urine color determination Urine color determination YELLOW YELLOW 11/28/2017 [facility] Urine erythrocytes detection Urine erythrocytes detection 2+ NEGATIVE 11/28/2017 [facility] Urine glucose detection Urine glucose detection NEGATIVE NEGATIVE 11/28/2017 [facility] Urine ketones detection by automated test strip Urine ketones detection by automated test strip TRACE NEGATIVE 11/28/2017 [facility] Urine leukocyte esterase detection by dipstick Urine leukocyte esterase detection by dipstick 1+ NEGATIVE 11/28/2017 [facility] Urine nitrite detection Urine nitrite detection NEGATIVE NEGATIVE 11/28/2017 [facility] Urine pH measurement by automated test strip Urine pH measurement by automated test strip 7 5 - 7 11/28/2017 [facility] Urine protein measurement by test strip (mass/volume) Urine protein measurement by test strip (mass/volume) NEGATIVE NEGATIVE 11/28/2017 [facility] Urine total bilirubin measurement (mass/volume) Urine total bilirubin measurement (mass/volume) NEGATIVE NEGATIVE 11/28/2017 [facility] Urine urobilinogen measurement by test strip (mass/volume) Urine urobilinogen measurement by test strip (mass/volume) 0.2 0.2 - 1 11/28/2017 [facility] Serum or plasma creatine kinase MB measurement (mass/volume) Serum or plasma creatine kinase MB measurement (mass/volume) 20.10 0 - 5.0 11/27/2017 [facility] Serum or plasma creatine kinase measurement (enzymatic activity/volume) Serum or plasma creatine kinase measurement (enzymatic activity/volume) 1724 29 - 168 11/27/2017 [facility] Serum or plasma thyrotropin measurement by detection limit <=0.005 miu/l (units/volume) Serum or plasma thyrotropin measurement by detection limit <=0.005 miu/l (units/volume) 4.402 0.350 - 4.940 11/27/2017 [facility] Serum or plasma thyroxine (T4) free measurement (mass/volume) Serum or plasma thyroxine (T4) free measurement (mass/volume) 1.18 0.9 - 1.8 11/27/2017 [facility] Troponin I measurement by highly sensitive enzyme immunoassay Troponin I measurement by highly sensitive enzyme immunoassay 0.108 0 - 0.300 11/27/2017 [facility] Serum or plasma cholesterol in HDL measurement (mass/volume) Serum or plasma cholesterol in HDL measurement (mass/volume) 55 40 - 60 11/25/2017 [facility] Serum or plasma cholesterol in LDL measurement (mass/volume) Serum or plasma cholesterol in LDL measurement (mass/volume) 105 60 - 130 11/25/2017 [facility] Serum or plasma cholesterol measurement (mass/volume) Serum or plasma cholesterol measurement (mass/volume) 172 0 - 199 11/25/2017 [facility] Serum or plasma total cholesterol/cholesterol in HDL mass ratio Serum or plasma total cholesterol/cholesterol in HDL mass ratio 3.1 3.0 - 3.6 11/25/2017 [facility] Serum or plasma triglyceride measurement (mass/volume) Serum or plasma triglyceride measurement (mass/volume) 58 0 - 149 11/25/2017 [facility] Bacterial urine culture Bacterial urine culture Urine Culture [facility] Pathology Reports No Data Provided for This Section Diagnostic Reports No Data Provided for This Section Consultation Notes No Data Provided for This Section Discharge Summaries No Data Provided for This Section History and Physicals No Data Provided for This Section Vital Signs Vital Sign Value Date Comments Source BMI Calculated 22.02 04/15/2018 [facility] Weight 51.989 04/15/2018 [facility] Height 153.67 cm 04/15/2018 [facility] Systolic (mm Hg) 148 04/15/2018 [facility] Diastolic (mm Hg) 72 04/15/2018 [facility] Heart Rate 55 04/15/2018 [facility] Temperature Oral (F) 98.5 F 02/07/2013 [facility] Respitory Rate 18 02/07/2013 [facility] Heart Rate 59 02/07/2013 [facility] Diastolic (mm Hg) 76 02/07/2013 [facility] Systolic (mm Hg) 173 02/07/2013 [facility] Height 160.02 cm 02/06/2013 [facility] Weight 61.364 02/06/2013 [facility] Systolic (mm Hg) 158 02/06/2013 [facility] Diastolic (mm Hg) 80 02/06/2013 [facility] Temperature Oral (F) 98.5 F 02/06/2013 [facility] Heart Rate 62 02/06/2013 [facility] Respitory Rate 18 02/06/2013 [facility] Encounters Location Location Details Encounter Type Encounter Number Reason For Visit Attending Provider ADM Date DC Date Status Source [facility] Emergency [id number] CARMEN UMAÑA 02/06/2013 02/06/2013 Discharged [facility] Discharged Inpatient [id number] TRAY SCHAFFER MD 11/27/2017 12/05/2017 [facility] Neurology [facility] Phone Message [id number] 02/21/2018 02/23/2018 [facility] Outpatient [id number] [facility] 04/15/2018 Active [facility] Outpatient [id number] [facility] 04/15/2018 04/16/2018 [facility] Neurology [facility] Ambulatory Pre-Reg [id number] [facility] 04/15/2018 04/15/2018 [facility] Neurology [facility] Phone Message [id number] 04/25/2018 04/27/2018 [facility] Outpatient [id number] [facility] 07/09/2018 Active [facility] Outpatient [id number] [facility] 07/09/2018 07/10/2018 [facility] Outpatient [id number] [facility] 11/04/2018 Active [facility] Procedures Procedure Code Date Perfomer Comments Source Magnetic resonance imaging of cervical spine without contrast [id number] 11/28/2017 [facility] Magnetic resonance imaging of lumbar spine without contrast [id number] 11/26/2017 [facility] MRI jnt of lwr extre w/o dye [id number] 11/26/2017 [facility] Magnetic resonance imaging of brain without contrast [id number] 11/24/2017 [facility] Cataract surgery [id number] [facility] Right heart catheterization [id number] [facility] Assessment and Plan No Data Provided for This Section Plan of Care Plan of Care Date Source Discharge Date 12/05/17 4:33pm Disposition HOME, SELF-CARE Instructions/Education Provided TIA Prescriptions See Medication Section Referrals JAMIA,EBENEZER DO (Family Practice) Order Date: 2 Weeks Entered Date: 12/05/2017 1:06pm Address: [address] [place] [phone] Additional Instructions/Education ACTIVITY TOLERATED LOW SODIUM DIET TOLERATED FOLLOW UP WITH YOUR PRIMARY CARE PHYSICIAN IN 1-2 WEEKS. 12/05/2017 [facility] Social History Social History Date Source Social History TypeResponse Substance Abuse Use: None. Employment/School Status: Retired. Alcohol Never Smoking Status Never smoker; Exposure to Tobacco Smoke None; Cigarette Smoking Last 365 Days No; Reg Smoking Cessation Counseling Yes entered on: 04/15/18 04/15/2018 [facility] Smoking Status Start Date Stop Date Never Smoker 12/05/2017 [facility] Family History No Data Provided for This Section Advance Directives Order Name Results Value Date Source Advance Directives Advance Directives Directive Response Recorded Date/Time Does the patient have an advance directive? No 11/24/17 8:55am If yes, is advance directive on file with [facility]? No 11/24/17 8:55am If not on file with [facility] will patient provide a copy? No 11/24/17 8:55am Do you have a Directive to Physician? No 11/24/17 6:14am Do you have a Medical Power of Lead Warehouse Associate? No 11/24/17 6:14am Do you have an out of hospital Do Not Resuscitate Order? No 11/24/17 6:14am Do you have any special needs we should be aware of? No 11/24/17 6:14am Do you have a support person here with you today? Yes 11/24/17 6:14am Did patient receive Notice of Privacy Practices? Yes 11/24/17 6:14am Did patient receive patient rights and responsibilities? Yes 11/24/17 6:14am 12/05/2017 [facility] Functional Status No Data Provided for This Section
--- OUTSIDE RECORDS SUMMARY | 2018-09-20 14:31 | XMS REPORT | Summary of Care ---
Author Author [facility] Organization [facility] Address Unknown Phone Unavailable Encounter HQ Abrahamntr_hailee(FIN) [id number] Date(s): 02/21/18 - 02/22/18 [facility] [address] [place] [address]- Vital Signs No data available for this section Problem List Condition Effective Dates Status Health Status Informant HTN - Resolved Hypertension(Confirm ed) Hypothyroid(Confirme Resolved d) Parkinsonism(Confirm Active ed) Allergies, Adverse Reactions, Alerts Substance Reaction Severity Status codeine Active erythromycin Active Percodan Active Medications No data available for this section Results No data available for this section Immunizations No data available for this section Procedures Procedure Date Related Diagnosis Body Site Status Cataract surgery Completed Right heart catheterization Completed Social History Social History Type Response Substance Abuse Use: None. Employment/School Status: Retired. Alcohol Never Smoking Status Never smoker; Exposure to Tobacco Smoke None; Cigarette Smoking Last 365 Days No; Reg Smoking Cessation Counseling Yes entered on: 04/15/18 Assessment and Plan No data available for this section
--- OUTSIDE RECORDS SUMMARY | 2018-09-20 14:31 | XMS REPORT | CCD ---
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 Role Phone Justa Washburn CP HeathFran stack Juventino CP MaheshBennyleodan Rivas RP Allergies, Adverse Reactions, Alerts Substance Reaction Status codeine Active erythromycin Active Percodan Active Problem List Condition Effective Dates Status HTN - Hypertension Resolved Hypothyroid Resolved Medications Medication Instructions Start Date End Date Status fluorescein 1 appl, Route: Each Affected Eye, 02/06/2013 02/06/2013 Completed ophthalmic 1 mg test ONCE, Start date: 02/06/13 15:40:00, Stop date: 02/06/13 15:40:00 proparacaine 2 drp, Route: Each Affected Eye, 02/06/2013 02/06/2013 Completed ophthalmic 0.5% ONCE, Start date: 02/06/13 solution 15:40:00, Stop date: 02/06/13 15:40:00 Vital Signs Most recent to oldest [Reference Range]: 1 2 Height 160.02 cm (02/06/2013 15:35:00) Temperature Oral [96.4-99.1 DegF] 98.5 DegF (02/06/2013 19:13:00) 98.5 DegF (02/06/2013 15:35:00) Systolic Blood Pressure [90-140 mmHg] 173 mmHg *HI* (02/06/2013 19:13:00) 158 mmHg *HI* (02/06/2013 15:35:00) Diastolic Blood Pressure [60-90 mmHg] 76 mmHg (02/06/2013 19:13:00) 80 mmHg (02/06/2013 15:35:00) Respiratory Rate [14-20 BRMIN] 18 BRMIN (02/06/2013 19:13:00) 18 BRMIN (02/06/2013 15:35:00) Peripheral Pulse Rate [60-100 bpm] 59 bpm *LOW* (02/06/2013 19:13:00) 62 bpm (02/06/2013 15:35:00) Weight 61.364 kg (02/06/2013 15:35:00)
--- OUTSIDE RECORDS SUMMARY | 2018-09-20 14:31 | XMS REPORT | Summary of Care ---
Author Author [facility] Organization [facility] Address Unknown Phone Unavailable Encounter HQ Abrahamntr_hailee(FIN) [id number] Date(s): 04/25/18 - 04/26/18 [facility] [address] [place] [phone] Vital Signs No data available for this [...]
--- OUTSIDE RECORDS SUMMARY | 2018-09-20 14:31 | XMS REPORT | Summary of Care ---
Author Author [facility] Organization [facility] Address Unknown Phone Unavailable Encounter HQ Denisha_hailee(FIN) [id number] Date(s): 07/09/18 - 07/09/18 [facility] [address] [place] [address]- Discharge Disposition: Home or Self Care Attending Physician: Brian Pritchett MD Referring Physician: Carter Corcoran DO Vital Signs No data available for this [...]
--- OUTSIDE RECORDS SUMMARY | 2018-09-20 14:31 | XMS REPORT | Summary of Care ---
Author Author [facility] Organization [facility] Address Unknown Phone Unavailable Encounter HQ Denisha_hailee(FIN) [id number] Date(s): 04/15/18 - 04/15/18 [facility] [address] [place] [phone] Attending Physician: Brian Pritchett MD Referring Physician: Carter Corcoran DO Vital Signs Most recent to 1 oldest [Reference Range]: Height 153.67 cm (04/15/18 12:31 PM) Blood Pressure 148/72 mmHg [90-140/60-90 mmHg] *HI* (04/15/18 12:31 PM) Peripheral Pulse 55 bpm Rate [60-100 bpm] *LOW* (04/15/18 12:31 PM) Weight 51.989 kg (04/15/18 12:31 PM) Body Mass Index 22.02 m2 (04/15/18 12:31 PM) Problem List Condition Effective Dates Status Health Status Informant HTN - Resolved Hypertension(Confirm ed) Hypothyroid(Confirme Resolved d) Allergies, Adverse Reactions, Alerts Substance Reaction Severity [...]
--- OUTSIDE RECORDS SUMMARY | 2018-09-20 14:31 | XMS REPORT | Summary of Care ---
Author Author [facility] Organization [facility] Address Unknown Phone Unavailable Encounter SAMARA Huerta([place]) [id number] Date(s): 04/15/18 - 04/15/18 [facility] [address] [place] [phone] Discharge Disposition: Home or Self Care Attending Physician: Brian Pritchett MD Referring Physician: Brian Pritchett MD Vital Signs No data available for this section Problem List Condition Effective Dates Status Health Status Informant HTN - Resolved Hypertension(Confirm ed) Hypothyroid(Confirme Resolved d) Allergies, Adverse Reactions, Alerts Substance Reaction Severity Status codeine Active erythromycin Active Percodan Active Medications AMIODarone 200 mg oral tablet 200 mg=1 tab, PO, Daily, 0 Refill(s) Start Date: 04/15/18 Status: Ordered aspirin 81 mg tablet, enteric coated 81 mg=1 tab, PO, Daily, # 90 tab, 3 Refill(s) Start Date: 04/15/18 Status: Ordered atorvastatin 20 mg oral tablet 20 mg=1 tab, PO, Daily, 0 Refill(s) Start Date: 04/15/18 Status: Ordered clopidogrel 75 mg oral tablet 75 mg=1 tab, PO, Daily, 0 Refill(s) Start Date: 04/15/18 Status: Ordered metoprolol tartrate 25 mg oral tablet 25 mg=1 tab, PO, BID, 0 Refill(s) Start Date: 04/15/18 Status: Ordered Synthroid 175 mcg (0.175 mg) oral tablet 175 microgram=1 tab, PO, Daily, 0 Refill(s) Start Date: 04/15/18 Status: Ordered Tylenol 325 mg oral capsule 325 mg=1 cap, PO, TID, 0 Refill(s) Start Date: 04/15/18 Status: Ordered Xarelto 20 mg oral tablet 20 mg=1 tab, PO, QPM, # 30 tab, 3 Refill(s) Start Date: 04/15/18 Status: Ordered Results No data available for this section [...]
--- OUTSIDE RECORDS SUMMARY | 2018-09-20 14:32 | XMS REPORT ---
Author Author [facility] Address Unknown Phone Unavailable Care Team Providers Care Durability Engineer Name Role Phone TRAY SCHAFFER Unavailable Unavailable Problems This patient has no known problems. Allergies, Adverse Reactions, Alerts This patient has no known allergies or adverse reactions. Medications This patient has no known medications. Results Test Description Test Time Test Comments Text Results Atomic Results Result Comments MRI SPINE CERVICAL WO 2017-11-30 10:27:00 [place] [address] Patient Name: YESSICA HAYS MR #: [id number] : 1945 Age/Sex: 72/F Req #: [id number] [facility] Physician: TRAY SCHAFFER MD Ordered by: MIGUELITO MAHARAJ MD Report #: [id number] Location: MED/SURG3 Room/Bed: [facility] Procedure: [id number] MRI/MRI SPINE CERVICAL WO Exam Date: 11/28/17 Exam Time: 0830 REPORT STATUS: Signed History: 72-year-old female with right hip, bilateral lower extremity pain with concern for cervical myelopathy. Comparison studies: None Technique: Sagittal T1, T2 and IR, axial T2 and axial gradient echo Intravenous contrast: None Findings: Alignment: Normal lordosis. No scoliosis. Cervicomedullary junction: Retro- dental pannus measuring 3.4 mm, with associated mild [...] with 1.9 mm of posterior mass effect. Dis cs slightly abuts the adjacent spinal cord. Thickening [...] REID MD 1142 Transcribed By: RICHA on 11/30/17 1142 COPY TO: MIGUELITO MAHARAJ MD Stress Test - Treadmill ONLY 2017-11-26 19:43:00 [place] [address] Patient Name : YESSICA HAYS MR #: [id number] : 1945 Age/Sex: 72/F Adm Physician : TRAY SCHFAFER MD Admit Date : 11/27/17 Location : MED/SURG3 Room/Bed : [facility] REPORT: Cardiology Report DATE OF STUDY: November 26, 2017 NUCLEAR STRESS REPORT INDICATION: Chest pain. DESCRIPTION OF PROCEDURE: Pharmacologic stress testing was performed with regadenoson per protocol. The heart rate was 74 beats per minute at rest and increased to 99 beats per minute during the regadenoson infusion. The rest blood pressure was 156/76 and decreased to 130/65 mmHg, which is a normal response. The patient did not develop any significant symptoms. The resting electrocardiogram demonstrated normal sinus rhythm. There were no ST-segment changes consistent with myocardial ischemia. Myocardial perfusion imaging was performed at rest following the injection of 11 mCi of tetrofosmin. At peak pharmacologic effect, the patient was injected with 27 mCi of tetrofosmin. Gated post stress tomographic imaging was performed. FINDINGS: The overall quality of study is fair. Left ventricular cavity is noted to be normal size on the rest and stress studies. SPECT images demonstrate homogenous tracer distribution throughout the myocardium. Gated SPECT imaging reveals normal myocardial thickening and wall motion. The left ventricular ejection fraction was calculated to be greater than 70%. IMPRESSION: Myocardial perfusion imaging is normal. Overall, left ventricular systolic function was normal without regional wall motion abnormalities. Job#: [id number] DR Signature Date Dictated By: TOMASZ ALFARO MD Transcribed By: SMEDS on 11/26/17 <Electronically signed by TOMASZ ALFARO MD><<Signature on File>>12/23/17 5833 COPY TO: MRI SPINE LUMBAR WO 2017-11-26 13:13:00 [place] [address] Patient Name: YESSICA HAYS MR #: [id number] : 1945 [facility] 72[id number] Req #: [id number] Adm Physician: TRAY SCHAFFER MD Ordered by: PARMINDER CORRALES MD Report #: [id number] Location: ICU Room/Bed: ICU [facility] Procedure: [id number] MRI/MRI SPINE LUMBAR WO Exam Date: Exam Time: REPORT STATUS: Signed EXAMINATION: MRI of the lumbar spine without contrast HISTORY: Low back pain radiating to right lower extremity COMPARISON: None. TECHNIQUE: Sagittal T1, T2, STIR; axial T2 and proton density. FINDINGS: It is assumed that there are 5 lumbar vertebrae. Curvature/Alignment: Normal lordosis. Vertebrae: No evidence of recent fracture, infection, or neoplasm. Chronic endplate degenerative changes at L2- L3. Conus: Normal, terminating at T12-L1 Cauda equina: Unremarkable. Lower thoracic: Unremarkable. Paraspinal soft tissues: Tiny T2 hyperintense focus in the left kidney may correspond to a cyst. Degenerative changes: L1-L2: Mild symmetric disc bulge. Approximately 5 mm AP 1.3 cm superior to inferior central and slightly left paracentral inferi desirae migrated disc extrusion which flattens the ventral [...] spinal canal and right foraminal stenosis at L4-L5. 2. Central inferiorly migrated disc extrusion at L1-L2 without evidence of nerve root compression. 3. Minimal degenerative retrolisthesis at L2-L3. Signed by: Dr. More Maravilla M.D. on 11/26/2017 1:20 PM Dictated By: MORE MARAVILLA MD 1320 Transcribed By: RICHA on 11/26/17 1320 COPY TO: PARMINDER CORRALES MD MRI HIP RIGHT WO 2017-11-26 12:01:00 [place] [address] Patient Name: YESSICA HAYS MR #: [id number] : 1945 Age/Sex: 72/F Req #: [id number] Adm Physician: TRAY SCHAFFER MD Ordered by: PARMINDER CORRALES MD Report #: [id number] Location: ICU Room/Bed: ICU [facility] Procedure: [id number] MRI/MRI HIP RIGHT WO Exam Date: Exam Time: REPORT STATUS: Signed TECHNIQUE: Magnetic resonance imaging of the RIGHT HIP [...] PM Dictated By: JERONIMO ESCALERA MD 04 Transcribed By: RICHA on 11/26/171204 COPY TO: PARMINDER CORRALES MD MRI BRAIN WO 2017-11-24 11:54:00 [place] [address] Patient Name: YESSICA HAYS MR #: [id number] : 1945 Age/Sex: 72/F Req #: [id number] Adm Physician: TRAY SCHAFFER MD Ordered by: REY HENLEY MD Report #: [id number] Location: [facility] Room/Bed: [place] [address] Procedure: [id number] MRI/MRI BRAIN WO Exam Date: Exam Time: REPORT STATUS: Signed Examination: Brain MRI without Contrast History: 72-year-old female with confusion and slurred speech. Comparison studies: Head CT performed earlier the same day. Technique: Precontrast: Hi resolution Sag T1 with coronal and axial reformats. Axial DWI, T2, T2 flair, gradient echo or SWI Intravenous contrast: None. Findings: Structural lesions: No intra-or extra-axial masses. No hematomas. Atrophy: General: Symmetric and [...] abnormalities. Patent foramen magnum. No Chiari one malfo rmation. Paranasal sinuses: No T2 hyperintense mucosal thickening. IMPRESSION: 1. No acute intracranial abnormality, specifically, no acute infarct. 2. Mild chronic microvascular ischemic change. Signed by: Dr. Papito Arevalo M.D. on 11/24/2017 11:57 AM Dictated By: PAPITO CHRISTOPHER MD 1157 Transcribed By: RICHA on 11/24/17 1157 COPY TO: REY HENLEY MD CT BRAIN -[facility] 2017-11-24 06:47:00 [place] [address] Patient Name: YESSICA HAYS MR #: [id number] : 1945 Age/Sex: 72/F Req #: [id number] Adm Physician: Ordered by: MADELYN LANDRUM MD Report #: [id number] Location: [facility] Room/Bed: Procedure: [id number] HOPD/CT BRAIN WO-[facility] Exam Date: 11/24/17 Exam Time: 0635 REPORT STATUS: Signed EXAMINATION: Head CT without contrast. HISTORY:Confusion and slurred speech. COMPARISON:None. TECHNIQUE: Multidetector axial images were obtained from the foramen magnum to the vertex without contrast. The images were reconstructed using brain and bone algorithms. Thin section brain images were reformatted into coronal and sagittal planes. Dose modulation, iterative reconstruction, and/or weight based adjustment of the mA/kV [...] of thrombosis. Ventricles: No hydrocephalus or displacement. Extra-axial spaces: No abnormal density. Brain volume: Generalized age-related cerebral volume loss. Craniocervical junction: No mass, Chiari malformation, or basilar invagination. Sella: No mass. Paranasal/mastoid sinuses: Imaged portions unremarkable. IMPRESSION: No acute intracranial abnormality. Mild supratentorial white matter microvascular ischemic changes. Generalized age-related cerebral volume loss. Signed by: Dr. Jessica Smith M.D. on 11/24/2017 6:51 AM Dictated By: JESSICA SMITH MD 0 Transcribed By: RICHA on 11/24/17650 COPY TO: MADELYN LANDRUM MD
--- NOTE | 2018-09-20 15:51 | Diagnostic Imaging Report ---
EXAM: CT Pelvis without contrast INDICATION: Left hip pain, unable to walk. COMPARISON: None. TECHNIQUE: Pelvis were scanned utilizing a multidetector helical scanner from the iliac crest to the pubic symphysis without administration of IV contrast. Coronal and sagittal reformations were obtained. Routine protocol was performed. IV CONTRAST: None. ORAL CONTRAST: Gastrografin RADIATION DOSE: Total DLP: 296 mGy*cm Dose modulation, iterative reconstruction, and/or weight based adjustment of the mA/kV was utilized to reduce the radiation dose to as low as reasonably achievable. COMPLICATIONS: None FINDINGS: LINES and TUBES: None. GI TRACT: No abnormal distention, wall thickening, or evidence of bowel obstruction. Partially visualized appendix is unremarkable. PELVIC ORGANS/BLADDER: Unremarkable. LYMPH NODES: No lymphadenopathy. VESSELS: Minimal scattered atherosclerosis. PERITONEUM / RETROPERITONEUM: No free air or fluid. BONES: No evidence of fracture or malalignment. No significant degenerative changes in the bilateral hips. SOFT TISSUES: Unremarkable. IMPRESSION: No acute osseous abnormality. Signed by: Dr. Ana Maria Desai MD on 09/20/2018 3:48 PM
--- NOTE | 2018-09-20 17:00 | NUR ---
Pt wants to go home as she is not comfortable sitting here any more and spouse states that he will take her home and get her comfortable and come back and hand picker the CT disk later. Dr. Hooper is aware and states that it is okay that they do not wait for the results of the CT lumbar scan results. Dr. Hooper recieved the results and called the pt's and he will talk to him further about the results when he stops in to hand picker the disk and he will give him some more information about the results.
[2018-09-20 17:13] VITALS: BP 172/86
--- NOTE | 2018-09-20 17:23 | Diagnostic Imaging Report ---
CT LUMBAR SPINE WITHOUT-HOPD HISTORY: Low back pain radiates to left hip COMPARISON: MRI of the lumbar spine 11/26/2017; CT of the pelvis 09/20/2018 TECHNIQUE: Axial CT images of the lumbar spine were obtained without contrast. Coronal and sagittal reconstructions obtained from the axial data. One or more of the following dose reduction techniques were used: Automated exposure control, adjustment of the mA and/or kV according to patient size, and/or utilization of iterative reconstruction technique. DISCUSSION: Bone demineralization limits evaluation. There are 5 nonrib-bearing lumbar vertebral bodies. Lumbar lordosis is preserved. There is no significant scoliosis or subluxation. A mildly displaced fracture of the left sacral ala may be acute or subacute; the anterior S2 vertebral body is involved. No definite additional acute fracture or compression deformity is seen. No gross spinal canal mass is seen. There is mild paraspinal muscle atrophy at the lumbosacral junction. The paravertebral and paraspinal soft tissues are otherwise unremarkable. Mild to moderate multilevel spondylosis is most prominent at L2-L3. L1-L2: Mild canal stenosis due to disc bulge. No significant foraminal stenosis. L2-L3: Disc bulge without significant canal or foraminal stenosis. L3-L4: Mild left foraminal stenosis due to asymmetric disc bulge and facet arthrosis. No significant canal or right foraminal stenosis. L4-L5: Moderate canal stenosis due to disc bulge and ligamentum flavum thickening. Mild bilateral foraminal stenoses due to disc bulge and facet arthrosis. L5-S1: Disc bulge without significant canal or foraminal stenosis. Mild aortic calcified atherosclerosis. IMPRESSION: 1. Acute or subacute, mildly displaced fracture of the left sacral ala involves the anterior S2 vertebral body. 2. No acute osseous abnormalities in the lumbar spine. 3. Mild to moderate multilevel spondylosis, most prominent at L2-L3. 4. Moderate degenerative canal stenosis at L4-L5. Signed by: Dr. Irvin Miguel M.D. on 09/20/2018 5:20 PM
--- NOTE | 2018-09-20 18:54 | NUR ---
Pt spouse returned to pick up man the CT disk and talked to Dr. Hooper about the results of the pending CT results. Mr. Houser verbalized understanding and will alternate the pt's pain medications with tylenol to help control her pain and keep the appt with her pain specialist. All Mr. Houser's questions were answered at this time.
== END 2018-09-20 17:05 | disposition home or self-care (01) ==
LOC: FSED 14:26
DX: M25.552 Pain in left hip (principal); S32.10XA Unspecified fracture of sacrum, initial encounter for closed fracture; W18.30XA Fall on same level, unspecified, initial encounter; G20 Parkinson's disease; I10 Essential (primary) hypertension; I48.91 Unspecified atrial fibrillation; I25.2 Old myocardial infarction
CPT/HCPCS: 72131; 72192; 99283

== ENCOUNTER 2018-09-22 12:45 | Inpatient (IN) | payer MEDICARE ==
[~2018-09-22] VITALS: Ht 154.9 cm; Wt 55.5 kg
[2018-09-22] VITALS (7 sets, daily range): BP systolic 128–186; BP diastolic 71–96
--- OUTSIDE RECORDS SUMMARY | 2018-09-22 12:49 | XMS REPORT | Clinical Summary ---
Author Author [facility] Address Unknown Phone Unavailable Care Team Providers Care Monitoring Tech Name Role Phone Carter Corcoran DO PCP Allergies Comments Active Allergy Reactions Severity Noted Date Codeine Other (See 05/22/2016 Comments) Erythromycin GI 05/22/2016 Intolerance Oxycodone Rash Low 05/22/2016 Eef-Igvxyecfd-Nsu Medications End Date Status Medication Sig Dispensed [...] INFLUENZA VACCINE 10/10/2018 Results Not on fileafter 09/21/2017 Insurance Type Payer Benefit Subscriber ID Effective Phone Address Plan / Dates Group PPO HU[employer]NA MEDICARE HUMANA xxxxxxxxx 2012-P MEDICARE resent PPO/PFFS/E [facility] Advance Directives Patient has advance care planning documents on file. For more information, clive e contact: Jama Sandy [address] [place] [address]
--- OUTSIDE RECORDS SUMMARY | 2018-09-22 12:49 | XMS REPORT | Continuity of Care Document ---
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 [facility] HTN - Hypertension Resolved Problem 09/12/2018 [facility] Hypothyroid Resolved Problem 09/12/2018 [facility] Parkinsonism Active Problem 09/12/2018 [facility] Medications Medication Details Route Status Patient Instructions Ordering Provider Order Date Source AMIODarone 200 mg oral tablet 200 mg=1 tab, PO, Daily, 0 Refill(s) Active 04/15/2018 [facility] Aspirin 81 MG Enteric Coated Tablet 81 mg=1 tab, PO, Daily, # 90 tab, 3 Refill(s) Active 04/15/2018 [facility] metoprolol tartrate 25 mg oral tablet 25 mg=1 tab, PO, BID, 0 Refill(s) Active 04/15/2018 [facility] atorvastatin 20 mg oral tablet 20 mg=1 tab, PO, Daily, 0 Refill(s) Active 04/15/2018 [facility] rivaroxaban 20 MG Oral Tablet [Xarelto] 20 mg=1 tab, PO, QPM, # 30 tab, 3 Refill(s) Active 04/15/2018 [facility] Levothyroxine Sodium 0.175 MG Oral Tablet [Synthroid] 175 microgram=1 tab, PO, Daily, 0 Refill(s) Active 04/15/2018 [facility] Acetaminophen 325 MG Oral Capsule [Tylenol] 325 mg=1 cap, PO, TID, 0 Refill(s) Active 04/15/2018 [facility] clopidogrel 75 mg oral tablet 75 mg=1 tab, PO, Daily, 0 Refill(s) Active 04/15/2018 [facility] Aleve , As Needed Active 12/05/2017 [facility] Nebivolol Hcl (Bystolic) 2.5 Mg Tablet, Oral Daily Active 12/05/2017 [facility] Cyclobenzaprine Hcl (Flexeril) 10 Mg Tablet, 10 Mg Oral As Needed Active 11/24/2017 [facility] Levothyroxine Sodium (Synthroid) 137 Mcg Tablet, 137 Mcg Oral Daily Active 11/24/2017 [facility] Nebivolol Hcl (Bystolic) 10 Mg Tablet, 10 Mg Oral Daily Active 11/24/2017 [facility] fluorescein ophthalmic 1 mg test 1 appl, Route: Each Affected Eye, ONCE, Start date: 02/06/13 15:40:00, Stop date: 02/06/13 15:40:00 Inactive Bora 02/06/2013 [facility] proparacaine ophthalmic 0.5% solution 2 drp, Route: Each Affected Eye, ONCE, Start date: 02/06/13 15:40:00, Stop date: 02/06/13 15:40:00 Inactive Bora 02/06/2013 [facility] Amiodarone Hcl 200 Mg Tablet Daily Active [facility] Ciprofloxacin Hcl (Cipro) 500 Mg Tablet Twice A Day Active [facility] Levothyroxine Sodium 75 Mcg Tablet Daily Active [facility] Metoprolol Tartrate 25 Mg Tablet Twice A Day Active [facility] Allergies, Adverse Reactions, Alerts Substance Category Reaction Severity Reaction type Status Date Reported Comments Source oxycodone HCl RASH Intermediate Allergy to Substance Active 08/28/2011 [facility] Oxycodone Terephthalate RASH Intermediate Allergy to Substance Active 08/28/2011 [facility] Codeine VOMITING Intermediate Allergy to Substance Active 08/28/2011 [facility] ERTHROMYCIN VOMITING Intermediate Allergy to Substance Active 08/28/2011 [facility] codeine Assertion Drug allergy Active [facility] erythromycin Assertion Drug allergy Active [facility] Percodan Assertion Drug allergy Active [facility] Immunizations No Data Provided for This Section Results Order Name Results Value Reference Range Date Interpretation Comments Source Estimated glomerular filtration rate (GFR) determination Estimated glomerular filtration rate (GFR) determination 59 60 12/05/2017 [facility] Glucose measurement Glucose measurement 96 74 - 118 12/05/2017 [facility] Serum or plasma anion gap Serum or plasma anion gap 15.0 8 - 16 12/05/2017 [facility] Serum or plasma calcium measurement (mass/volume) Serum or plasma calcium measurement (mass/volume) 9.4 8.4 - 10.2 12/05/2017 [facility] Serum or plasma carbon dioxide, total measurement (moles/volume) Serum or plasma carbon dioxide, total measurement (moles/volume) 26 22 - 29 12/05/2017 [facility] Serum or plasma chloride measurement (moles/volume) Serum or plasma chloride measurement (moles/volume) 106 98 - 107 12/05/2017 [facility] Serum or plasma creatinine measurement (mass/volume) Serum or plasma creatinine measurement (mass/volume) 0.94 0.57 - 1.11 12/05/2017 [facility] Serum or plasma potassium measurement (moles/volume) Serum or plasma potassium measurement (moles/volume) 3.0 3.5 - 5.1 12/05/2017 [facility] Serum or plasma sodium measurement (moles/volume) Serum or plasma sodium measurement (moles/volume) 144 136 - 145 12/05/2017 [facility] Serum or plasma urea nitrogen measurement (mass/volume) Serum or plasma urea nitrogen measurement (mass/volume) 10 7 - 26 12/05/2017 [facility] Serum or plasma urea nitrogen/creatinine mass ratio Serum or plasma urea nitrogen/creatinine mass ratio 11 6 - 25 12/05/2017 [facility] Clostridium difficile A and B toxin assay Clostridium difficile A and B toxin assay NEGATIVE NEGATIVE 12/02/2017 [facility] Automated blood basophil count (count/volume) Automated blood basophil count (count/volume) 0.1 0.0 - 0.1 12/02/2017 [facility] Automated blood basophil count as percentage of total leukocytes Automated blood basophil count as percentage of total leukocytes 0.6 0.0 - 1.0 12/02/2017 [facility] Automated blood eosinophil count Automated blood eosinophil count 0.2 0.0 - 0.4 12/02/2017 [facility] Automated blood eosinophil count as percentage of total leukocytes Automated blood eosinophil count as percentage of total leukocytes 3.1 0.0 - 6.0 12/02/2017 [facility] Automated blood hematocrit (volume fraction) Automated blood hematocrit (volume fraction) 36.4 34.2 - 44.1 12/02/2017 [facility] Automated blood lymphocyte count as percentage ot total leukocytes Automated blood lymphocyte count as percentage ot total leukocytes 34.8 18.0 - 39.1 12/02/2017 [facility] Automated blood monocyte count as percentage of total leukocytes Automated blood monocyte count as percentage of total leukocytes 8.9 4.4 - 11.3 12/02/2017 [facility] Automated blood neutrophil count Automated blood neutrophil count 4.1 2.1 - 6.9 12/02/2017 [facility] Automated blood platelet count (count/volume) Automated blood platelet count (count/volume) 227 140 - 360 12/02/2017 [facility] Automated blood segmented neutrophil count as percentage of total leukocytes Automated blood segmented neutrophil count as percentage of total leukocytes 52.3 38.7 - 80.0 12/02/2017 [facility] Automated erythrocyte mean corpuscular hemoglobin (mass per erythrocyte) Automated erythrocyte mean corpuscular hemoglobin (mass per erythrocyte) 30.2 28 - 32 12/02/2017 [facility] Automated erythrocyte mean corpuscular hemoglobin concentration measurement (mass/volume) Automated erythrocyte mean corpuscular hemoglobin concentration measurement (mass/volume) 33.5 31 - 35 12/02/2017 [facility] Automated erythrocyte mean corpuscular volume Automated erythrocyte mean corpuscular volume 90.1 81 - 99 12/02/2017 [facility] Blood erythrocytes automated count (number/volume) Blood erythrocytes automated count (number/volume) 4.04 3.6 - 5.1 12/02/2017 [facility] Blood hemoglobin measurement (moles/volume) Blood hemoglobin measurement (moles/volume) 12.2 12.0 - 16.0 12/02/2017 [facility] Blood leukocytes automated count (number/volume) Blood leukocytes automated count (number/volume) 7.84 4.8 - 10.8 12/02/2017 [facility] Blood lymphocytes count (number/volume) Blood lymphocytes count (number/volume) 2.7 1.0 - 3.2 12/02/2017 [facility] Blood monocytes automated count (number/volume) Blood monocytes automated count (number/volume) 0.7 0.2 - 0.8 12/02/2017 [facility] Red Cell Distribution Width 13.7 11.7 - 14.4 12/02/2017 [facility] IM GRANULOCYTES % 0.3 0.0 - 1.0 12/02/2017 [facility] Absolute Immature Granulocyte (auto 0.02 0 - 0.1 12/02/2017 [facility] Automated urine sediment leukocyte count by microscopy (number/high power field) Automated urine sediment leukocyte count by microscopy (number/high power field) <10 0 - 5 11/28/2017 [facility] Bacteria detection in urine sediment by light microscopy Bacteria detection in urine sediment by light microscopy RARE NONE 11/28/2017 [facility] Epithelial cells detection in urine sediment by light microscopy Epithelial cells detection in urine sediment by light microscopy FEW NONE 11/28/2017 [facility] Erythrocytes detection in urine sediment by light microscopy Erythrocytes detection in urine sediment by light microscopy <20 0 - 5 11/28/2017 [facility] Specific gravity of Urine by Test strip Specific gravity of Urine by Test strip 1.005 1.010 - 1.025 11/28/2017 [facility] Urine clarity Urine clarity SL CLOUDY CLEAR 11/28/2017 [facility] Urine color determination Urine color determination YELLOW YELLOW 11/28/2017 [facility] Urine erythrocytes detection Urine erythrocytes detection 2+ NEGATIVE 11/28/2017 [facility] Urine glucose detection Urine glucose detection NEGATIVE NEGATIVE 11/28/2017 [facility] Urine ketones detection by automated test strip Urine ketones detection by automated test strip TRACE NEGATIVE 11/28/2017 [facility] Urine leukocyte esterase detection by dipstick Urine leukocyte esterase detection by dipstick 1+ NEGATIVE 11/28/2017 [facility] Urine nitrite detection Urine nitrite detection NEGATIVE NEGATIVE 11/28/2017 [facility] Urine pH measurement by automated test strip Urine pH measurement by automated test strip 7 5 - 7 11/28/2017 [facility] Urine protein measurement by test strip (mass/volume) Urine protein measurement by test strip (mass/volume) NEGATIVE NEGATIVE 11/28/2017 [facility] Urine total bilirubin measurement (mass/volume) Urine total bilirubin measurement (mass/volume) NEGATIVE NEGATIVE 11/28/2017 [facility] Urine urobilinogen measurement by test strip (mass/volume) Urine urobilinogen measurement by test strip (mass/volume) 0.2 0.2 - 1 11/28/2017 [facility] Serum or plasma creatine kinase MB measurement (mass/volume) Serum or plasma creatine kinase MB measurement (mass/volume) 20.10 0 - 5.0 11/27/2017 [facility] Serum or plasma creatine kinase measurement (enzymatic activity/volume) Serum or plasma creatine kinase measurement (enzymatic activity/volume) 1724 29 - 168 11/27/2017 [facility] Serum or plasma thyrotropin measurement by detection limit <=0.005 miu/l (units/volume) Serum or plasma thyrotropin measurement by detection limit <=0.005 miu/l (units/volume) 4.402 0.350 - 4.940 11/27/2017 [facility] Serum or plasma thyroxine (T4) free measurement (mass/volume) Serum or plasma thyroxine (T4) free measurement (mass/volume) 1.18 0.9 - 1.8 11/27/2017 [facility] Troponin I measurement by highly sensitive enzyme immunoassay Troponin I measurement by highly sensitive enzyme immunoassay 0.108 0 - 0.300 11/27/2017 [facility] Serum or plasma cholesterol in HDL measurement (mass/volume) Serum or plasma cholesterol in HDL measurement (mass/volume) 55 40 - 60 11/25/2017 [facility] Serum or plasma cholesterol in LDL measurement (mass/volume) Serum or plasma cholesterol in LDL measurement (mass/volume) 105 60 - 130 11/25/2017 [facility] Serum or plasma cholesterol measurement (mass/volume) Serum or plasma cholesterol measurement (mass/volume) 172 0 - 199 11/25/2017 [facility] Serum or plasma total cholesterol/cholesterol in HDL mass ratio Serum or plasma total cholesterol/cholesterol in HDL mass ratio 3.1 3.0 - 3.6 11/25/2017 [facility] Serum or plasma triglyceride measurement (mass/volume) Serum or plasma triglyceride measurement (mass/volume) 58 0 - 149 11/25/2017 [facility] Bacterial urine culture Bacterial urine culture Urine Culture [facility] Pathology Reports No Data Provided for This Section Diagnostic Reports No Data Provided for This Section Consultation Notes No Data Provided for This Section Discharge Summaries No Data Provided for This Section History and Physicals No Data Provided for This Section Vital Signs Vital Sign Value Date Comments Source BMI Calculated 22.02 04/15/2018 [facility] Weight 51.989 04/15/2018 [facility] Height 153.67 cm 04/15/2018 [facility] Systolic (mm Hg) 148 04/15/2018 [facility] Diastolic (mm Hg) 72 04/15/2018 [facility] Heart Rate 55 04/15/2018 [facility] Temperature Oral (F) 98.5 F 02/07/2013 [facility] Respitory Rate 18 02/07/2013 [facility] Heart Rate 59 02/07/2013 [facility] Diastolic (mm Hg) 76 02/07/2013 [facility] Systolic (mm Hg) 173 02/07/2013 [facility] Height 160.02 cm 02/06/2013 [facility] Weight 61.364 02/06/2013 [facility] Systolic (mm Hg) 158 02/06/2013 [facility] Diastolic (mm Hg) 80 02/06/2013 [facility] Temperature Oral (F) 98.5 F 02/06/2013 [facility] Heart Rate 62 02/06/2013 [facility] Respitory Rate 18 02/06/2013 [facility] Encounters Location Location Details Encounter Type Encounter Number Reason For Visit Attending Provider ADM Date DC Date Status Source [facility] Emergency [id number] CARMEN UMAÑA 02/06/2013 02/06/2013 Discharged [facility] Discharged Inpatient [id number] TRAY SCHAFFER MD 11/27/2017 12/05/2017 [facility] Neurology [facility] Phone Message [id number] 02/21/2018 02/23/2018 [facility] Outpatient [id number] [facility] 04[facility]15/2018 Active [facility] Neurology [facility] Outpatient [id number] [facility] 04/15/2018 04/16/2018 [facility] Neurology [facility] Ambulatory Pre-Reg [id number] [facility] 04/15/2018 04/15/2018 [facility] Neurology [facility] Phone Message [id number] 04/25/2018 04/27/2018 [facility] Outpatient [id number] [facility] 07/09/2018 Active [facility] Neurology [facility] Outpatient [id number] [facility] 07/09/2018 07/10/2018 [facility] Outpatient [id number] [facility] 11/04/2018 Active [facility] Procedures Procedure Code Date Perfomer Comments Source Magnetic resonance imaging of cervical spine without contrast [id number] 11/28/2017 [facility] Magnetic resonance imaging of lumbar spine without contrast [id number] 11/26/2017 [facility] MRI jnt of lwr extre w/o dye 44768 11/26/2017 [facility] Magnetic resonance imaging of brain without contrast [id number] 11/24/2017 [facility] Cataract surgery [id number] [facility] Right heart catheterization [id number] [facility] Assessment and Plan No Data Provided for This Section Plan of Care Plan of Care Date Source Discharge Date 12/05/17 4:33pm Disposition HOME, SELF-CARE Instructions/Education Provided TIA Prescriptions See Medication Section Referrals JAMIA,EBENEZER DO (Family Practice) Order Date: 2 Weeks Entered Date: 12/05/2017 1:06pm Address: [address] [place] [address] [phone] Additional Instructions/Education ACTIVITY TOLERATED LOW SODIUM DIET TOLERATED FOLLOW UP WITH YOUR PRIMARY CARE PHYSICIAN IN 1-2 WEEKS. 12/05/2017 [facility] Social History Social History Date Source Social History TypeResponse Substance Abuse Use: None. Employment/School Status: Retired. Alcohol Never Smoking Status Never smoker; Exposure to Tobacco Smoke None; Cigarette Smoking Last 365 Days No; Reg Smoking Cessation Counseling Yes entered on: 04/15/18 04/15/2018 [facility] Smoking Status Start Date Stop Date Never Smoker 12/05/2017 [facility] Family History No Data Provided for This Section Advance Directives Order Name Results Value Date Source Advance Directives Advance Directives Directive Response Recorded Date/Time Does the patient have an advance directive? No 11/24/17 8:55am If yes, is advance directive on file with [facility]? No 11/24/17 8:55am If not on file with [facility] will patient provide a copy? No 11/24/17 8:55am Do you have a Directive to Physician? No 11/24/17 6:14am Do you have a Medical Power of Rn Labor And Delivery? No 11/24/17 6:14am Do you have an [...] rights and responsibilities? Yes 11/24/17 6:14am 12/05/2017 [facility] Functional Status No Data Provided for This Section
--- OUTSIDE RECORDS SUMMARY | 2018-09-22 12:49 | XMS REPORT | Clinical Summary ---
Author Author [facility] Address Unknown Phone Unavailable Care Team Providers Care Pathology Technician Name Role Phone Sharpless PCP Allergies Not [...] Not on file Results Not on fileafter 09/21/2017 Insurance Payer Benefit Subscriber ID Type Phone Address Plan / Group HU[employer] - MEDICARE MGD HU[employer] xxxxxxxxx [facility] MEDICARE Contracted ADV
[2018-09-22] MEDS ORDERED: SODIUM CHLORIDE 0.9% 500ML 500 ML IV STA (13:19)
[2018-09-22] MEDS ORDERED: ONDANSETRON HCL INJ 2MG/ML 2ML 2 MG/ML VIAL IV ONE (13:30)
[2018-09-22] MEDS ORDERED: FAMOTIDINE 20 MG/2 ML VIAL IV ONE (13:30)
[2018-09-22] MEDS ORDERED: KETOROLAC TROMETHAMINE 30 MG/ML VIAL IV ONE (13:30)
[2018-09-22 13:55] LABS: BASOPHILS % 0.3 % (0.0-1.0); EOSINOPHILS % 0.1 % (0.0-6.0); HEMATOCRIT 38.6 % (34.2-44.1); LYMPHOCYTES # (AUTO) 1.7 (1.0-3.2); LYMPHOCYTES % 12.6 % (18.0-39.1); MEAN CORPUSCULAR HGB CONC 33.7 g/dL (31-35); MEAN CORPUSCULAR VOLUME 92.1 fL (81-99); MONOCYTES # (AUTO) 1.2 (0.2-0.8); MONOCYTES % 8.4 % (4.4-11.3); NEUTROPHILS # (AUTO) 10.4 (2.1-6.9); NEUTROPHILS % 75.8 % (38.7-80.0); PLATELET COUNT 345 x10e3/uL (140-360); RED BLOOD COUNT 4.19 x10e6/uL (3.6-5.1); RED CELL DISTRIBUTION WIDTH 13.1 % (11.7-14.4)
[2018-09-22 14:00] LABS: CLARITY,URINE CLEAR (CLEAR); COLOR,URINE YELLOW (YELLOW)
[2018-09-22 14:02] LABS: KETONES,URINE NEGATIVE (NEGATIVE); LEUKOCYTE ESTERASE ,URINE NEGATIVE (NEGATIVE); NITRITE,URINE NEGATIVE (NEGATIVE); PROTEIN,URINE DIPSTICK TRACE (NEGATIVE)
[2018-09-22 14:03] LABS: BILIRUBIN,URINE NEGATIVE (NEGATIVE); URINE UROBILINOGEN 0.2 mg/dL (0.2 - 1)
[2018-09-22] MEDS ORDERED: ATORVASTATIN CA20 MG PO (14:05)
[2018-09-22] MEDS ORDERED: XARELTO20 MG PO (14:05)
[2018-09-22] MEDS ORDERED: ACETAMINOPHEN325 M1 PO (14:09)
[2018-09-22] MEDS ORDERED: ULTRAM 50MG50 MG PO (14:09)
[2018-09-22 14:14] LABS: ALBUMIN 3.4 g/dL (3.5-5.0); ANION GAP 15.8 mmol/L (8-16); CALCIUM 9.1 mg/dL (8.4-10.2); CREATININE, SERUM 1.06 mg/dL (0.57-1.11); POTASSIUM 3.8 mmol/L (3.5-5.1)
[2018-09-22 14:22] LABS: BACTERIA,URINE MANY /HPF; EPITHELIAL CELLS,URINE MODERATE /LPF; RBC,URINE 21-50 /HPF (0-5)
[2018-09-22] MEDS ORDERED: DIPHENHYDRAMINE HCL INJ 50 MG/ML VIAL IV PRN (14:30)
[2018-09-22] MEDS ORDERED: IBUPROFEN 200 MG TAB PO PRN (14:30)
[2018-09-22] MEDS ORDERED: ZOLPIDEM TARTRATE 5 MG TAB PO PRN (14:30)
--- OUTSIDE RECORDS SUMMARY | 2018-09-22 14:49 | XMS REPORT | Clinical Summary ---
Author Author [facility] Address Unknown Phone Unavailable Care Team Providers Care Auto Bumper Straightener Name Role Phone Sharpless PCP Allergies Not [...] Group HU[employer] - MEDICARE MGD [employer]NA xxxxxxxxx [facility] MEDICARE Contracted ADV
--- OUTSIDE RECORDS SUMMARY | 2018-09-22 14:49 | XMS REPORT | Clinical Summary ---
Author Author [facility] Address Unknown Phone Unavailable Care Team Providers Care Ethical Hacker Name Role Phone Carter Corcoran DO PCP Allergies Comments Active Allergy Reactions Severity Noted Date Codeine Other (See 05/22/2016 Comments) Erythromycin GI 05/22/2016 Intolerance Oxycodone Rash Low 05/22/2016 [id number] Medications End Date Status Medication Sig Dispensed [...] HUMANA xxxxxxxxx 2012-P MEDICARE resent PPO/PFFS/E RS [facility] Advance Directives Patient has advance care planning documents on file. For more information, clive e contact: Jama Sandy [address] [place] [address]
[2018-09-22] MEDS: CEFTRIAXONE SOD 1 GM/NS 50 ML 50 ML IV SCH (14:50)
--- OUTSIDE RECORDS SUMMARY | 2018-09-22 14:50 | XMS REPORT | Continuity of Care Document ---
Author Author [employer] Organization [employer] Address Unknown Phone Unavailable Care Team Providers Care [employer] Consultant Name Role Phone [employer] Unavailable Unavailable Problems Problem Status Onset Date Classification Date Reported Comments Source ACUTE ELIJAH GLAUCOMA Active 02/01/2013 [facility] HTN - Hypertension Resolved Problem 09/12/2018 [facility] Hypothyroid Resolved Problem 09/12/2018 [facility] Parkinsonism Active Problem 09/12/2018 [facility] Medications Medication Details Route Status Patient Instructions Ordering Provider Order Date Source AMIODarone 200 mg oral tablet 200 mg=1 tab, PO, Daily, 0 Refill(s) Active 04/15/2018 [facility] Aspirin 81 MG Enteric Coated Tablet 81 mg=1 tab, PO, Daily, # 90 tab, 3 Refill(s) Active 04/15/2018 [facility] metoprolol tartrate 25 mg oral tablet 25 mg=1 tab, PO, BID, 0 Refill(s) Active 04/15/2018 [facility] atorvastatin 20 mg oral tablet 20 mg=1 tab, PO, Daily, 0 Refill(s) Active 04/15/2018 [facility] rivaroxaban 20 MG Oral Tablet [Xarelto] 20 mg=1 tab, PO, QPM, # 30 tab, 3 Refill(s) Active 04/15/2018 [facility] Levothyroxine Sodium 0.175 MG Oral Tablet [Synthroid] 175 microgram=1 tab, PO, Daily, 0 Refill(s) Active 04/15/2018 [facility] Acetaminophen 325 MG Oral Capsule [Tylenol] 325 mg=1 cap, PO, TID, 0 Refill(s) Active 04/15/2018 [facility] clopidogrel 75 mg oral tablet 75 mg=1 tab, PO, Daily, 0 Refill(s) Active 04/15/2018 [facility] Aleve , As Needed Active 12/05/2017 [facility] Nebivolol Hcl (Bystolic) 2.5 Mg Tablet, Oral Daily Active 12/05/2017 [facility] Cyclobenzaprine Hcl (Flexeril) 10 Mg Tablet, 10 Mg Oral As Needed Active 11/24/2017 [facility] Levothyroxine Sodium (Synthroid) 137 Mcg Tablet, 137 Mcg Oral Daily Active 11/24/2017 [facility] Nebivolol Hcl (Bystolic) 10 Mg Tablet, 10 Mg Oral Daily Active 11/24/2017 [facility] fluorescein ophthalmic 1 mg test 1 appl, Route: Each Affected Eye, ONCE, Start date: 02/06/13 15:40:00, Stop date: 02/06/13 15:40:00 Inactive [place] 02/06/2013 [facility] proparacaine ophthalmic 0.5% solution 2 drp, Route: Each Affected Eye, ONCE, Start date: 02/06/13 15:40:00, Stop date: 02/06/13 15:40:00 Inactive [place] 02/06/2013 [facility] Amiodarone Hcl 200 Mg Tablet Daily Active [facility] Ciprofloxacin Hcl (Cipro) 500 Mg Tablet Twice A Day Active [facility] Levothyroxine Sodium 75 Mcg Tablet Daily Active [facility] Metoprolol Tartrate 25 Mg Tablet Twice A Day Active [facility] Allergies, Adverse Reactions, Alerts Substance Category Reaction Severity Reaction type Status Date Reported Comments Source oxycodone HCl RASH Intermediate Allergy to Substance Active 08/28/2011 [facility] Oxycodone Terephthalate RASH Intermediate Allergy to Substance Active 08/28/2011 [facility] Codeine VOMITING Intermediate Allergy to Substance Active 08/28/2011 [facility] ERTHROMYCIN VOMITING Intermediate Allergy to Substance Active 08/28/2011 [facility] codeine Assertion Drug allergy Active [facility] erythromycin Assertion Drug allergy Active [facility] Percodan Assertion Drug allergy Active [facility] Immunizations No Data Provided for This Section Results Order Name Results Value Reference Range Date Interpretation Comments Source Estimated glomerular filtration rate (GFR) determination Estimated glomerular filtration rate (GFR) determination 59 60 12/05/2017 [facility] Glucose measurement Glucose measurement 96 74 - 118 12/05/2017 [facility] Serum or plasma anion gap Serum or plasma anion gap 15.0 8 - 16 12/05/2017 [facility] Serum or plasma calcium measurement (mass/volume) Serum or plasma calcium measurement (mass/volume) 9.4 8.4 - 10.2 12/05/2017 [facility] Serum or plasma carbon dioxide, total measurement (moles/volume) Serum or plasma carbon dioxide, total measurement (moles/volume) 26 22 - 29 12/05/2017 [facility] Serum or plasma chloride measurement (moles/volume) Serum or plasma chloride measurement (moles/volume) 106 98 - 107 12/05/2017 [facility] Serum or plasma creatinine measurement (mass/volume) Serum or plasma creatinine measurement (mass/volume) 0.94 0.57 - 1.11 12/05/2017 [facility] Serum or plasma potassium measurement (moles/volume) Serum or plasma potassium measurement (moles/volume) 3.0 3.5 - 5.1 12/05/2017 [facility] Serum or plasma sodium measurement (moles/volume) Serum or plasma sodium measurement (moles/volume) 144 136 - 145 12/05/2017 [facility] Serum or plasma urea nitrogen measurement (mass/volume) Serum or plasma urea nitrogen measurement (mass/volume) 10 7 - 26 12/05/2017 [facility] Serum or plasma urea nitrogen/creatinine mass ratio Serum or plasma urea nitrogen/creatinine mass ratio 11 6 - 25 12/05/2017 [facility] Clostridium difficile A and B toxin assay Clostridium difficile A and B toxin assay NEGATIVE NEGATIVE 12/02/2017 [facility] Automated blood basophil count (count/volume) Automated blood basophil count (count/volume) 0.1 0.0 - 0.1 12/02/2017 [facility] Automated blood basophil count as percentage of total leukocytes Automated blood basophil count as percentage of total leukocytes 0.6 0.0 - 1.0 12/02/2017 [facility] Automated blood eosinophil count Automated blood eosinophil count 0.2 0.0 - 0.4 12/02/2017 [facility] Automated blood eosinophil count as percentage of total leukocytes Automated blood eosinophil count as percentage of total leukocytes 3.1 0.0 - 6.0 12/02/2017 [facility] Automated blood hematocrit (volume fraction) Automated blood hematocrit (volume fraction) 36.4 34.2 - 44.1 12/02/2017 [facility] Automated blood lymphocyte count as percentage ot total leukocytes Automated blood lymphocyte count as percentage ot total leukocytes 34.8 18.0 - 39.1 12/02/2017 [facility] Automated blood monocyte count as percentage of total leukocytes Automated blood monocyte count as percentage of total leukocytes 8.9 4.4 - 11.3 12/02/2017 [facility] Automated blood neutrophil count Automated blood neutrophil count 4.1 2.1 - 6.9 12/02/2017 [facility] Automated blood platelet count (count/volume) Automated blood platelet count (count/volume) 227 140 - 360 12/02/2017 [facility] Automated blood segmented neutrophil count as percentage of total leukocytes Automated blood segmented neutrophil count as percentage of total leukocytes 52.3 38.7 - 80.0 12/02/2017 [facility] Automated erythrocyte mean corpuscular hemoglobin (mass per erythrocyte) Automated erythrocyte mean corpuscular hemoglobin (mass per erythrocyte) 30.2 28 - 32 12/02/2017 [facility] Automated erythrocyte mean corpuscular hemoglobin concentration measurement (mass/volume) Automated erythrocyte mean corpuscular hemoglobin concentration measurement (mass/volume) 33.5 31 - 35 12/02/2017 [facility] Automated erythrocyte mean corpuscular volume Automated erythrocyte mean corpuscular volume 90.1 81 - 99 12/02/2017 [facility] Blood erythrocytes automated count (number/volume) Blood erythrocytes automated count (number/volume) 4.04 3.6 - 5.1 12/02/2017 [facility] Blood hemoglobin measurement (moles/volume) Blood hemoglobin measurement (moles/volume) 12.2 12.0 - 16.0 12/02/2017 [facility] Blood leukocytes automated count (number/volume) Blood leukocytes automated count (number/volume) 7.84 4.8 - 10.8 12/02/2017 [facility] Blood lymphocytes count (number/volume) Blood lymphocytes count (number/volume) 2.7 1.0 - 3.2 12/02/2017 [facility] Blood monocytes automated count (number/volume) Blood monocytes automated count (number/volume) 0.7 0.2 - 0.8 12/02/2017 [facility] Red Cell Distribution Width 13.7 11.7 - 14.4 12/02/2017 [facility] IM GRANULOCYTES % 0.3 0.0 - 1.0 12/02/2017 [facility] Absolute Immature Granulocyte (auto 0.02 0 - 0.1 12/02/2017 [facility] Automated urine sediment leukocyte count by microscopy (number/high power field) Automated urine sediment leukocyte count by microscopy (number/high power field) <10 0 - 5 11/28/2017 [facility] Bacteria detection in urine sediment by light microscopy Bacteria detection in urine sediment by light microscopy RARE NONE 11/28/2017 [facility] Epithelial cells detection in urine sediment by light microscopy Epithelial cells detection in urine sediment by light microscopy FEW NONE 11/28/2017 [facility] Erythrocytes detection in urine sediment by light microscopy Erythrocytes detection in urine sediment by light microscopy <20 0 - 5 11/28/2017 [facility] Specific gravity of Urine by Test strip Specific gravity of Urine by Test strip 1.005 1.010 - 1.025 11/28/2017 [facility] Urine clarity Urine clarity SL CLOUDY CLEAR 11/28/2017 [facility] Urine color determination Urine color determination YELLOW YELLOW 11/28/2017 [facility] Urine erythrocytes detection Urine erythrocytes detection 2+ NEGATIVE 11/28/2017 [facility] Urine glucose detection Urine glucose detection NEGATIVE NEGATIVE 11/28/2017 [facility] Urine ketones detection by automated test strip Urine ketones detection by automated test strip TRACE NEGATIVE 11/28/2017 [facility] Urine leukocyte esterase detection by dipstick Urine leukocyte esterase detection by dipstick 1+ NEGATIVE 11/28/2017 [facility] Urine nitrite detection Urine nitrite detection NEGATIVE NEGATIVE 11/28/2017 [facility] Urine pH measurement by automated test strip Urine pH measurement by automated test strip 7 5 - 7 11/28/2017 [facility] Urine protein measurement by test strip (mass/volume) Urine protein measurement by test strip (mass/volume) NEGATIVE NEGATIVE 11/28/2017 [facility] Urine total bilirubin measurement (mass/volume) Urine total bilirubin measurement (mass/volume) NEGATIVE NEGATIVE 11/28/2017 [facility] Urine urobilinogen measurement by test strip (mass/volume) Urine urobilinogen measurement by test strip (mass/volume) 0.2 0.2 - 1 11/28/2017 [facility] Serum or plasma creatine kinase MB measurement (mass/volume) Serum or plasma creatine kinase MB measurement (mass/volume) 20.10 0 - 5.0 11/27/2017 [facility] Serum or plasma creatine kinase measurement (enzymatic activity/volume) Serum or plasma creatine kinase measurement (enzymatic activity/volume) 1724 29 - 168 11/27/2017 [facility] Serum or plasma thyrotropin measurement by detection limit <=0.005 miu/l (units/volume) Serum or plasma thyrotropin measurement by detection limit <=0.005 miu/l (units/volume) 4.402 0.350 - 4.940 11/27/2017 [facility] Serum or plasma thyroxine (T4) free measurement (mass/volume) Serum or plasma thyroxine (T4) free measurement (mass/volume) 1.18 0.9 - 1.8 11/27/2017 [facility] Troponin I measurement by highly sensitive enzyme immunoassay Troponin I measurement by highly sensitive enzyme immunoassay 0.108 0 - 0.300 11/27/2017 [facility] Serum or plasma cholesterol in HDL measurement (mass/volume) Serum or plasma cholesterol in HDL measurement (mass/volume) 55 40 - 60 11/25/2017 [facility] Serum or plasma cholesterol in LDL measurement (mass/volume) Serum or plasma cholesterol in LDL measurement (mass/volume) 105 60 - 130 11/25/2017 [facility] Serum or plasma cholesterol measurement (mass/volume) Serum or plasma cholesterol measurement (mass/volume) 172 0 - 199 11/25/2017 [facility] Serum or plasma total cholesterol/cholesterol in HDL mass ratio Serum or plasma total cholesterol/cholesterol in HDL mass ratio 3.1 3.0 - 3.6 11/25/2017 [facility] Serum or plasma triglyceride measurement (mass/volume) Serum or plasma triglyceride measurement (mass/volume) 58 0 - 149 11/25/2017 [facility] Bacterial urine culture Bacterial urine culture Urine Culture [facility] Pathology Reports No Data Provided for This Section Diagnostic Reports No Data Provided for This Section Consultation Notes No Data Provided for This Section Discharge Summaries No Data Provided for This Section History and Physicals No Data Provided for This Section Vital Signs Vital Sign Value Date Comments Source BMI Calculated 22.02 04/15/2018 [facility] Weight 51.989 04/15/2018 [facility] Height 153.67 cm 04/15/2018 [facility] Systolic (mm Hg) 148 04/15/2018 [facility] Diastolic (mm Hg) 72 04/15/2018 [facility] Heart Rate 55 04/15/2018 [facility] Temperature Oral (F) 98.5 F 02/07/2013 [facility] Respitory Rate 18 02/07/2013 [facility] Heart Rate 59 02/07/2013 [facility] Diastolic (mm Hg) 76 02/07/2013 [facility] Systolic (mm Hg) 173 02/07/2013 [facility] Height 160.02 cm 02/06/2013 [facility] Weight 61.364 02/06/2013 [facility] Systolic (mm Hg) 158 02/06/2013 [facility] Diastolic (mm Hg) 80 02/06/2013 [facility] Temperature Oral (F) 98.5 F 02/06/2013 [facility] Heart Rate 62 02/06/2013 [facility] Respitory Rate 18 02/06/2013 [facility] Encounters Location Location Details Encounter Type Encounter Number Reason For Visit Attending Provider ADM Date DC Date Status Source [facility] Emergency [id number] CARMEN UMAÑA 02/06/2013 02/06/2013 Discharged [facility] Discharged Inpatient [id number] TRAY SCHAFFER MD 11/27/2017 12/05/2017 [facility] Phone Message [id number] 02/21/2018 02/23/2018 [facility] Outpatient [id number] [facility] 04/15/2018 Active [facility] Outpatient [id number] [facility] 04/15/2018 04/16/2018 [facility] Neu[facility] Ambulatory Pre-Reg [id number] [facility] 04/15/2018 04/15/2018 [facility] Phone Message [id number] 04/25/2018 04/27/2018 [facility] Outpatient [id number] [facility] 07/09/2018 Active [facility] Outpatient [id number] [facility] 07/09/2018 07/10/2018 [facility] Outpatient [id number] [facility] 11/04/2018 Active [facility] Procedures Procedure Code Date Perfomer Comments Source Magnetic resonance imaging of cervical spine without contrast [id number] 11/28/2017 [facility] Magnetic resonance imaging of lumbar spine without contrast [id number] 11/26/2017 [facility] MRI jnt of lwr extre w/o dye 20339 11/26/2017 [facility] Magnetic resonance imaging of brain without contrast [id number] 11/24/2017 [facility] Cataract surgery [id number] [facility] Right heart catheterization [id number] [facility] Assessment and Plan No Data Provided for This Section Plan of Care Plan of Care Date Source Discharge Date 12/05/17 4:33pm Disposition HOME, SELF-CARE Instructions/Education Provided TIA Prescriptions See Medication Section Referrals JAMIA,EBENEZER DO (Family Practice) Order Date: 2 Weeks Entered Date: 12/05/2017 1:06pm Address: [address] [place] [id number] Additional Instructions/Education ACTIVITY TOLERATED LOW SODIUM DIET TOLERATED FOLLOW UP WITH YOUR PRIMARY CARE PHYSICIAN IN 1-2 WEEKS. 12/05/2017 [facility] Social History Social History Date Source Social History TypeResponse Substance Abuse Use: None. Employment/School Status: Retired. Alcohol Never Smoking Status Never smoker; Exposure to Tobacco Smoke None; Cigarette Smoking Last 365 Days No; Reg Smoking Cessation Counseling Yes entered on: 04/15/18 04/15/2018 [facility] Smoking Status Start Date Stop Date Never Smoker 12/05/2017 [facility] Family History No Data Provided for This Section Advance Directives Order Name Results Value Date Source Advance Directives Advance Directives Directive Response Recorded Date/Time Does the patient have an advance directive? No 11/24/17 8:55am If yes, is advance directive on file with [facility]? No 11/24/17 8:55am If not on file with [facility] will patient provide a copy? No 11/24/17 8:55am Do you have a Directive to Physician? No 11/24/17 6:14am Do you have a Medical Power of Inspector [employer]? No 11/24/17 6:14am Do you have an [...] rights and responsibilities? Yes 11/24/17 6:14am 12/05/2017 [facility] Functional Status No Data Provided for This Section
[2018-09-22] MEDS: FAMOTIDINE 20 MG/2 ML VIAL IV SCH (16:34)
[2018-09-22] MEDS: TRAMADOL HCL 50 MG TAB PO PRN ×2 (16:34→22:34)
[2018-09-22] MEDS ORDERED: CEFTRIAXONE SOD 1 GM VIAL IV SCH (21:00)
--- NOTE | 2018-09-22 21:30 | NUR ---
Patient unable to pass urine. Bladder scan showed 750 mL. Straight cath per orders with 1100 mL results
[2018-09-22] MEDS: IBUPROFEN 400 MG TAB PO PRN (22:34)
[2018-09-23] MEDS: CEFTRIAXONE SOD 1 GM/NS 50 ML 50 ML IV SCH ×2 (02:41→15:35)
[2018-09-23 02:42] VITALS: BP 145/73
[2018-09-23] MEDS: TRAMADOL HCL 50 MG TAB PO PRN (05:53)
[2018-09-23] MEDS: IBUPROFEN 400 MG TAB PO PRN (05:53)
[2018-09-23 07:40] VITALS: BP 156/68
[2018-09-23 08:15] VITALS: BP 156/68
--- NOTE | 2018-09-23 08:16 | NUR ---
patient resting bed, not in any distress, ate 25% of breakfast, continue monitoring, call light in reach
[2018-09-23] MEDS: FAMOTIDINE 20 MG/2 ML VIAL IV SCH ×2 (08:24→16:59)
[2018-09-23] MEDS ORDERED: HYDROMORPHONE 1MG/1ML INJ IV PRN (10:30)
[2018-09-23] MEDS: HYDROMORPHONE 2MG/ML 2 MG/ML ML IV PRN ×3 (11:11→21:43)
[2018-09-23] MEDS: ONDANSETRON HCL INJ 2MG/ML 2ML 2 MG/ML VIAL IV PRN ×3 (11:12→21:43)
[2018-09-23 11:30] VITALS: BP 179/84
[2018-09-23 15:27] VITALS: BP 142/75
--- NOTE | 2018-09-23 15:35 | NUR ---
Call recvd from Dr Wise that patient should be consulted with orthopedic, notified DR Rob Muller, new order recvd to consult Dr Tanner
[2018-09-23] MEDS: METOPROLOL TARTRATE 25 MG TAB PO SCH (16:59)
--- NOTE | 2018-09-23 17:22 | NUR ---
PATIENT OFF THE UNIT FOR MRI, STABLE
--- NOTE | 2018-09-23 19:00 | NUR ---
RECEIVED REPORT FROM DAY NURSE. PATIENT IS RESTING COMFORTABLY IN BED. BED IS IN LOWEST POSITION AND CALL CHAVEZ IS WILL CONTINUE TO MONITOR PATIENT
--- NOTE | 2018-09-23 19:45 | NUR ---
Patient has been bladder scanned. bladder scan shows that patient is holding 392cc of urine. Will straight cath patient in accordance with doctors orders.
[2018-09-23 20:00] VITALS: BP 149/73
[2018-09-23] MEDS: ATORVASTATIN 20 MG TAB PO SCH (21:42)
[2018-09-24] VITALS (8 sets, daily range): BP systolic 116–182; BP diastolic 58–92
[2018-09-24] MEDS: CEFTRIAXONE SOD 1 GM/NS 50 ML 50 ML IV SCH ×2 (02:22→15:10)
[2018-09-24] MEDS: ONDANSETRON HCL INJ 2MG/ML 2ML 2 MG/ML VIAL IV PRN ×3 (02:40→19:45)
[2018-09-24] MEDS: HYDROMORPHONE 2MG/ML 2 MG/ML ML IV PRN ×3 (02:40→19:45)
[2018-09-24] MEDS: LEVOTHYROXINE SODIUM 75 MCG TAB PO SCH (06:18)
--- NOTE | 2018-09-24 06:48 | NUR ---
report given to day nurse. patient is resting comfortably in bed. bed is in lowest position and call jiang is within reach. will continue to monitor patient.
[2018-09-24] MEDS: FAMOTIDINE 20 MG/2 ML VIAL IV SCH ×2 (08:02→18:32)
--- NOTE | 2018-09-24 08:30 | Diagnostic Imaging Report ---
MRI SPINE LUMBAR WO HISTORY: Low back pain, left hip pain COMPARISON: Lumbar spine CT 09/20/2018 TECHNIQUE: Sagittal T1, sagittal T2, sagittal STIR, axial T2, coronal T2, and axial proton density weighted images of the lumbar spine were obtained without contrast. DISCUSSION: Number of non-rib bearing lumbar vertebral bodies: 5. Alignment: Normal lordosis. No scoliosis. Vertebrae: Acute or subacute minimally displaced bilateral sacral ala fractures, left greater than right, involve the S2 vertebral body. There is associated local marrow and presacral edema. Associated mild bilateral gluteal muscle edema is present. Small amount of fluid is also seen along the deep iliacus muscles. No additional fractures, infection or neoplasm. Conus medullaris: Normal, ends at T12-L1. Cauda equina: No masses or arachnoiditis. Posterior paraspinal muscles: Well preserved. There is mild paraspinal muscle edema in the lower lumbar spine. Soft tissues: A few small bilateral T2 hyperintense renal lesions are likely cysts. Mild multilevel disc degeneration is present. T12-L1: Patent canal and foramina. L1-L2: Mild canal stenosis due to disc bulge, ligamentum flavum thickening, and superimposed 4 mm left paracentral disc extrusion (with up to 7 mm inferior migration). The left lateral recess is slightly effaced. No significant foraminal stenosis. L2-L3: Mild canal stenosis due to disc bulge and ligamentum flavum thickening. No significant foraminal stenosis. L3-L4: Mild canal stenosis due to disc bulge and ligamentum flavum thickening. Mild left foraminal stenosis due to asymmetry of the disc bulge. No significant right foraminal stenosis. L4-L5: Moderate canal stenosis due to disc bulge and ligamentum flavum thickening. Both lateral recesses are effaced. Mild bilateral foraminal stenoses due to disc bulge and facet arthrosis. L5-S1: Disc bulge without significant canal or foraminal stenosis. IMPRESSION: 1. Acute or subacute minimally displaced bilateral sacral ala fractures, left greater than right, involve the S2 vertebral body. 2. Mild multilevel disc degeneration. 3. Multilevel degenerative canal stenoses - moderate at L4-L5. 4. Mild left L3-L4 and bilateral L4-L5 degenerative foraminal stenoses. Signed by: Dr. Irvin Miguel M.D. on 09/24/2018 8:26 AM
[2018-09-24] MEDS: DEXTROSE 5%/0.9% SOD CHL 1,000 ML IV SCH ×2 (08:50→20:59)
--- NOTE | 2018-09-24 08:50 | NUR ---
Patient tolerated half of breakfast, not in any distress,
[2018-09-24] MEDS ORDERED: AMIODARONE HCL 200 MG TAB PO SCH (09:00)
[2018-09-24] MEDS: METOPROLOL TARTRATE 25 MG TAB PO SCH ×2 (09:16→18:32)
[2018-09-24] MEDS: ASPIRIN 81 MG CHEW TAB PO SCH (09:20)
--- NOTE | 2018-09-24 09:54 | Diagnostic Imaging Report ---
MRI SACRUM WO HISTORY: Low back pain, left hip pain COMPARISON: Concurrent MRI of the lumbar spine, CT of the lumbar spine and pelvis dated 09/20/2018 TECHNIQUE: Sagittal T2, axial T1, axial proton density fat-sat, coronal proton density fat sat, and coronal T1 weighted MR images through the sacrum were obtained without contrast. FINDINGS: Acute or subacute minimally displaced bilateral sacral ala fractures, left greater than right, involve the S2 vertebral body. There is associated local marrow and presacral edema. Associated mild bilateral gluteal and iliacus muscle edema is also present. No additional fracture deformity or marrow signal abnormality is seen. The visualized joint spaces are otherwise preserved. Please refer to concurrent lumbar spine MRI for lumbar spine findings. A moderate to large amount of stool is seen in the rectum. The bladder is mildly distended. IMPRESSION: Acute or subacute minimally displaced bilateral sacral ala fractures, left greater than right, involve the S2 vertebral body. Signed by: Dr. Irvin Miguel M.D. on 09/24/2018 9:50 AM
[2018-09-24] MEDS ORDERED: MAGNESIUM HYDROXIDE 30 ML UDC PO ONE (12:00)
--- NOTE | 2018-09-24 12:31 | Diagnostic Imaging Report ---
Exam: KUB - 2 views Clinical History: Abdominal pain Comparison: CT pelvis of 09/20/2018 Findings: Nonobstructive bowel gas pattern. Increased stool burden in the transverse colon. The diaphragms are not visualized on this radiograph, however there are no secondary signs of intraperitoneal free air. No abnormal calcifications. The osseous structures appear unremarkable. Impression: Nonobstructive bowel gas pattern. Increased stool burden throughout the transverse colon. Signed by: Hoang Espinoza MD on 09/24/2018 12:27 PM
--- NOTE | 2018-09-24 15:27 | NUR ---
CM SPOKE W BEDSIDE NURSE, SHRAVAN. STATES DR. KHAN MADE PT INPT AND ORDERED BOANE SCAN AND PT EVAL DUE TO SACRAL FX. NO ORDER SEEN. SHRAVAN STATES HE WILL ENTER THE ORDER.
--- NOTE | 2018-09-24 16:58 | NUR ---
patient transferred to room 209, stable, at bed side
[2018-09-24] MEDS: RIVAROXABAN 20 MG TABLET PO SCH (18:25)
--- NOTE | 2018-09-24 18:58 | NUR ---
WALKING ROUNDS PERFORMED, RECEIVED PT (R) SIDE LAYING WITH PILLOWS UNDER (L) SIDE SEMI FOWLERS IN BED, AAOX1, RR EVEN AND NON-LABORED, ON ROOM AIR. NO S/SX OF DISTRESS NOTED. LEFT PT LAYING SEMI FOWLERS IN BED, BED IN LOW LOCKED POSITION, SIDE RAILS UPX2, CALL LIGHT AND PHONE WITHIN REACH.
--- NOTE | 2018-09-24 20:00 | NUR ---
APPLIED ALTERNATING AIR PUMP TO MATTRESS.
[2018-09-24] MEDS: ENALAPRILAT IV INJ 1.25 MG/ML VIAL IV PRN (20:59)
[2018-09-24] MEDS: ATORVASTATIN 20 MG TAB PO SCH (20:59)
[2018-09-25] VITALS (8 sets, daily range): BP systolic 107–142; BP diastolic 51–81
--- NOTE | 2018-09-25 00:20 | NUR ---
T CONTINUES TO BEND (L) ARM AND OCCLUDE IVF. PT FAMILY REQUESTING NEW IV. IV STARTED TO (L) HAND 22G. FLUSHES WITHOUT DIFFICULTY AND BLOOD RETURN NOTED. IV TO (L) HAND INTACT AND FLUSHES WITHOUT DIFFICULT AND HAS BLOOD RETURN. IV LEFT INTACT SALINE LOCKED. Addendum: 09/25/18 at 0228 by Amee Simpson RN PATIENT CONTINUES TO BEND...
--- NOTE | 2018-09-25 02:25 | NUR ---
BLADDER SCAN PERFORMED, PT NOTED TO HAVE 530ML. STRAIGHT CATH PERFORMED. 600ML DRAINED. Addendum: 09/25/18 at 0229 by Amee Simpson RN CORRECT TIME TO BE [id number]
[2018-09-25] MEDS: CEFTRIAXONE SOD 1 GM/NS 50 ML 50 ML IV SCH ×2 (02:50→15:22)
[2018-09-25] MEDS: HYDROMORPHONE 2MG/ML 2 MG/ML ML IV PRN ×4 (02:51→21:11)
[2018-09-25] MEDS: ONDANSETRON HCL INJ 2MG/ML 2ML 2 MG/ML VIAL IV PRN (02:51)
[2018-09-25] MEDS: DEXTROSE 5%/0.9% SOD CHL 1,000 ML IV SCH ×3 (03:30→20:58)
--- NOTE | 2018-09-25 04:13 | Consultation ---
DATE OF CONSULTATION: 09/24/2018 CHIEF COMPLAINT: Low back pain and difficulty ambulating. HISTORY OF PRESENT ILLNESS: This patient is a 72-year-old female, who complains of worsening low back pain over the last two weeks. The patient is currently on Dilaudid every 2 hours for her severe pain. She has difficulty giving a clear history. Her full history of present illness was obtained from her who is present. The patient's states that the patient has a prior history of low back pain. She was hospitalized at the [facility] in November of last year for a similar instance. She was seen by Neurosurgery and at the time had an MRI of her lumbar spine, cervical spine and right hip. The acute pain resolved over time. She was seen by a dedicated spinal specialist Dr. Arthur earlier this year. She was sent for physical therapy for three months. She states this did not help. She has been seen by Pain Management for lumbar spine nerve ablations, she states this has helped some. He denies any specific recent injury and states that she had a little stumble and fell into her nightstand over two weeks ago. She has not complained of any acute pain at that time. He states that she started having worsening low back pain roughly two weeks ago. He states that she started having difficulty walking and was shuffling around the house. He states that in the last 3 to 4 days that she has had trouble getting out of bed. She reported to the [facility] ER on the of this month where she had a CT scan of her pelvis and lumbar spine. She was diagnosed with bilateral sacral fractures. She was sent home and has been taking tramadol. He states that her pain continued to worsen and he brought her into the [facility] ER on the of this month. He states prior to this the worsening onset of pain was roughly two weeks ago. She ambulated independently. She participated in a daily exercise program and did [employer] videos. PAST MEDICAL HISTORY: Hypertension, coronary artery disease, Parkinson disease. PAST SURGICAL HISTORY: Cataract excision. SOCIAL HISTORY: states the patient does not smoke or drink. MEDICATIONS: See MAR. ALLERGIES: OXYCODONE, CLINDAMYCIN, CODEINE, ERYTHROMYCIN. PHYSICAL EXAMINATION: GENERAL: This is an elderly female, who is well nourished. She did not appear to be in any acute distress. She is lying in bed supine. She is awake. She is somewhat sedated. She is oriented to name, date of and place. She has some difficulty following questioning and answering questions. EXTREMITIES: Gross inspection of both lower extremities shows a neutral rotation of both legs. Limb lengths were equal. Manipulation of the pelvic crest does not reveal any instability. Passive range of motion of both hips elicit pain. She has markedly positive straight leg raises on both sides. She cries out with pain in any attempts elevating the legs. She has 4/5 dorsiflexion and plantar flexion of both feet. Distal sensation appears to be grossly intact. Examination is compromised secondary to her level of pain. IMAGING: Multiple films were obtained and reviewed. I reviewed the CT scan of the pelvis and lumbar spine from 09/20/2018. These revealed minimally displaced bilateral sacral fractures. Review of the MRI of her lumbar spine and sacrum showed the same thing. She also has moderate to severe canal stenosis at L4 and L5. She has mild canal stenosis from L1 to L4. There is some mild bilateral foraminal stenosis at L4 and L5. There does not appear to be any nerve root impingement or nerve root involvement. ASSESSMENT AND PLAN: This is a 72-year-old female with a long history of intractable low back pain. The findings were discussed at length with the . I explained that her symptoms appear to be out of proportion to her objective findings. She is requiring strong narcotics in the form of Dilaudid every 2 hours to control her pain. This makes examination of the patient and getting a clear history difficult. Her symptoms of pain cannot clearly explained by a sacral fractures that may be subacute. Her MRI was also reviewed by Dr. Wise. He deferred consultation to the General Orthopedics and the chart states that there is no need for neurosurgical care. I am going to order a whole-body bone scan just to rule out any occult pathological processes such as malignancy. Recommend tapering the patient off high-dose narcotics and mobilizing her with physical therapy. There is also some concern that the patient has had some urinary retention and is requiring straight caths. This is out of my area of expertise. Recommend consideration for a urologic consult. She is also complaining of not having a bowel movement for over a week. She is currently being treated with laxatives. This again is not my area of expertise. We will defer to Internal Medicine for further treatment. All this was discussed with the . He agrees with the plan. This case and the films were discussed and reviewed with Dr. Tanner. The films dating back a full year were reviewed. At presetn, there is nothing objective that would explain her inability to mobilize with PT. Thank you for the consultation. Dictated by Harjeet Turner PA-C MD NANCY Hankins/LALITHA /[id number]
[2018-09-25] MEDS: LEVOTHYROXINE SODIUM 75 MCG TAB PO SCH (06:16)
--- NOTE | 2018-09-25 06:16 | NUR ---
BLADDER SCAN PERFORMED, 225ML NOTED. STRAIGHT CATH PERFORMED. 300ML DRAINED.
[2018-09-25] MEDS: TRAMADOL HCL 50 MG TAB PO PRN ×2 (08:00→18:03)
[2018-09-25] MEDS: ASPIRIN 81 MG CHEW TAB PO SCH (08:02)
[2018-09-25] MEDS: FAMOTIDINE 20 MG/2 ML VIAL IV SCH (08:02)
[2018-09-25] MEDS: METOPROLOL TARTRATE 25 MG TAB PO SCH ×2 (08:21→18:03)
--- NOTE | 2018-09-25 15:14 | NUR ---
IMM SIGNED BY PT'S (PT CONFUSED), EXPLAINED TO AND PLACED ON CHART COPY OF IMM GIVEN TO PT IN CARE TRANSITIONS FOLDER
--- NOTE | 2018-09-25 17:57 | Diagnostic Imaging Report ---
Bone Scan, three-phase Reason for exam: Intractable low back pain Radiopharmaceutical: Tc-99m MDP 26 mCi Comparison: MRI sacrum 09/23/2018 Following intravenous administration of the radiopharmaceutical, dynamic flow and immediate blood pool images of the lower back and pelvis followed by 3-hour delayed spot images were obtained. Flow and blood pool images show increased tracer activity in the bilateral sacral alae, left greater than right. The delayed images show focal increased tracer in the upper sacrum centrally and in the bilateral sacral alae, left greater than right. Distribution of tracer activity in the remainder of the pelvis, hips and lower thoracic and lumbar spine is unremarkable. Mildly increased tracer is seen in the right 6th and 7th ribs anteriorly in an adjacent pattern. Impression: 1. Acute sacral insufficiency fracture. 2. Healed fractures in the right 6th and 7th ribs anteriorly. Signed by: Dr. Nereyda Connell M.D. on 09/25/2018 5:53 PM
[2018-09-25] MEDS: RIVAROXABAN 20 MG TABLET PO SCH (18:03)
[2018-09-25] MEDS: FAMOTIDINE 20 MG TAB PO SCH (18:03)
[2018-09-25] MEDS: ATORVASTATIN 20 MG TAB PO SCH (20:58)
[2018-09-26] VITALS (8 sets, daily range): BP systolic 130–180; BP diastolic 60–93
[2018-09-26] MEDS: TRAMADOL HCL 50 MG TAB PO PRN ×3 (00:11→12:05)
[2018-09-26] MEDS: HYDROMORPHONE 2MG/ML 2 MG/ML ML IV PRN ×4 (03:10→21:24)
[2018-09-26] MEDS: DEXTROSE 5%/0.9% SOD CHL 1,000 ML IV SCH ×3 (03:14→19:30)
[2018-09-26] MEDS: CEFTRIAXONE SOD 1 GM/NS 50 ML 50 ML IV SCH ×2 (03:14→13:36)
[2018-09-26] MEDS: LEVOTHYROXINE SODIUM 75 MCG TAB PO SCH (05:56)
[2018-09-26] MEDS: FAMOTIDINE 20 MG TAB PO SCH ×2 (09:29→16:56)
[2018-09-26] MEDS: ASPIRIN 81 MG CHEW TAB PO SCH (09:29)
[2018-09-26] MEDS: METOPROLOL TARTRATE 25 MG TAB PO SCH ×2 (09:30→16:56)
[2018-09-26 09:48] LABS: BASOPHILS % 0.2 % (0.0-1.0); EOSINOPHILS # (AUTO) 0.1 (0.0-0.4); EOSINOPHILS % 0.7 % (0.0-6.0); HEMATOCRIT 32.7 % (34.2-44.1); LYMPHOCYTES # (AUTO) 1.3 (1.0-3.2); MEAN CORPUSCULAR HEMOGLOBIN 31.6 pg (28-32); MEAN CORPUSCULAR HGB CONC 33.6 g/dL (31-35); MONOCYTES % 5.3 % (4.4-11.3); NEUTROPHILS # (AUTO) 16.2 (2.1-6.9); NEUTROPHILS % 85.2 % (38.7-80.0); PLATELET COUNT 287 x10e3/uL (140-360); RED BLOOD COUNT 3.48 x10e6/uL (3.6-5.1); RED CELL DISTRIBUTION WIDTH 13.2 % (11.7-14.4)
[2018-09-26 10:09] LABS: ANION GAP 9.9 mmol/L (8-16); BLOOD UREA NITROGEN 10 mg/dL (7-26); BUN/CREATININE RATIO 16 (6-25); CALCIUM 7.9 mg/dL (8.4-10.2); CARBON DIOXIDE 26 mmol/L (22-29); CHLORIDE 108 mmol/L (98-107); CREATININE, SERUM 0.62 mg/dL (0.57-1.11); EST GLOMERULAR FILTRATION RATE > 60 ML/MIN (60-); GLUCOSE 152 mg/dL (74-118); SODIUM 141 mmol/L (136-145)
[2018-09-26 10:25] LABS: POTASSIUM 2.9 mmol/L (3.5-5.1)
[2018-09-26] MEDS ORDERED: POTASSIUM CHLORIDE 20 MEQ TAB CR PO ONE (11:00)
--- NOTE | 2018-09-26 11:44 | Diagnostic Imaging Report ---
EXAMINATION: CHEST SINGLE (PORTABLE) INDICATION: Leukocytosis, trauma COMPARISON: None FINDINGS: The patient is mildly rotated to the right. TUBES and LINES: None. LUNGS: The lung volumes are low. No focal consolidation or pulmonary edema. The right lung is more radiolucent relative to the left lung, likely due to right mastectomy. PLEURA: No pleural effusion or pneumothorax. HEART AND MEDIASTINUM: There is apparent widening of the mediastinal contour with bilateral hilar prominence. The heart is not enlarged. BONES AND SOFT TISSUES: No acute fracture or dislocation. Status post right mastectomy. UPPER ABDOMEN: No free air under the diaphragm. IMPRESSION: Apparent mediastinal widening and hilar prominence. While this may be due to rotated patient positioning, CT is recommended for further evaluation. Signed by: Hoang Espinoza MD on 09/26/2018 11:41 AM
--- NOTE | 2018-09-26 11:53 | NUR ---
PT SIGNED CHOICE FOR [facility], FAXED CLINICALS TO [facility].
[2018-09-26] MEDS: POTASSIUM CHLORIDE 20 MEQ TAB CR PO SCH ×2 (13:28→16:56)
[2018-09-26] MEDS: RIVAROXABAN 20 MG TABLET PO SCH (16:56)
[2018-09-26] MEDS: ATORVASTATIN 20 MG TAB PO SCH (21:24)
[2018-09-26] MEDS: ENALAPRILAT IV INJ 1.25 MG/ML VIAL IV PRN (21:25)
[2018-09-27] VITALS (8 sets, daily range): BP systolic 149–189; BP diastolic 73–80
--- NOTE | 2018-09-27 00:03 | Consultation ---
DATE OF CONSULTATION: 09/25/2018 Urology Consultation REASON FOR CONSULTATION: Urinary retention. HISTORY OF PRESENT ILLNESS: Gilda Houser is a 72-year-old woman, who has never seen a urologist. She has had longstanding both stress and urge type urinary incontinence. She has been wearing a diaper for quite sometime. The patient has had a history of urinary tract infections as well. The patient had two falls, had severe sacral pain, reported at the hospital, she was evaluated and found to have a sacral fracture and evaluation revealed a urinary retention. She underwent straight catheterization on two occasions on the prior night with volumes obtained at 600 mL and she was unable to void. Urological consultation was subsequently sought. The patient has never had any urolithiasis. She has never had any urological surgery. PAST MEDICAL AND SURGICAL HISTORY: 1. Hypertension. 2. Coronary artery disease. 3. Parkinson disease. 4. Status post bilateral cataract surgery. 5. 2, para 2, by spontaneous vaginal delivery. SOCIAL HISTORY: The patient denies smoking, ethanol, or drug use. She has very supportive at bedside. 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 CURRENT MEDICATIONS: Please refer to the MAR. ALLERGIES: PLEASE REFER TO THE MAR. REVIEW OF SYSTEMS: Discussed as above in the history of present illness and past medical history, otherwise negative for all systems. FAMILY HISTORY: Noncontributory to the urological problems. PHYSICAL EXAMINATION: GENERAL: Elderly woman, lying in bed, in no apparent distress. She is currently not very communicative, although she is alert and awake and her seems to do the cocking on her behalf. ABDOMEN: Soft, nondistended, and nontender without costovertebral angle tenderness. Kidneys not palpable without hepatosplenomegaly. No obvious evidence of hernia. GENITOURINARY: External female genitalia unremarkable. The patient has a diaper in place that is dry. For the remaining physical examination systems, please refer the admission history and physical on the chart as well as the other consultants dictations. LABORATORY STUDIES: Urine culture was performed and it was negative. White blood cell count is 13,770, hemoglobin 13, platelets 245,000. The patient's sodium is slightly low at 135, her creatinine is 1.06. Urinalysis showed 21-50 rbc's, 6-10 wbc's, and many bacteria. Despite this finding, urine culture was negative. There are no urologically relevant radiographic studies and we will continue and try to find medical records. KUB did not show any calcifications. ASSESSMENT: 1. Probable neurogenic bladder from sacral injury and potentially from heart disease. 2. Urinary retention that recurred and persisted. 3. Urinary tract infections. 4. Mixed type urinary incontinence. 5. Leukocytosis. 6. Hyponatremia. 7. Microhematuria. PLANS: 1. I recommend placing Irene catheter at the present time if the patient's low back pain and sacral fracture would be uncomfortable to perform intermittent catheterizations five times a day. Also intermittent catheterizations are appropriate only when the patients can perform themselves and she does not seem to have the capacity at the present time to perform such function. 2. The patient's Irene catheter needs to be changed on a monthly basis until we can follow her up and evaluate her. The patient needs to follow up when she is completed with her rehabilitation and when she is an outpatient for urodynamic study. 3. At some point, cystoscopy and retrograde pyelograms would be in order to evaluate her microhematuria as well as urinary tract infection. 4. Urological radiographic studies can be performed at a later time. Thank you very much for involving us in the care of your patient. We will be happy to follow her along with you as well as an outpatient. Hermes Mondragon MD OH/MODL /[id number] cc: Carter Corcoran DO
[2018-09-27] MEDS: TRAMADOL HCL 50 MG TAB PO PRN ×3 (00:13→13:08)
[2018-09-27] MEDS: ENALAPRILAT IV INJ 1.25 MG/ML VIAL IV PRN (03:00)
[2018-09-27] MEDS: DEXTROSE 5%/0.9% SOD CHL 1,000 ML IV SCH ×2 (03:30→13:08)
[2018-09-27] MEDS: CEFTRIAXONE SOD 1 GM/NS 50 ML 50 ML IV SCH ×2 (03:51→13:45)
[2018-09-27] MEDS: HYDROMORPHONE 2MG/ML 2 MG/ML ML IV PRN ×2 (03:51→21:40)
[2018-09-27] MEDS: LEVOTHYROXINE SODIUM 75 MCG TAB PO SCH (06:08)
--- NOTE | 2018-09-27 07:00 | NUR ---
BEDSIDE SHIFT REPORT RECEIVED FROM THE LINE AND FRAME POLER RN. PT DENIES NEEDS AT THIS TIME.
[2018-09-27] MEDS: FAMOTIDINE 20 MG TAB PO SCH ×2 (08:00→16:30)
[2018-09-27] MEDS: ASPIRIN 81 MG CHEW TAB PO SCH (08:40)
[2018-09-27] MEDS: METOPROLOL TARTRATE 25 MG TAB PO SCH ×2 (08:41→16:23)
[2018-09-27 10:35] LABS: ANION GAP 13.5 mmol/L (8-16); BLOOD UREA NITROGEN 9 mg/dL (7-26); BUN/CREATININE RATIO 14 (6-25); CALCIUM 8.3 mg/dL (8.4-10.2); CARBON DIOXIDE 23 mmol/L (22-29); CHLORIDE 105 mmol/L (98-107); CREATININE, SERUM 0.64 mg/dL (0.57-1.11); EST GLOMERULAR FILTRATION RATE > 60 ML/MIN (60-); GLUCOSE 142 mg/dL (74-118); POTASSIUM 3.5 mmol/L (3.5-5.1); SODIUM 138 mmol/L (136-145)
--- NOTE | 2018-09-27 11:46 | NUR ---
IMM letter delivered and explained to pt's Yayo Houser. Pt is confused. He verbalized understanding and signed letter. Signed copy placed in chart. Copy to pt's .
[2018-09-27] MEDS ORDERED: POTASSIUM CHLORIDE 20 MEQ TAB CR PO SCH (15:00)
[2018-09-27] MEDS: RIVAROXABAN 20 MG TABLET PO SCH (16:54)
--- NOTE | 2018-09-27 17:04 | NUR ---
FAXED PT NOTES TO [facility] AND DISCHARGE IS PENDING AUTH.
--- NOTE | 2018-09-27 19:00 | NUR ---
BEDSIDE SHIFT REPORT GIVEN TO THE OPERATING MANAGER RN. PT FAMILY AT BEDSIDE. PT DENIED FURTHER NEEDS.
--- NOTE | 2018-09-27 19:10 | NUR ---
Patient visited in room during nursing rounds. Patient alert and oriented x1. On bedrest and being turned Q2hr. Irene in place for urinary retention. Pt with frequent lower back and bilateral leg pain. at bedside. Pt will be medicated accordingly. Bed alarm active. Call jiang within reach. Will monitor closely.
[2018-09-27] MEDS: ATORVASTATIN 20 MG TAB PO SCH (21:40)
[2018-09-28] VITALS (7 sets, daily range): BP systolic 133–177; BP diastolic 60–87
[2018-09-28] MEDS: CEFTRIAXONE SOD 1 GM/NS 50 ML 50 ML IV SCH ×2 (02:08→14:45)
[2018-09-28] MEDS: HYDROMORPHONE 2MG/ML 2 MG/ML ML IV PRN ×2 (04:30→21:36)
[2018-09-28] MEDS: DEXTROSE 5%/0.9% SOD CHL 1,000 ML IV SCH (04:30)
[2018-09-28] MEDS: LEVOTHYROXINE SODIUM 75 MCG TAB PO SCH (06:36)
[2018-09-28] MEDS: FAMOTIDINE 20 MG TAB PO SCH ×2 (06:36→17:06)
--- NOTE | 2018-09-28 07:30 | NUR ---
PT REC'D SLEEPING ON SEMI-FOWLERS POSITION. AT BEDSIDE, ON ROOM AIR, NO S/S OF DISTRESS. IV TO LEFT AC INTACT AND PATENT. ESCOBEDO IN PLACE FOR RETENTION. SIDE RAILS UP X3, BED IN LOWEST POSITION, AND CALL CHAVEZ WITHIN REACH.
[2018-09-28] MEDS: METOPROLOL TARTRATE 25 MG TAB PO SCH ×2 (09:27→17:07)
[2018-09-28] MEDS: ASPIRIN 81 MG CHEW TAB PO SCH (09:27)
--- NOTE | 2018-09-28 13:16 | NUR ---
ORDER RECEIVED FOR LTAC, SPOKE WITH ABOUT CHOICE HE STATES [facility] TO CONTINUE CARE WITH DR SCHAFFER. SIGNED CHOICE AND FILED IN CHART FAXED CLINICALS TO [facility] WITH [facility] CONFIRMED RECEIPT, SHE STATES SHOULD GO THROUGH WITH AUTH ON SUNDAY, COMPLETED MOT AND PUT WITH PACKET AT STATION FOR COMPLETION WITH AUTH.
--- NOTE | 2018-09-28 16:01 | Diagnostic Imaging Report ---
EXAMINATION: CHEST SINGLE (PORTABLE) INDICATION: ^Hypertension and CAD COMPARISON: Chest x-ray 09/28/2018. FINDINGS: AP view TUBES and LINES: None. LUNGS: Lungs are well inflated. Lungs are clear. There is no evidence of pneumonia or pulmonary edema. PLEURA: No pleural effusion or pneumothorax. HEART AND MEDIASTINUM: The cardiomediastinal silhouette is unremarkable. Unchanged tortuous ectatic aorta. BONES AND SOFT TISSUES: No acute osseous lesion. Soft tissues are unremarkable. UPPER ABDOMEN: No free air under the diaphragm. IMPRESSION: 1. No acute thoracic abnormality. 2. Unchanged tortuous ectatic aorta. Signed by: Dr. Juan David Longo M.D. on 09/28/2018 3:57 PM
[2018-09-28] MEDS: TRAMADOL HCL 50 MG TAB PO PRN (16:30)
[2018-09-28] MEDS: RIVAROXABAN 20 MG TABLET PO SCH (17:07)
--- NOTE | 2018-09-28 17:50 | NUR ---
PT IS ON HER LEFT SIDE FOR PAIN COMFORT. NO S/S OF DISTRESS. AT BEDSIDE. SIDE RAILS UP X2, BED IN LOWEST POSITION, AND CALL CHAVEZ WITHIN REACH.
--- NOTE | 2018-09-28 18:30 | NUR ---
PROVIDED WARM PRUNE JUICE TO HELP WITH BOWEL MOVEMENT. WILL NOTIFY MOMD TEACHER NURSE ABOUT INTERVENTION AND TO RE-ASSESS.
--- NOTE | 2018-09-28 19:05 | NUR ---
Patient visited in room during nursing rounds. Patient alert and oriented x1. On bedrest and being turned Q2hr. Irene in place for urinary retention. Pt with intermittent lower back pain. at bedside. Pt will be medicated accordingly. Bed alarm active. Call jiang within reach. Will monitor closely.
--- NOTE | 2018-09-28 19:35 | NUR ---
Paged Dr. Vallejo for possible med order for stool softener per patient's request. Awaiting on MD call back.
[2018-09-28] MEDS: ATORVASTATIN 20 MG TAB PO SCH (21:00)
[2018-09-28] MEDS: ENALAPRILAT IV INJ 1.25 MG/ML VIAL IV PRN (21:36)
[2018-09-29] VITALS (8 sets, daily range): BP systolic 132–159; BP diastolic 62–88
[2018-09-29] MEDS: CEFTRIAXONE SOD 1 GM/NS 50 ML 50 ML IV SCH ×2 (02:56→14:45)
[2018-09-29 05:58] LABS: BASOPHILS # (AUTO) 0.1 (0.0-0.1); BASOPHILS % 0.5 % (0.0-1.0); EOSINOPHILS # (AUTO) 0.2 (0.0-0.4); EOSINOPHILS % 1.5 % (0.0-6.0); HEMATOCRIT 33.8 % (34.2-44.1); HEMOGLOBIN 10.9 g/dL (12.0-16.0); LYMPHOCYTES # (AUTO) 2.3 (1.0-3.2); LYMPHOCYTES % 17.7 % (18.0-39.1); MEAN CORPUSCULAR HEMOGLOBIN 30.4 pg (28-32); MEAN CORPUSCULAR HGB CONC 32.2 g/dL (31-35); MEAN CORPUSCULAR VOLUME 94.2 fL (81-99); MONOCYTES # (AUTO) 1.3 (0.2-0.8); MONOCYTES % 9.5 % (4.4-11.3); NEUTROPHILS # (AUTO) 9.2 (2.1-6.9); NEUTROPHILS % 69.3 % (38.7-80.0); PLATELET COUNT 290 x10e3/uL (140-360); RED BLOOD COUNT 3.59 x10e6/uL (3.6-5.1)
[2018-09-29 06:26] LABS: ALANINE AMINOTRANSFERASE 33 IU/L (0-55); ALBUMIN/GLOBULIN RATIO 0.7 (0.8-2.0); ALKALINE PHOSPHATASE 126 IU/L (40-150); ANION GAP 9.2 mmol/L (8-16); BLOOD UREA NITROGEN 13 mg/dL (7-26); BUN/CREATININE RATIO 18 (6-25); CALCIUM 8.2 mg/dL (8.4-10.2); CARBON DIOXIDE 29 mmol/L (22-29); CHLORIDE 106 mmol/L (98-107); CREATININE, SERUM 0.74 mg/dL (0.57-1.11); EST GLOMERULAR FILTRATION RATE > 60 ML/MIN (60-); GLUCOSE 96 mg/dL (74-118); POTASSIUM 3.2 mmol/L (3.5-5.1); SODIUM 141 mmol/L (136-145)
[2018-09-29] MEDS: LEVOTHYROXINE SODIUM 75 MCG TAB PO SCH (07:22)
[2018-09-29] MEDS: FAMOTIDINE 20 MG TAB PO SCH ×2 (07:22→16:30)
--- NOTE | 2018-09-29 07:30 | NUR ---
REC'D PT ON SEMI-TURK'S POSITION, AT BEDSIDE, ON ROOM AIR, IV ON HAND IS INTACT AND PATENT. NO S/S OF DISTRESS. BED IN LOWEST POSITION, SIDE RAILS UP X2, AND CALL CHAVEZ WITHIN REACH.
[2018-09-29] MEDS: ASPIRIN 81 MG CHEW TAB PO SCH (09:07)
[2018-09-29] MEDS: METOPROLOL TARTRATE 25 MG TAB PO SCH ×2 (09:08→17:00)
[2018-09-29] MEDS ORDERED: POTASSIUM CHLORIDE 10MEQ EA PO ONE (12:15)
[2018-09-29] MEDS ORDERED: BISACODYL 10 MG SUPP PR ONE (12:15)
[2018-09-29] MEDS: RIVAROXABAN 20 MG TABLET PO SCH (17:00)
--- NOTE | 2018-09-29 18:47 | NUR ---
PATIENT IS LAYING IN BED AAOX2-3, AT THE BEDSIDE. NO S/S OF DISTRESS. SIDE RAILS UP X2, CALL CHAVEZ WITHIN REACH, AND BED IN LOWEST POSITION.
--- NOTE | 2018-09-29 19:15 | NUR ---
Patient received lying on her back in bed. at bedside. AAO x 3. Patient had complaints of sacral pain (3/10). Refused to be turned to her side. No signs of respiratory distress. Bed locked and in lowest position. Bed rails up x 2. Patient instructed to call for assistance when needed. Call light within reach. Will continue to monitor.
[2018-09-29] MEDS: HYDROMORPHONE 2MG/ML 2 MG/ML ML IV PRN (21:29)
[2018-09-29] MEDS: ATORVASTATIN 20 MG TAB PO SCH (21:29)
[2018-09-30] VITALS: BP 161/70
[2018-09-30] MEDS: ENALAPRILAT IV INJ 1.25 MG/ML VIAL IV PRN (02:45)
[2018-09-30] MEDS: CEFTRIAXONE SOD 1 GM/NS 50 ML 50 ML IV SCH ×2 (02:45→14:45)
--- NOTE | 2018-09-30 02:59 | Consultation ---
DATE OF CONSULTATION: 09/29/2018 Cardiology Consult REASON FOR CONSULT: History of hypertension and coronary artery disease. HISTORY OF PRESENT ILLNESS: The patient is a 72-year-old female, who presented with worsening back pain, was found to have fracture of her tailbone. Also, reports being severely constipated, currently in moderate distress due to her pain and constipation. Denies any chest pain or shortness of breath. No cardiovascular complaints otherwise. Neurally, she has history of coronary artery disease status post stenting in the past. REVIEW OF SYSTEMS: As above, otherwise negative. PAST MEDICAL HISTORY: 1. Hypertension. 2. Coronary artery disease. 3. Parkinson disease. FAMILY HISTORY: Noncontributory. SOCIAL HISTORY: Does not smoke, drink, or abuse drugs. OUTPATIENT MEDICATIONS: Reviewed. Please see MAR for complete list. ALLERGIES: THE PATIENT IS ALLERGIC TO OXYCODONE, CLINDAMYCIN, CODEINE, AND ERYTHROMYCIN. OBJECTIVE: VITAL SIGNS: Temperature afebrile, pulse 85, respiratory rate 16, blood pressure 134/75, saturating 95% on room air. GENERAL: An elderly female, in no acute distress. CARDIOVASCULAR: Regular rate and rhythm. No murmurs, rubs, or gallops. LUNGS: Clear to auscultation bilaterally. ABDOMEN: Soft, mildly diffusely tender. No rebound or guarding. Nondistended. NEURO AND PSYCH: Alert and oriented to person, place, and time. Normal affect. INPATIENT MEDICATIONS: Reviewed. LABORATORY DATA: Reviewed, shows white count of 13.2, potassium was 2.9, now improved to 3.2 with repletion. IMAGING DATA: Reviewed. Lumbar spine MRI showed acute or subacute minimally displaced fracture of the sacrum, left greater than right, also involving S2 vertebral body. Chest x-ray showed no acute abnormality, tortuous thoracic aorta. ASSESSMENT AND PLAN: 1. Hypertension. 2. History of coronary artery disease. 3. Fracture of the sacrum. 4. History of atrial fibrillation, on anticoagulation. PLAN: Continue aspirin and Xarelto. Continue statin and home blood pressure medications. Blood pressure has been intermittently elevated, likely secondary to pain and constipation. If remain consistently elevated, we will add more blood pressure medications. Thank you for this consult. We will continue to follow. MD GABRIELE Tomlinson/LALITHA /[id number]
[2018-09-30 04:00] VITALS: BP 143/78
[2018-09-30 05:37] LABS: BASOPHILS # (AUTO) 0.1 (0.0-0.1); BASOPHILS % 0.6 % (0.0-1.0); EOSINOPHILS # (AUTO) 0.2 (0.0-0.4); EOSINOPHILS % 1.7 % (0.0-6.0); HEMATOCRIT 33.5 % (34.2-44.1); LYMPHOCYTES # (AUTO) 2.1 (1.0-3.2); MEAN CORPUSCULAR HEMOGLOBIN 30.5 pg (28-32); MEAN CORPUSCULAR HGB CONC 32.8 g/dL (31-35); MEAN CORPUSCULAR VOLUME 92.8 fL (81-99); MONOCYTES # (AUTO) 1.2 (0.2-0.8); MONOCYTES % 9.4 % (4.4-11.3); NEUTROPHILS # (AUTO) 8.7 (2.1-6.9); NEUTROPHILS % 69.5 % (38.7-80.0); PLATELET COUNT 301 x10e3/uL (140-360); RED BLOOD COUNT 3.61 x10e6/uL (3.6-5.1); RED CELL DISTRIBUTION WIDTH 12.9 % (11.7-14.4)
[2018-09-30 05:53] LABS: ANION GAP 11.2 mmol/L (8-16); BLOOD UREA NITROGEN 13 mg/dL (7-26); BUN/CREATININE RATIO 19 (6-25); CALCIUM 8.2 mg/dL (8.4-10.2); CARBON DIOXIDE 26 mmol/L (22-29); CHLORIDE 106 mmol/L (98-107); CREATININE, SERUM 0.68 mg/dL (0.57-1.11); EST GLOMERULAR FILTRATION RATE > 60 ML/MIN (60-); GLUCOSE 101 mg/dL (74-118); POTASSIUM 3.2 mmol/L (3.5-5.1); SODIUM 140 mmol/L (136-145)
[2018-09-30] MEDS: ACETAMINOPHEN 325 MG TAB PO PRN (06:08)
[2018-09-30] MEDS: LEVOTHYROXINE SODIUM 75 MCG TAB PO SCH (06:30)
--- NOTE | 2018-09-30 07:00 | NUR ---
Walking rounds done. Patient resting comfortably. Shift report given to oncoming nurse.
--- NOTE | 2018-09-30 07:10 | NUR ---
RCD PT AT BED PT IS ALERT AND ORIENTED RESTING ON BED NO SIGNS OF ANY DISTRESS NOTED IV PATENT FAMILY AT BED SIDE BED LOW AND LOCKED CALL LIGHT IN REACH
[2018-09-30] MEDS: FAMOTIDINE 20 MG TAB PO SCH ×2 (07:30→16:30)
[2018-09-30 08:00] VITALS: BP 130/77
[2018-09-30 09:00] VITALS: BP 130/77
[2018-09-30] MEDS: METOPROLOL TARTRATE 25 MG TAB PO SCH ×2 (09:00→17:00)
[2018-09-30] MEDS: ASPIRIN 81 MG CHEW TAB PO SCH (09:00)
--- NOTE | 2018-09-30 10:38 | NUR ---
ASSESSMENT: Spiritual concern Pt states she is impatient concerning illness. Pt's daughter at bedside. Pt states she has support from , daughters and grandchildren. Intervention: Provided hospitality, facilitated illness review and provided information on how to reach senior enterprise architect, if needed. Outcome: No need to follow at this time. LOGAN JOSUE Farm Management Supervisor Spiritual Care Department O: [phone] Pager: [phone] ([phone] number calling from)
[2018-09-30] MEDS ORDERED: POTASSIUM CHLORIDE 10MEQ EA PO ONE (11:00)
[2018-09-30] MEDS: TRAMADOL HCL 50 MG TAB PO PRN ×2 (11:18→16:50)
--- NOTE | 2018-09-30 14:01 | NUR ---
PT DISCUSSED IN BARRIER ROUNDS, DR SCHAFFER TO DO PEER TO PEER FOR SNF, AND WILL LET KNOW WHICH DIRECTION FOR DISCHARGE. SPOKE WITH RUBY SHAH TO LET KNOW UPDATE.
[2018-09-30 16:00] VITALS: BP 154/83
--- NOTE | 2018-09-30 16:27 | NUR ---
GOT CALL FROM KAITLIN FROM [facility], PROVIDED PHONE FOR SNF PEER TO PEER DENIAL, HAD DR SCHAFFER ON PHONE DR KAYLA KYLE NOT CURRENTLY AVAILABLE AND WILL RETURN CALL TO DR SCHAFFER, THEY HAD DISCUSSION AND WAS TOLD BY LIV FROM [facility] BOTH DOCTORS DETERMINED THAT LTAC WAS AN APPROPRIATE LEVEL OF CARE. CALLED TRE TO REINITIATE THE LTAC REFERRAL.
[2018-09-30] MEDS: RIVAROXABAN 20 MG TABLET PO SCH (17:00)
--- NOTE | 2018-09-30 17:06 | NUR ---
Nutrition LOS Note RD Recommendation for Physician: -Continue diet as ordered Plan of Care: Patient has been screened and assessed for nutrition risk. At this time, the patient does not pose any nutrition risk. No further nutrition intervention is warranted at this time. Will re-evaluate if consulted by medical staff. Nutrition reason for involvement: LOS Primary Diagnose(s): Sacral fracture PMH: HTN, CAD, Parkinsons dz Ht: 61in Wt: 124lb BMI: 23.4kg/m2 IBW: 105lb +/- 10% RD Assessment: (09/30) Chart reviewed. Labs and meds reviewed. 72yo F, who was admitted for sacral fracture. Pending placement. Visited pt in the room. Pt reported good appetite prior and during hospital stay. No GI complains reported. Pt denied any chewing or swallowing difficulty. Weight has been stable with reported UBW ~119lbs. Current diet is adequate and appropriate. Current Diet: regular diet Malnutrition Evaluation (09/30/2018) The patient does not meet criteria for a specified degree of malnutrition at this time. Will re-evaluate at follow-up as appropriate. Diet Education Needs Assessment: Diet education not indicated. Nutrition Care Level: low Signed: Maria T Davalos, MS, RD, LD
--- NOTE | 2018-09-30 18:43 | NUR ---
PT RESTING ON BED BED SIDE REPORT GIVEN TO ONCOMING NURSE
[2018-09-30 20:00] VITALS: BP 130/62
[2018-09-30] MEDS: ATORVASTATIN 20 MG TAB PO SCH (21:40)
[2018-09-30] MEDS: HYDROMORPHONE 2MG/ML 2 MG/ML ML IV PRN (21:48)
[2018-10-01] VITALS (8 sets, daily range): BP systolic 139–188; BP diastolic 67–90
[2018-10-01] MEDS: CEFTRIAXONE SOD 1 GM/NS 50 ML 50 ML IV SCH ×2 (02:44→14:45)
[2018-10-01] MEDS: TRAMADOL HCL 50 MG TAB PO PRN ×3 (03:45→18:35)
[2018-10-01] MEDS: ENALAPRILAT IV INJ 1.25 MG/ML VIAL IV PRN ×2 (03:45→22:11)
[2018-10-01] MEDS: LEVOTHYROXINE SODIUM 75 MCG TAB PO SCH (06:20)
--- NOTE | 2018-10-01 07:01 | NUR ---
BEDSIDE SHIFT REPORT GIVEN TO ONCOMING NURSE.PT RESTING IN BED WITH NO S/S OF DISTRESS.
[2018-10-01] MEDS: FAMOTIDINE 20 MG TAB PO SCH ×2 (07:30→16:30)
[2018-10-01] MEDS: ASPIRIN 81 MG CHEW TAB PO SCH (09:00)
[2018-10-01] MEDS: METOPROLOL TARTRATE 25 MG TAB PO SCH ×2 (09:00→17:00)
--- NOTE | 2018-10-01 10:29 | NUR ---
RECEIVED CALL FROM CARLIE [phone] FROM [employer], STATING SHE CANNOT SEE THE SNF IN [facility], I EXPLAINED WHOM I SPOKE WITH YESTERDAY AND THE STEPS TAKEN THAT LED TO PEER TO PEER AND THE DETERMINATION FROM LIV THAT DOCTORS DECIDED THAT LTAC WAS THE PREFERRED LEVEL OF CARE. CARLIE STATES SHE WILL SPEAK TO HER BRIM CUTTER BECAUSE THEY DO NOT SEE ANY OF THIS INFORMATION IN THE [facility]. SHE STATES SHE ONLY SEES THE LTAC AND IT IS NOT APPROPRIATE LEVEL OF CARE, I ASKED HOW THIS IS STILL POSSIBLE SINCE THE PEER TO PEER YESTERDAY DETERMINATION BETWEEN THE DOCTORS SAID IT WAS. SHE WILL CALL BACK AFTER SHE DISCUSSES WITH HER COMPUTER SYSTEMS HARDWARE ANALYST. NOTIFIED CM OF ENTIRE CASE AND WAITING ON RESPONSE.
[2018-10-01] MEDS: LISINOPRIL 10 MG TAB PO SCH (12:00)
--- NOTE | 2018-10-01 13:37 | Progress Note ---
DATE: Cardiology Progress Note SUBJECTIVE: The patient is feeling better. Reports mild pain at the sacral site. OBJECTIVE: VITAL SIGNS: Temperature is 98.7, heart rate is 82, respirations are 18, blood pressure is 164/77, oxygen saturation 96% on room air. GENERAL: She is an elderly woman, in no apparent distress. CARDIOVASCULAR: Regular rate and rhythm. No murmurs. LUNGS: Clear to auscultation. ABDOMEN: Soft, nontender, and nondistended. EXTREMITIES: No edema. CARDIOVASCULAR MEDICATIONS: Reviewed. LABORATORY DATA: Reviewed. Hemoglobin 11, creatinine 0.68, potassium 3.2. IMPRESSION: 1. Hypertension. 2. Coronary artery disease. 3. Fracture of the sacrum. 4. History of paroxysmal atrial fibrillation. RECOMMENDATIONS: The patient will need better blood pressure control. Continue amiodarone and metoprolol. Add lisinopril. Continues Xarelto for anticoagulation. Pain control per primary team. Vince Corcoran DO BM/MODL /[id number]
--- NOTE | 2018-10-01 19:05 | NUR ---
PT RESTING ON BED BED SIDE REPORT GIVEN TO ONCOMING NURSE
--- NOTE | 2018-10-01 20:40 | NUR ---
Paged Dr. Aquilino Muller for pain med orders
--- NOTE | 2018-10-01 21:40 | NUR ---
Paged Dr. Aquilino Muller for pain medication orders.
[2018-10-01] MEDS: ATORVASTATIN 20 MG TAB PO SCH (22:11)
--- NOTE | 2018-10-01 23:34 | NUR ---
Received call back from Dr. Rob Muller, orders received.
[2018-10-02] VITALS (9 sets, daily range): BP systolic 119–170; BP diastolic 64–84
[2018-10-02] MEDS: HYDROMORPHONE 2MG/ML 2 MG/ML ML IV PRN ×2 (00:16→22:55)
[2018-10-02] MEDS: CEFTRIAXONE SOD 1 GM/NS 50 ML 50 ML IV SCH ×2 (02:58→14:00)
[2018-10-02] MEDS: LEVOTHYROXINE SODIUM 75 MCG TAB PO SCH (05:10)
[2018-10-02] MEDS: FAMOTIDINE 20 MG TAB PO SCH ×2 (07:39→15:39)
[2018-10-02] MEDS: ASPIRIN 81 MG CHEW TAB PO SCH (07:39)
[2018-10-02] MEDS: METOPROLOL TARTRATE 25 MG TAB PO SCH ×2 (07:40→15:40)
[2018-10-02] MEDS: TRAMADOL HCL 50 MG TAB PO PRN ×3 (07:40→20:05)
[2018-10-02] MEDS: LISINOPRIL 10 MG TAB PO SCH (07:44)
[2018-10-02] MEDS: LIDOCAINE 5% PATCH TP SCH (10:55)
--- NOTE | 2018-10-02 11:00 | NUR ---
CALLED CARLIE [phone] FROM [facility] ASKING FOR AN UPDATE ON REFERRAL, LEFT MESSAGE TO RETURN CALL.
--- NOTE | 2018-10-02 11:11 | Progress Note ---
DATE: Cardiology Progress Note SUBJECTIVE: Thee patient denies any chest pain, shortness of breath or palpitations. OBJECTIVE: VITAL SIGNS: Temperature is 98.1, heart rate is 86, respirations are 20, blood pressure is 119/73, oxygen saturation is 97% on room air. GENERAL: Well appearing, in no apparent distress. CARDIOVASCULAR: Regular rate and rhythm. LUNGS: Clear to auscultation. ABDOMEN: Soft, nontender, and nondistended. EXTREMITIES: No edema. CARDIOVASCULAR MEDICATIONS: Reviewed. LABORATORY DATA: Reviewed. IMPRESSION: 1. Hypertension. 2. Coronary artery disease. 3. Fracture of the sacrum. 4. History of paroxysmal atrial fibrillation. RECOMMENDATIONS: The patient's blood pressure is better controlled after the addition of lisinopril. Continue amiodarone and metoprolol for rate and rhythm control. Continue anticoagulation in the form of Xarelto. Pain control per primary team. The patient's cardiovascular status is stable at this point in time. DO KRISTINA Patel/MODL /[id number]
[2018-10-02 11:38] LABS: BASOPHILS # (AUTO) 0.1 (0.0-0.1); BASOPHILS % 0.5 % (0.0-1.0); EOSINOPHILS # (AUTO) 0.1 (0.0-0.4); HEMATOCRIT 33.9 % (34.2-44.1); HEMOGLOBIN 11.4 g/dL (12.0-16.0); LYMPHOCYTES # (AUTO) 1.6 (1.0-3.2); LYMPHOCYTES % 16.8 % (18.0-39.1); MEAN CORPUSCULAR HEMOGLOBIN 30.7 pg (28-32); MEAN CORPUSCULAR HGB CONC 33.6 g/dL (31-35); MEAN CORPUSCULAR VOLUME 91.4 fL (81-99); MONOCYTES # (AUTO) 0.9 (0.2-0.8); MONOCYTES % 9.7 % (4.4-11.3); NEUTROPHILS # (AUTO) 6.5 (2.1-6.9); NEUTROPHILS % 70.5 % (38.7-80.0); PLATELET COUNT 324 x10e3/uL (140-360); RED BLOOD COUNT 3.71 x10e6/uL (3.6-5.1); RED CELL DISTRIBUTION WIDTH 13.1 % (11.7-14.4)
[2018-10-02 12:04] LABS: ANION GAP 13.1 mmol/L (8-16); BLOOD UREA NITROGEN 11 mg/dL (7-26); BUN/CREATININE RATIO 15 (6-25); CALCIUM 8.6 mg/dL (8.4-10.2); CARBON DIOXIDE 27 mmol/L (22-29); CHLORIDE 102 mmol/L (98-107); CREATININE, SERUM 0.71 mg/dL (0.57-1.11); EST GLOMERULAR FILTRATION RATE > 60 ML/MIN (60-); GLUCOSE 106 mg/dL (74-118); POTASSIUM 3.1 mmol/L (3.5-5.1); SODIUM 139 mmol/L (136-145)
[2018-10-02] MEDS ORDERED: POTASSIUM CHLORIDE 20 MEQ TAB CR PO ONE ×2 (12:17→14:30)
[2018-10-02] MEDS: ENALAPRILAT IV INJ 1.25 MG/ML VIAL IV PRN (15:40)
[2018-10-02] MEDS ORDERED: ONDANSETRON HCL 4 MG ORAL DISINTEGRATING TAB PO PRN (17:30)
--- NOTE | 2018-10-02 19:20 | NUR ---
Report given to oncoming nurse of patient's status. Resting in bed. No s/s of acute distress noted. Family member at bedside, side rails upx2, call light within reach, bed alarm on.
[2018-10-02] MEDS: ATORVASTATIN 20 MG TAB PO SCH (20:16)
[2018-10-03] VITALS (9 sets, daily range): BP systolic 117–199; BP diastolic 58–99
[2018-10-03] MEDS: TRAMADOL HCL 50 MG TAB PO PRN (03:49)
[2018-10-03] MEDS: ENALAPRILAT IV INJ 1.25 MG/ML VIAL IV PRN (03:50)
[2018-10-03] MEDS: LEVOTHYROXINE SODIUM 75 MCG TAB PO SCH (05:01)
[2018-10-03 05:28] LABS: ANION GAP 16.5 mmol/L (8-16); BLOOD UREA NITROGEN 14 mg/dL (7-26); BUN/CREATININE RATIO 18 (6-25); CALCIUM 9.1 mg/dL (8.4-10.2); CARBON DIOXIDE 25 mmol/L (22-29); CHLORIDE 100 mmol/L (98-107); CREATININE, SERUM 0.79 mg/dL (0.57-1.11); EST GLOMERULAR FILTRATION RATE > 60 ML/MIN (60-); GLUCOSE 107 mg/dL (74-118); POTASSIUM 3.5 mmol/L (3.5-5.1); SODIUM 138 mmol/L (136-145)
--- NOTE | 2018-10-03 07:20 | NUR ---
PATIENT IN BED RESTING WITH NO S/S OF DISTRESS. ESCOBEDO CATHETER IN PLACE WITH PINK URINE, BRUISES TO ARMS. BED IN LOWER POSITION AND LOCKED. CALL LIGHT AT REACH.
[2018-10-03] MEDS ORDERED: LIDOCAINE HCL 1% LOCAL INJ 20 ML VIAL INJ ONE (07:30)
[2018-10-03] MEDS ORDERED: TRIAMCINOLONE ACET 40 MG/ML VIAL IM ONE (07:30)
[2018-10-03] MEDS: FAMOTIDINE 20 MG TAB PO SCH ×2 (08:05→16:51)
[2018-10-03] MEDS ORDERED: TRIAMCINOLONE ACET 40 MG/ML VIAL IM NR (08:30)
[2018-10-03] MEDS ORDERED: LIDOCAINE 5% PATCH TP SCH (09:00)
[2018-10-03] MEDS: ASPIRIN 81 MG CHEW TAB PO SCH (09:23)
[2018-10-03] MEDS: METOPROLOL TARTRATE 25 MG TAB PO SCH ×2 (09:23→17:26)
[2018-10-03] MEDS: LISINOPRIL 10 MG TAB PO SCH (09:23)
[2018-10-03] MEDS: LIDOCAINE 5% PATCH TP SCH (09:23)
--- NOTE | 2018-10-03 10:54 | NUR ---
BED SIDE NERVE BLOCK COMPLETED, PATIENT TOLERATED PROCEDURE WELL, BAND AID TO SITE. IN BED WITH CALL LIGHT AT REACH, AT BED SIDE.
--- NOTE | 2018-10-03 15:51 | NUR ---
PATIENT IN BED RESTING WITH EYES CLOSED, NO DISTRESS NOTED. BED IN LOWER POSITION AND LOCKED. CALL LIGHT AT REACH.
--- NOTE | 2018-10-03 16:38 | Operative Report ---
DATE OF PROCEDURE: 10/03/2018 SURGEON: Bernarda Minaya MD BEDSIDE SURGICAL PROCEDURE NOTE PREOPERATIVE DIAGNOSES: 1. 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 2. Neurogenic pain. 3. Acute back pain due to post procedure. 4. Right sacroiliac joint dysfunction. 5. Acute sciatica. POSTOPERATIVE DIAGNOSES: 1. 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 2. Neurogenic pain. 3. Acute back pain due to post procedure. 4. Right sacroiliac joint dysfunction. 5. Acute sciatica. PROCEDURE: Bedside lumbosacral nerve block in the sacral area to relive the intractable, excruciating, incapacitating pain 12/19. PROCEDURE IN DETAIL: Ms. Mik Vo is a 72-year-old female, brought to the hospital with the excruciating, intractable, incapacitating pain in the sacral area and lumbar area after she underwent a procedure called RFTC or radiofrequency thermocoagulation in the right lumbar showed hematoma and ecchymosis in the high lumbar area around the nerve lumbar 1 or lumbar 2 nerve area. Pictures have been taken. Her pain is so excruciating and because of her age, she cannot tolerate an opiate. There were not many choices here except to offer a nerve block to get some pain relief so she can feel better. She is on Dilaudid and tramadol, not holding her pain as per . She keeps crying so keeping in view of above, she is incapacitating and age, decided to go up with nerve block as a definitive care. I have explained all benefits, risks, and alternatives. I showed the the bleeding spot and hematoma spot and explained him to go back to her physician, who did this nerve block to observe this area for next few weeks if becomes infected, requires to drain, and seen by Surgery. He does understand and agree with the care plan. The patient was placed in the right decubitus position on the lumbar back. The sacral area was prepped with DuraPrep and then applied 1% local lidocaine . In the highest dental point area in the sacral area, one 25 needle was advanced after making a 1% lidocaine bleeding. After coming in contact with the bone, the needle was withdrawn and the most painful area was injected with 10 mL of 1% lidocaine with 2 mL of Kenalog consists of 80 mg triamcinolone. The needle flushed, withdrawn, band-aid applied, and the patient was placed back in the supine position. Her pain which was 10/10 before the procedure was become almost none after the procedure. She reported good pain relief. Never to have felt better right away after the procedure. Again explained to her about possible after effect of the radiofrequency thermocoagulation and advised him to contact her physician as soon as possible to watch her developing of any other side effects. The radiofrequency thermocoagulation may finally lead to lumbar neuritis and may be other complication may happen, which will follow her. She got a little footdrop after this. I will hope that she will recover and her footdrop would go away. I also advised start physical therapy as soon as possible and we will follow her while she is inpatient. She will follow up with her pain doctor when she is being discharged from the hospital. We will communicate with her doctor, also I will send my report to him to follow the patient. Thank you Dr. Muller for this patient. I will follow her with you. MD BISI Smith/LALITHA /[id number]
--- NOTE | 2018-10-03 19:10 | Progress Note ---
DATE: Cardiology Progress Note SUBJECTIVE: The patient underwent nerve block today. Denies any symptoms. OBJECTIVE: VITAL SIGNS: Temperature is 96.9, heart rate is 86, blood pressure is labile today in the a.m. was 185/99, after her pain procedure it was 124/63, ox saturation 96% on room air. GENERAL: Well appearing, no apparent distress. CARDIOVASCULAR: Regular rate and rhythm. No murmurs. LUNGS: Clear to auscultation. ABDOMEN: Soft, nontender, nondistended. EXTREMITIES: No edema. CARDIOVASCULAR MEDICATIONS: Reviewed. LABORATORY DATA: Reviewed. IMPRESSION: 1. Hypertension. 2. Coronary artery disease. 3. Fracture of the sacrum. 4. Paroxysmal atrial fibrillation. RECOMMENDATIONS: Blood pressure has been labile during admission. I suspect pain is playing a role in her elevated blood pressures. Now that she has undergone nerve block, we will continue to monitor closely. If needed, we can increase the lisinopril from 10 to 20 mg. Otherwise, continue all current cardiovascular medications. Vince Corcoran DO BM/MODL /[id number]
[2018-10-03] MEDS: ATORVASTATIN 20 MG TAB PO SCH (21:04)
[2018-10-03] MEDS: ACETAMINOPHEN 325 MG TAB PO PRN (21:26)
[2018-10-04] MEDS: ACETAMINOPHEN 325 MG TAB PO PRN ×2 (04:15→10:50)
[2018-10-04] MEDS: ENALAPRILAT IV INJ 1.25 MG/ML VIAL IV PRN (04:16)
[2018-10-04 04:32] VITALS: BP 181/90
[2018-10-04] MEDS: LEVOTHYROXINE SODIUM 75 MCG TAB PO SCH (05:00)
[2018-10-04] MEDS: FAMOTIDINE 20 MG TAB PO SCH (07:30)
[2018-10-04 07:57] VITALS: BP 156/68
--- NOTE | 2018-10-04 08:23 | NUR ---
PATIENT DENIED [facility]ACEMENT DUE TO LACK OF MEDICAL NECESSITY. CM SPOKE TO DR. SCHAFFER REGARDING UPDATED PLAN OF CARE AND DISCHARGE PLAN. DR. SCHAFFER GAVE VERBAL ORDER FOR [facility]AC[facility]ACEMENT SINCE SNF WAS NOT DENIED ORIGINALLY. PENDING CHOICE FOR INITIATION.
[2018-10-04] MEDS ORDERED: LISINOPRIL 10 MG TAB PO SCH ×2 (08:30→09:00)
[2018-10-04 09:00] VITALS: BP 156/68
[2018-10-04] MEDS: METOPROLOL TARTRATE 25 MG TAB PO SCH (09:00)
[2018-10-04] MEDS: LIDOCAINE 5% PATCH TP SCH (09:00)
[2018-10-04] MEDS: ASPIRIN 81 MG CHEW TAB PO SCH (09:00)
--- NOTE | 2018-10-04 10:18 | NUR ---
PT ACCEPTED TO [facility] [address] [facility], RTF COMPLETED AND GIVEN TO NURSE FOR COMPLETION OF TRANSFER. IMM SIGNED AND ON CHART COPY LEFT WITH PATIENT GAVE CARD FOR QUESTIONS AND OR CONCERNS.
--- NOTE | 2018-10-04 11:00 | NUR ---
DISCHARGE DISPOSITION PATIENT ACCEPTED AND TRANSFERRING TO LONG-TERM FACILITY: [facility] [id number], [place] [address] ROOM# 605 PATIENT AWARE AND BEDSIDE RN ANU MCDONNELL.
--- NOTE | 2018-10-04 11:04 | NUR ---
IMM SIGNED AND ON CHART COPY LEFT WITH PATIENT GAVE CARD FOR QUESTIONS AND OR CONCERNS.
--- NOTE | 2018-10-04 11:12 | NUR ---
REPORT GIVEN TO MARTIN ALARCON
[2018-10-04 11:59] VITALS: BP 139/63
--- NOTE | 2018-10-04 13:10 | NUR ---
PT DISCHARGED TO [facility]
--- NOTE | 2018-11-05 08:38 | Discharge Summary ---
CHIEF COMPLAINT: Back pain, status post fall. FINAL DIAGNOSES: Fractured sacrum, urinary tract infection, severe low back pain, and hypokalemia. DISPOSITION: [facility]. HOSPITAL COURSE: 72-year-old female with known history of hypertension, coronary artery disease, and chronic back pain due to spinal stenosis, brought to the ER with a 2-week history of progressive low back pain started after a fall. She was seen at [facility], and was told that she had a sacral fracture. The patient complains that she had been able to stand and walk due to the pain. There was no loss of consciousness. She has no shortness of breath. Review and evaluation were conducted in the ER, x-rays were obtained. The patient was showing marked pain, right and left leg raising, and admitted for care regarding issues of severe low back pain, fractured sacrum, questionable UTI, hypertension, and coronary artery disease. With admission, we will be addressing analgesic issues, addressing urine problems, placed on IV fluids. Home medications will continue. With admission, she was being seen by Orthopedic, Dr. Tanner due to the low back pain and difficulty ambulating. Up on his evaluation of the patient and reviewing x-rays, noted with this pain, she has been requiring strong narcotics, Dilaudid every 2 hours to control the pain. The MRI was reviewed by Dr. Wise, neurosurgeon, which she deferred to General Orthopedics. It was stated by him that there is no need for neurosurgical care. Recommend tapering the patient off high-dose narcotics and mobilizing her physical therapy. There is concern that the patient has severe urinary retention, currently requiring straight caths. Constipation has been an issue as well over the past week, assessed with laxatives. Consulted with Urology, Dr. Mondragon with issues of urinary retention. With his review, his assessment was probable neurogenic bladder from sacral injury and potentially from heart disease. Urinary retention that recurred and persisted. Urinary tract infections, mixed type urinary incontinence, leukocytosis, hyponatremia, and microhematuria. Recommendations are for placing a Irene catheter at the present. States that the catheter needs to be changed on a monthly basis until able to follow up and evaluated and requests this be done after she has completed her rehab regarding her back issues. She states that at some point, cystoscopy and retrograde pyelograms were being ordered to evaluate her microhematuria as well as urinary tract infection. Regarding coronary artery disease with history of hypertension, Cardiology was evaluating the patient as well. Following review by Dr. Greg Suazo, assessment was hypertension, history of coronary artery disease, fracture of the sacrum, and history of atrial fib, on anticoagulation. Recommend continuing aspirin and Xarelto. Continue the statins and blood pressure medications. It feels that the blood pressure has been intermittently elevated, likely secondary to pain and constipation. Procedure by Dr. Minaya, bedside lumbosacral nerve block in the sacral area to leave the intractable excruciating incapacitating pain, which the patient states registers at 10/10. Following the procedure, she will be returning to her pain position when she is discharged from the facility. We will stay in communication with documentations to her physician. From the ER, the patient was placed in IMCU on a regular diet. She was still contained continuing to complain of low back pain. No nausea or vomiting. She was placed on ceftriaxone. Daily medications were continuing, was receiving tramadol for pain assistance. She underwent her consultants review during her stay in the facility and she continues to demonstrate low back pain requiring dosages of Dilaudid, which was making her highly sedated. Laboratory studies were being reviewed further. Her constipation issues were being addressed with laxatives. She is also receiving medications for insomnia. As she was progressive, further Dilaudid was being reduced to 0.5 mg IV q.6, continue with the physical therapy, issues with urinary retention was addressed by Dr. Mondragon and Irene was being placed. It was noted on her CBC that she was running an elevated white count. She began having issues with hypokalemia. Further pain was addressed with Dr. Minaya, which he performed procedure at bedside. Even though she was receiving these pain medications, she was still complaining of having significant sacral pain. The potassium continued to be low. The supplements were being adjusted appropriately for corrective measures. Discussions are being made for the need for further care. Discharge planning to SNF facility or rehab facility. While she was reclined in the bed, she was resting comfortably, but she was unable to get out of bed due to the severe pain in her low back and with case management, further involvement, she was accepted to the [facility] for continued rehab and continued care regarding her low back pain and she was transferred to the [facility] stable, but guarded condition. For further pain assistance, she will be written prescription for Lidoderm patch to apply to the area of concern for 12 hours a day and she was released to the [facility] on 10/04/2018. IMAGING: The lower extremity venous Doppler bilateral shows no evidence of DVT. Lumbar spine MRI shows acute or subacute minimally displaced bilateral sacral ala fractures, left greater than right, involved the S2 vertebral body. Mild multilevel disk degeneration, multilevel degenerative canal stenosis, moderate L4-5 mild to left L3-4 and bilateral L4-5 degenerative foraminal stenosis. Abdomen x-rays were conducted for the concern of the constipation on the patient. Findings were showing nonobstructive bowel gas pattern, increased stool burden throughout the transfer colon. Nuclear medicine total body scan shows acute sacral insufficiency fracture, healed fractures in the right 6th and 7th ribs anteriorly. Final chest x-ray shows no acute thoracic abnormality, unchanged tortuous ectatic aorta. Urine cultures, unremarkable. LABORATORY STUDIES: CBC showing initial white cell count to be at 13,700, H and Hs were normal, and platelets are normal. Followup white cell counts dank to 18,900 and began to fall down toward normal with a final study of 9200, H and H fell to 10.9 and 33.8, final study 11.4 and 33.9. The urinalysis was showing 21 to 50 rbc's by high-power field, 6 to 10 wbc's by high-power field, moderate amount of bacteria. Chemistries reveals initial electrolyte panel to be stable, glucose of 161. Followup electrolytes had revealed the potassium to have fallen to 2.9 and can be monitored further, she was given supplemental medications. The potassium did rebound to 3.5, but then again trended downward to 3.1, final study was 3.5, final glucose 107. As mentioned, the patient was accepted to the [facility] where she will continue her rehab process regarding her low back pain. She will continue on her current MARs, continue her current diet. No equipments or supplies necessary. She was discharged with her Irene. She will continue on her PT/OT programs. I will continue to monitor the patient's progress in that facility as she continued in her care. Staff will be contacting me in my office as needed. Dictated by SHANNA Dunne MD MELVI Kingsley/LALITHA /[id number]
== END 2018-10-04 13:10 | DRG 543 ==
LOC: ER 12:45 → ERHOLD 14:47 → IMCU 15:23 → OBSVTOIN 09-24 15:27 → MED/SURG2 09-24 17:07
PROC: 3E0T3BZ Introduction of Anesthetic Agent into Peripheral Nerves and Plexi, Percutaneous Approach (ICD-10-PCS; principal; 2018-10-03)
PROC: 3E0T33Z Introduction of Anti-inflammatory into Peripheral Nerves and Plexi, Percutaneous Approach (ICD-10-PCS; 2018-10-03)
DX: M80.80XA Other osteoporosis with current pathological fracture, unspecified site, initial encounter for fracture (principal); N30.01 Acute cystitis with hematuria; E87.1 Hypo-osmolality and hyponatremia; X58.XXXA Exposure to other specified factors, initial encounter; I10 Essential (primary) hypertension; I25.10 Atherosclerotic heart disease of native coronary artery without angina pectoris; I48.0 Paroxysmal atrial fibrillation; Z79.01 Long term (current) use of anticoagulants; Z88.5 Allergy status to narcotic agent; Z88.8 Allergy status to other drugs, medicaments and biological substances; I25.2 Old myocardial infarction; G20 Parkinson's disease; N31.8 Other neuromuscular dysfunction of bladder; N39.46 Mixed incontinence; R33.9 Retention of urine, unspecified; K59.00 Constipation, unspecified; G89.4 Chronic pain syndrome; E87.6 Hypokalemia; D64.9 Anemia, unspecified; M54.17 Radiculopathy, lumbosacral region
CPT/HCPCS: 36415; 71045; 72148; 72195; 74018; 78315; 80048; 80053; 81001; 82948; 85025; 85379; 87086; 93970; 97139; 99284; A9503; G0378; J0696; J1885; J2001; J2405; J3301; J7040; J7042

== ENCOUNTER → 2019-11-20 | Outpatient (CLI) | payer MEDICARE ==
[~2019-11-20] MED LIST changes: +ACETAMINOPHEN325 M1 PO; +ATORVASTATIN CA20 MG PO; +REGADENOSON 0.4 MG/5 ML SYR IV ONE; +ULTRAM 50MG50 MG PO; +XARELTO20 MG PO
== END ==
LOC: NM 09:02
PROVIDERS: ATTEND Internal Medicine Interventional Cardiology
DX: I48.91 Unspecified atrial fibrillation (principal); I25.118 Atherosclerotic heart disease of native coronary artery with other forms of angina pectoris
CPT/HCPCS: 78452; 93017; A9502; J2785

== ENCOUNTER → 2020-12-09 | Outpatient (CLI) | payer MEDICARE ==
[~2020-12-09] MED LIST changes: -REGADENOSON 0.4 MG/5 ML SYR IV ONE
== END ==
LOC: US 12:30
PROVIDERS: ATTEND Urology
DX: R31.21 Asymptomatic microscopic hematuria (principal)
CPT/HCPCS: 74018; 76770

== ENCOUNTER → 2021-01-10 | Outpatient (CLI) | payer MEDICARE ==
[~2021-01-10] MED LIST changes: +IOPAMIDOL 370 MG/ML 200 ML INFUS..BTL INJ ONE; +SODIUM CHLORIDE 0.9% 250ML 250 ML ONE
[2021-01-10 14:25] LABS: CREATININE, SERUM 0.76 mg/dL (0.57-1.11)
== END ==
LOC: CT 13:39
PROVIDERS: ATTEND Urology
DX: R31.21 Asymptomatic microscopic hematuria (principal)
CPT/HCPCS: 36415; 74178; 82565; 84520; J7050; Q9967

== ENCOUNTER → 2021-02-14 | Outpatient (CLI) | payer MEDICARE ==
[~2021-02-14] MED LIST changes: +AMINOPHYLLINE INJ 25 MG/ML 20 ML VIAL ONE; -IOPAMIDOL 370 MG/ML 200 ML INFUS..BTL INJ ONE; +REGADENOSON 0.4 MG/5 ML SYR IV ONE; -SODIUM CHLORIDE 0.9% 250ML 250 ML ONE
== END ==
LOC: NM 09:51
PROVIDERS: ATTEND Nurse Practitioner Family
DX: I20.8 Other forms of angina pectoris (principal)
CPT/HCPCS: 78452; 93017; 93306; A9502; J0280; J2785

== ENCOUNTER → 2021-02-25 | Outpatient (CLI) | payer MEDICARE ==
[~2021-02-25] MED LIST changes: -AMINOPHYLLINE INJ 25 MG/ML 20 ML VIAL ONE; -REGADENOSON 0.4 MG/5 ML SYR IV ONE
== END ==
LOC: RAD 09:32
PROVIDERS: ATTEND Urology
DX: N20.0 Calculus of kidney (principal)
CPT/HCPCS: 74018

== ENCOUNTER → 2021-03-17 | Outpatient (CLI) | payer MEDICARE | LOC: CT 09:43 | PROVIDERS: ATTEND Urology | DX: N20.0 Calculus of kidney (principal) | CPT/HCPCS: 74176 ==

== ENCOUNTER → 2021-04-08 | Day surgery (SDC) | payer MEDICARE ==
[~2021-04-08] MED LIST changes: +BELLADONNA/OPIUM 30 MG SUPP RC ONE; +CEFTRIAXONE 1 GM VIAL ONE; +DEXAMETHASONE SOD PHOS INJ 4 MG/ML SDV ONE; +EPHEDRINE SULFATE INJ 50 MG/ML VIAL ONE; +FENTANYL CITRATE/PF 100MCG/2 ML INJ ONE; +IOPAMIDOL 300MG/ML 50ML INFUS..BTL IV ONE; +LIDOCAINE HCL 2% LOCAL INJ 5 ML SDV VIAL INJ ONE; +ONDANSETRON HCL INJ 2MG/ML 2ML 2 MG/ML VIAL ONE; +POVIDONE IODINE 0.05% 0.05 % ML PO ONE; +PROPOFOL IV EMULSION 10 MG/ML 20 ML VIAL ONE; +SEVOFLURANE INHAL SOLN 250 ML PEN BTL ONE; +SILVADENE20 GM TOP; +SODIUM CHLORIDE 0.9% 50ML 50 ML ONE; +SYNTHROID75 MCG PO
[2021-04-08 09:31] LABS: BASOPHILS # (AUTO) 0.1 (0.0-0.1); BASOPHILS % 0.6 % (0.0-1.0); EOSINOPHILS # (AUTO) 0.4 (0.0-0.4); EOSINOPHILS % 4.7 % (0.0-6.0); HEMATOCRIT 37.4 % (34.2-44.1); HEMOGLOBIN 12.1 g/dL (12.0-16.0); LYMPHOCYTES # (AUTO) 3.8 (1.0-3.2); LYMPHOCYTES % 43.6 % (18.0-39.1); MEAN CORPUSCULAR HEMOGLOBIN 29.7 pg (28-32); MEAN CORPUSCULAR HGB CONC 32.4 g/dL (31-35); MEAN CORPUSCULAR VOLUME 91.7 fL (81-99); MONOCYTES # (AUTO) 0.5 (0.2-0.8); MONOCYTES % 6.2 % (4.4-11.3); NEUTROPHILS # (AUTO) 3.9 (2.1-6.9); NEUTROPHILS % 44.8 % (38.7-80.0); PLATELET COUNT 250 x10e3/uL (140-360); RED BLOOD COUNT 4.08 x10e6/uL (3.6-5.1); RED CELL DISTRIBUTION WIDTH 13.2 % (11.7-14.4)
[2021-04-08 09:50] LABS: CALCIUM 8.8 mg/dL (8.4-10.2); CREATININE, SERUM 0.8 mg/dL (0.57-1.11)
[2021-04-08 12:43] VITALS: BP 136/60
== END | disposition home or self-care (01) ==
LOC: OR 07:56
PROVIDERS: ATTEND Urology
DX: N20.0 Calculus of kidney (principal); N21.0 Calculus in bladder; N39.0 Urinary tract infection, site not specified; N81.10 Cystocele, unspecified; N81.6 Rectocele; N95.2 Postmenopausal atrophic vaginitis; N36.2 Urethral caruncle; I25.10 Atherosclerotic heart disease of native coronary artery without angina pectoris; I25.2 Old myocardial infarction; I10 Essential (primary) hypertension; E78.5 Hyperlipidemia, unspecified; G20 Parkinson's disease; G89.29 Other chronic pain; Z88.6 Allergy status to analgesic agent; Z88.1 Allergy status to other antibiotic agents; Z20.822 Contact with and (suspected) exposure to COVID-19; Z79.82 Long term (current) use of aspirin; Z79.02 Long term (current) use of antithrombotics/antiplatelets; Z79.899 Other long term (current) drug therapy; Z99.3 Dependence on wheelchair; Z95.5 Presence of coronary angioplasty implant and graft
CPT/HCPCS: 36415; 50590; 52317; 71046; 74018; 80048; 83970; 84550; 85025; 87086; 88300; C1758; J0696; J1100; J2001; J2405; J2704; J3010; Q9967; U0002

== ENCOUNTER → 2021-05-27 | Outpatient (CLI) | payer MEDICARE ==
[~2021-05-27] MED LIST changes: -BELLADONNA/OPIUM 30 MG SUPP RC ONE; -CEFTRIAXONE 1 GM VIAL ONE; -DEXAMETHASONE SOD PHOS INJ 4 MG/ML SDV ONE; -EPHEDRINE SULFATE INJ 50 MG/ML VIAL ONE; -FENTANYL CITRATE/PF 100MCG/2 ML INJ ONE; +FUROSEMIDE INJ 10 MG/ML 4 ML VIAL ONE; -IOPAMIDOL 300MG/ML 50ML INFUS..BTL IV ONE; -LIDOCAINE HCL 2% LOCAL INJ 5 ML SDV VIAL INJ ONE; -ONDANSETRON HCL INJ 2MG/ML 2ML 2 MG/ML VIAL ONE; -POVIDONE IODINE 0.05% 0.05 % ML PO ONE; -PROPOFOL IV EMULSION 10 MG/ML 20 ML VIAL ONE; -SEVOFLURANE INHAL SOLN 250 ML PEN BTL ONE; -SODIUM CHLORIDE 0.9% 50ML 50 ML ONE
== END ==
LOC: NM 10:33
PROVIDERS: ATTEND Urology
DX: N20.0 Calculus of kidney (principal)
CPT/HCPCS: 74018; 78708; A9562; J1940

== ENCOUNTER → 2021-06-06 | Day surgery (SDC) | payer MEDICARE ==
[2021-06-03 11:12] LABS: BASOPHILS # (AUTO) 0.1 (0.0-0.1); BASOPHILS % 0.4 % (0.0-1.0); EOSINOPHILS # (AUTO) 0.3 (0.0-0.4); EOSINOPHILS % 2.8 % (0.0-6.0); HEMATOCRIT 40.5 % (34.2-44.1); HEMOGLOBIN 13.2 g/dL (12.0-16.0); LYMPHOCYTES # (AUTO) 3.4 (1.0-3.2); LYMPHOCYTES % 28.5 % (18.0-39.1); MEAN CORPUSCULAR HEMOGLOBIN 30.1 pg (28-32); MEAN CORPUSCULAR HGB CONC 32.6 g/dL (31-35); MEAN CORPUSCULAR VOLUME 92.3 fL (81-99); MONOCYTES # (AUTO) 0.7 (0.2-0.8); MONOCYTES % 5.9 % (4.4-11.3); NEUTROPHILS # (AUTO) 7.4 (2.1-6.9); NEUTROPHILS % 62.1 % (38.7-80.0); PLATELET COUNT 295 x10e3/uL (140-360); RED BLOOD COUNT 4.39 x10e6/uL (3.6-5.1); RED CELL DISTRIBUTION WIDTH 13.3 % (11.7-14.4)
[~2021-06-06] MED LIST changes: -FUROSEMIDE INJ 10 MG/ML 4 ML VIAL ONE; +LIDOCAINE HCL 2% LOCAL INJ 5 ML SDV VIAL INJ ONE; +LINZESS72 MCG PO; +PROPOFOL IV EMULSION 10 MG/ML 20 ML VIAL ONE; +SODIUM CHLORIDE 0.9% 50ML 50 ML ONE
[2021-06-06 10:30] VITALS: BP 132/63
== END | disposition home or self-care (01) ==
LOC: ENDO 08:58
PROVIDERS: ATTEND Internal Medicine Gastroenterology
DX: K22.2 Esophageal obstruction (principal); K29.70 Gastritis, unspecified, without bleeding; K29.80 Duodenitis without bleeding; K20.90 Esophagitis, unspecified without bleeding; K44.9 Diaphragmatic hernia without obstruction or gangrene; K59.00 Constipation, unspecified; I10 Essential (primary) hypertension; E03.9 Hypothyroidism, unspecified; G20 Parkinson's disease; I25.10 Atherosclerotic heart disease of native coronary artery without angina pectoris; I25.2 Old myocardial infarction; I48.91 Unspecified atrial fibrillation; N20.0 Calculus of kidney; Z88.6 Allergy status to analgesic agent; Z88.1 Allergy status to other antibiotic agents; Z01.810 Encounter for preprocedural cardiovascular examination; Z01.812 Encounter for preprocedural laboratory examination; Z20.822 Contact with and (suspected) exposure to COVID-19; Z79.02 Long term (current) use of antithrombotics/antiplatelets; Z79.82 Long term (current) use of aspirin; Z79.899 Other long term (current) drug therapy; Z95.5 Presence of coronary angioplasty implant and graft; Z80.0 Family history of malignant neoplasm of digestive organs
CPT/HCPCS: 36415; 43239; 43450; 85025; 93005; C9113; J2001; J2704; U0002

== ENCOUNTER 2021-12-06 14:34 | Emergency (ER) | payer MEDICARE ==
[~2021-12-06] VITALS: Ht 152.4 cm; Wt 59.0 kg
[~2021-12-06 14:34] MED LIST changes: -LIDOCAINE HCL 2% LOCAL INJ 5 ML SDV VIAL INJ ONE; -PROPOFOL IV EMULSION 10 MG/ML 20 ML VIAL ONE; -SODIUM CHLORIDE 0.9% 50ML 50 ML ONE
[2021-12-06] MEDS ORDERED: ACETAMINOPHEN 325 MG TAB PO ONE (17:00)
[2021-12-06] MEDS ORDERED: ACETAMINOPHEN 325 MG TAB ONE (17:10)
== END 2021-12-06 17:42 | disposition home or self-care (01) ==
LOC: FSED 14:38
DX: M47.814 Spondylosis without myelopathy or radiculopathy, thoracic region (principal); M47.816 Spondylosis without myelopathy or radiculopathy, lumbar region; M81.8 Other osteoporosis without current pathological fracture; G20 Parkinson's disease; E03.9 Hypothyroidism, unspecified; I10 Essential (primary) hypertension; I25.10 Atherosclerotic heart disease of native coronary artery without angina pectoris
CPT/HCPCS: 72128; 72131; 72192; 81003; 99283

== ENCOUNTER → 2022-05-05 | Day surgery (SDC) | payer MEDICARE ==
[~2022-05-05] MED LIST changes: +EPHEDRINE SULFATE INJ 50 MG/ML VIAL ONE; +LIDOCAINE HCL 2% LOCAL INJ 5 ML SDV VIAL INJ ONE; +METOCLOPRAMIDE HCL 10 MG/2ML VIAL ONE; +MULTI-VITAMIN1 EACH PO; +ONDANSETRON HCL INJ 2MG/ML 2ML 2 MG/ML VIAL ONE; +POVIDONE IODINE 0.05% 0.05 % ML PO ONE; +PROPOFOL IV EMULSION 10 MG/ML 20 ML VIAL ONE; +PROTONIX20 MG PO; +STOOL SOFTENER50 MG PO; +VITAMIN D350 MCG PO
[2022-05-05 09:45] VITALS: BP 117/86
== END | disposition home or self-care (01) ==
LOC: OR 06:25
PROVIDERS: ATTEND Internal Medicine Gastroenterology
DX: R19.5 Other fecal abnormalities (principal); D12.4 Benign neoplasm of descending colon; K57.30 Diverticulosis of large intestine without perforation or abscess without bleeding; K64.8 Other hemorrhoids; K29.70 Gastritis, unspecified, without bleeding; G20 Parkinson's disease; I10 Essential (primary) hypertension; I25.2 Old myocardial infarction; I48.91 Unspecified atrial fibrillation; I25.10 Atherosclerotic heart disease of native coronary artery without angina pectoris; E78.00 Pure hypercholesterolemia, unspecified; E03.9 Hypothyroidism, unspecified; M81.0 Age-related osteoporosis without current pathological fracture; M35.3 Polymyalgia rheumatica; M89.49 Other hypertrophic osteoarthropathy, multiple sites; M54.2 Cervicalgia; M54.50 Low back pain, unspecified; G89.29 Other chronic pain; Z88.6 Allergy status to analgesic agent; Z88.1 Allergy status to other antibiotic agents; Z79.02 Long term (current) use of antithrombotics/antiplatelets; Z79.82 Long term (current) use of aspirin; Z79.899 Other long term (current) drug therapy; Z95.5 Presence of coronary angioplasty implant and graft; Z86.73 Personal history of transient ischemic attack (TIA), and cerebral infarction without residual deficits; Z80.0 Family history of malignant neoplasm of digestive organs
CPT/HCPCS: 45385; J2001; J2405; J2704; J2765; 45378; 45380

== ENCOUNTER → 2023-03-30 | Outpatient (REF) | payer MEDICARE ==
[~2023-03-30] MED LIST changes: -EPHEDRINE SULFATE INJ 50 MG/ML VIAL ONE; -LIDOCAINE HCL 2% LOCAL INJ 5 ML SDV VIAL INJ ONE; -METOCLOPRAMIDE HCL 10 MG/2ML VIAL ONE; -ONDANSETRON HCL INJ 2MG/ML 2ML 2 MG/ML VIAL ONE; -POVIDONE IODINE 0.05% 0.05 % ML PO ONE; -PROPOFOL IV EMULSION 10 MG/ML 20 ML VIAL ONE
== END ==
LOC: RAD 10:06
PROVIDERS: ATTEND Urology
DX: N20.0 Calculus of kidney (principal)
CPT/HCPCS: 74018